=== PATIENT | male | born 1960 | race Hispanic/Latino ===

== ENCOUNTER 2021-01-02 12:30 | Inpatient (IN) | payer BC ==
--- OUTSIDE RECORDS SUMMARY | 2021-01-02 12:37 | XMS REPORT | Continuity of Care Document ---
:10/30/1959 Author Organization [facility] t Address [address] [place] [address] Dr. Bhagat [address] [place] [id number] Care Team Providers Name Role Phone TherapyAly Infusion Attending Clinician Unavailable Problems This patient has no known problems. Allergies, Adverse Reactions, Alerts This patient has no known allergies or adverse reactions. Medications This patient has no known medications. Procedures This patient has no known procedures. Encounters Start End Encounter Admission Attending Care Care Encounter Source Date/Time Date/Time Type Type Clinicians Facility Department ID 2021-01-01 2021-01-01 Nurse Therapy, [facility] [id number] 12:03:39 13:03:39 Visit Adc Aly Atkinson [id number] Infusion [place] [id number] Surgical [id number] [place] 053 Results This patient has no known results.
--- NOTE | 2021-01-02 14:41 | RAD REPORT ---
EXAM DESCRIPTION: RAD - Chest Single View - 01/02/2021 2:34 pm CLINICAL HISTORY: SOB COMPARISON: No comparisons FINDINGS: There are a few mild bilateral airspace opacities. The heart size is within normal limits. No acute osseous abnormality. No significant pleural effusions or pneumothorax. IMPRESSION: Mild bilateral airspace disease concerning for pneumonia.
[2021-01-02 14:49] LABS: Absolute Lymphocytes (CBC) 0.8 K/uL (0.7-4.9); Basophils % 0.3 % (0-1.3); Hematocrit 43.9 % (39.6-49.0); Lymphocytes % 21.9 % (15.3-44.8)
[2021-01-02] MEDS ORDERED: dexAMETHasone 10 MG/ML VIAL ONE (14:50)
[2021-01-02] MEDS ORDERED: LEVALBUTEROL 1.25 MG/3 ML NEB ONE (14:51)
[2021-01-02 14:53] LABS: Protime INR 1.08
[2021-01-02 15:10] LABS: ALT/SGPT 85 U/L (12-78); AST/SGOT 178 U/L (15-37); Albumin 3.4 g/dL (3.4-5.0); Alkaline Phosphatase 88 U/L (45-117); BUN Blood Urea Nitrogen 22 mg/dL (7-18); Bicarbonate 26 mmol/L (21-32); Bilirubin Direct 0.5 mg/dL (0-0.2); Bilirubin Total 0.9 mg/dL (0.2-1.0); Ferritin 831.6 ng/mL (26-388); Glucose Level 116 mg/dL (74-106); Lipase 2857 U/L (73-393); Potassium 4.4 mmol/L (3.5-5.1); Protein, Total 8.4 g/dL (6.4-8.2); Sodium Level 135 mmol/L (136-145); Troponin (Emerg Dept Use Only) < 0.02 ng/mL (0.0-0.045)
--- NOTE | 2021-01-02 17:13 | EDPHYS ---
Physician Documentation [facility] Name: Jose Juan Hall Age: 61 yrs Sex: Male : 10/30/1959 Arrival Date: 01/02/2021 Time: 13:10 Bed DIS12 Private MD: ED Physician Piyush Anderson HPI: 01/02 19:13 This 61 yrs old Male presents to ER via EMS with complaints of Shortness Of kdr Breath - COVID+. 19:13 The patient has shortness of breath at rest, with light activity. Onset: The kdr symptoms/episode began/occurred gradually, 2 day(s) ago. Duration: The symptoms are continuous, and are steadily getting worse. The patient's shortness of breath is aggravated by coughing, exertion, light activity. Associated signs and symptoms: Pertinent positives: non-productive cough, dizziness, nausea. Severity of symptoms: At their worst the symptoms were mild moderate just prior to arrival, in the emergency department the symptoms are unchanged. The patient has not experienced similar symptoms in the past. The patient has not recently seen a physician. EMS states that the patient is Covid positive. He was diagnosed 2 days ago. They noted on their arrival that his oxygen saturation was in the 80s on room air.. Historical: - Allergies: 15:01 tramadol; iw - Home Meds: 15:01 valsartan 90 mg oral once daily [Active]; gabapentin 300 mg oral cap 1 cap 3 times per iw day [Active]; - PMHx: 15:01 Hypertensive disorder; RA; iw - Immunization history:: Client reports having NOT received the Covid vaccine. ROS: 19:13 Constitutional: Negative for fever, chills, and weight loss, Eyes: Negative for injury, kdr pain, redness, and discharge, ENT: Negative for injury, pain, and discharge, Neck: Negative for injury, pain, and swelling, Cardiovascular: Negative for chest pain, palpitations, and edema, Abdomen/GI: Negative for abdominal pain, nausea, vomiting, diarrhea, and constipation, Back: Negative for injury and pain, : Negative for injury, bleeding, discharge, and swelling, MS/Extremity: Negative for injury and deformity, Skin: Negative for injury, rash, and discoloration, Neuro: Negative for headache, weakness, numbness, tingling, and seizure activity. Psych: Negative for depression, anxiety, suicide ideation, homicidal ideation, and hallucinations, Allergy/Immunology: Negative for hives, rash, and allergies, Endocrine: Negative for neck swelling, polydipsia, polyuria, polyphagia, and marked weight changes, Hematologic/Lymphatic: Negative for swollen nodes, abnormal bleeding, and unusual bruising. 19:13 Respiratory: Positive for cough, "sounds productive", dyspnea on exertion, shortness of breath, on exertion. Exam: 19:13 Constitutional: This is a well developed, well nourished patient who is awake, alert, kdr and in no acute distress. Head/Face: Normocephalic, atraumatic. Eyes: Pupils equal round and reactive to light, extra-ocular motions intact. Lids and lashes normal. Conjunctiva and sclera are non-icteric and not injected. Cornea within normal limits. Periorbital areas with no swelling, redness, or edema. Neck: Trachea midline, no thyromegaly or masses palpated, and no cervical lymphadenopathy. Supple, full range of motion without nuchal rigidity, or vertebral point tenderness. No Meningismus. Chest/axilla: Normal chest wall appearance and motion. Nontender with no deformity. No lesions are appreciated. Cardiovascular: Regular rate and rhythm with a normal S1 and S2. No gallops, murmurs, or rubs. Normal PMI, no JVD. No pulse deficits. Abdomen/GI: Soft, non-tender, with normal bowel sounds. No distension or tympany. No guarding or rebound. No evidence of tenderness throughout. Back: No spinal tenderness. No costovertebral tenderness. Full range of motion. Skin: Warm, dry with normal turgor. Normal color with no rashes, no lesions, and no evidence of cellulitis. MS/ Extremity: Pulses equal, no cyanosis. Neurovascular intact. Full, normal range of motion. Neuro: Awake and alert, GCS 15, oriented to person, place, time, and situation. Cranial nerves II-XII grossly intact. Motor strength 5/5 in all extremities. Sensory grossly intact. Cerebellar exam normal. Normal gait. Psych: Awake, alert, with orientation to person, place and time. Behavior, mood, and affect are within normal limits. 19:13 Cardiovascular: Rate: tachycardic, Rhythm: regular. 19:13 Respiratory: the patient does not display signs of respiratory distress, Respirations: normal, Breath sounds: rales, bronchial sounds, rhonchi, stridor, wheezing: that is mild. Vital Signs: 14:46 Weight 99.79 kg; ss 15:00 Pulse Ox 93% on 5 lpm NC; iw 15:46 BP 104 / 60; Pulse 107; Resp 25 S; Temp 97.4(TE); Pulse Ox 93% on 4 lpm NC; iw 15:49 Pulse Ox 87% on R/A; iw 17:51 BP 147 / 84; Pulse 96; Resp 28 S; Pulse Ox 85% 15 lpm ; iw MDM: 17:12 Patient medically screened. kdr 19:18 Data reviewed: vital signs, nurses notes, lab test result(s), EKG, radiologic studies. kdr Counseling: I had a detailed discussion with the patient and/or guardian regarding: the historical points, exam findings, and any diagnostic results supporting the discharge/admit diagnosis, lab results, radiology results, the need for further work-up and treatment in the hospital. 01/02 13:15 Order name: BMP; Complete Time: 15:23 kdr 01/02 13:15 Order name: Blood Culture Adult (2) kdr 01/02 13:15 Order name: C-Reactive Protein; Complete Time: 15:23 kdr 01/02 13:15 Order name: CBC with Diff kdr 01/02 13:15 Order name: D-Dimer; Complete Time: 15:23 kdr 01/02 13:15 Order name: Ferritin; Complete Time: 15:23 kdr 01/02 13:15 Order name: Flu kdr 01/02 13:15 Order name: LFT's; Complete Time: 15:23 kdr 01/02 13:15 Order name: Lactate; Complete Time: 15:23 kdr 01/02 13:15 Order name: Lipase; Complete Time: 15:23 kdr 01/02 13:15 Order name: PT-INR; Complete Time: 15:23 kdr 01/02 13:15 Order name: Procalcitonin; Complete Time: 17:07 kdr 01/02 13:15 Order name: Ptt, Activated; Complete Time: 15:23 kdr 01/02 13:15 Order name: Strep kdr 01/02 13:15 Order name: Troponin (emerg Dept Use Only); Complete Time: 15:23 kdr 01/02 13:15 Order name: Urine Microscopic Only kdr 01/02 13:15 Order name: CXR XRAY; Complete Time: 15:23 kdr 01/02 17:25 Order name: CBC Smear Scan EDMS 01/02 18:38 Order name: Lactate Sepsis 2 HR Follow-up EDMS 01/03 06:18 Order name: Comprehensive Metabolic Panel EDMS 01/03 06:18 Order name: Lipid Profile EDMS 01/03 06:18 Order name: C-Reactive Protein EDMS 01/03 06:18 Order name: Lipase EDMS 01/03 06:18 Order name: Ferritin EDMS 01/03 06:22 Order name: D-Dimer EDMS 01/03 06:28 Order name: CBC with Automated Diff EDMS 01/03 09:20 Order name: US EDMS 01/03 14:50 Order name: Manual Differential EDMS 01/02 13:15 Order name: EKG; Complete Time: 13:16 kdr 01/02 13:15 Order name: Cardiac monitoring; Complete Time: 15:41 kdr 01/02 13:15 Order name: Droplet/Contact Precautions; Complete Time: 15:41 kdr 01/02 13:15 Order name: EKG - Nurse/Tech; Complete Time: 15:41 kdr 01/02 13:15 Order name: IV Start; Complete Time: 15:41 kdr 01/02 13:15 Order name: Labs collected and sent; Complete Time: 15:41 kdr 01/02 13:15 Order name: O2 Per Protocol; Complete Time: 15:41 kdr 01/02 13:15 Order name: O2 Sat Monitoring; Complete Time: 15:41 kdr 01/02 14:15 Order name: Labs - recollect needed: recollect blue, green, and purple tubes; Complete eb Time: 14:59 01/02 18:51 Order name: NPO EDMS Administered Medications: 14:59 Drug: Decadron - Dexamethasone 10 mg Route: IVP; Site: right antecubital; iw 15:00 Drug: Xopenex (levalbuterol) (3) 1.25 mg Route: Inhalation; iw Disposition Summary: 01/02/21 17:12 Hospitalization Ordered Hospitalization Status: Inpatient Admission kdr Provider: Irwin Ashford Condition: Fair kdr Problem: new kdr Symptoms: have improved kdr Bed/Room Type: Standard kdr Location: Telemetry/MedSurg (Inpatient)(01/03/21 19:04) dw Room Assignment: 421(01/03/21 19:04) dw Diagnosis - Other viral pneumonia kdr - SARS-associated coronavirus as the cause of diseases classified elsewhere kdr - Respiratory failure, unspecified with hypoxia - Saturations were in the 80% range kdr on room air Forms: - Medication Reconciliation Form kdr - SBAR form kdr Signatures: Dispatcher [employer] EDMS Mariam Alejandro RN FRANK Sharonda Ye RN FRANK Piyush Anderson MD MD [facility] Yue Salvador RN RN Tresa Tena RN RN Lynette Layton Corrections: (The following items were deleted from the chart) 15:41 13:15 Moore ordered. kdr iw 18:16 13:15 Urine Dipstick-Ancillary ordered. kdr iw 20:51 17:12 [facility] 20:[facility]12 [facility] 01/03 19:04 01/02 20:51 [facility] ER HOLD [facility] 01/03 19:04 01/02 20:51 ERHOLD- [facility]
--- NOTE | 2021-01-02 17:13 | ER ---
Nurse's Notes [facility] Name: Jose Juan Hall Age: 61 yrs Sex: Male : 10/30/1959 Arrival Date: 01/02/2021 Time: 13:10 Bed DIS12 Private MD: Diagnosis: Other viral pneumonia;SARS-associated coronavirus as the cause of diseases classified elsewhere;Respiratory failure, unspecified with hypoxia-Saturations were in the 80% range on room air Presentation: 01/02 13:15 Chief complaint: EMS states: Patient is COVID positive. Diagnosed two days ago. Wants ss to be checked out. EMS reports pt was low 80's on RA. Coronavirus screen: Client reports previous positive COVID test result. Date of collection: January 02, 2021. 13:15 Method Of Arrival: EMS: [facility] ss 13:15 Acuity: HARRY 3 ss Triage Assessment: 13:17 General: Appears in no apparent distress. Behavior is calm, cooperative. Pain: Denies ss pain. Historical: - Allergies: 15:01 tramadol; iw - Home Meds: 15:01 valsartan 90 mg oral once daily [Active]; gabapentin 300 mg oral cap 1 cap 3 times per iw day [Active]; - PMHx: 15:01 Hypertensive disorder; RA; iw - Immunization history:: Client reports having NOT received the Covid vaccine. Screenin:58 Abuse screen: Denies threats or abuse. Denies injuries from another. Tuberculosis iw screening: No symptoms or risk factors identified. Assessment: 16:57 Reassessment: Patient appears in no apparent distress at this time. Patient and/or iw family updated on plan of care and expected duration. Pain level reassessed. 01/03 19:58 Reassessment: Report called to receiving nurse on fourth pt left via wheelchair with O2 zb pt tolerating well. Vital Signs: 01/02 14:46 Weight 99.79 kg; ss 15:00 Pulse Ox 93% on 5 lpm NC; iw 15:46 BP 104 / 60; Pulse 107; Resp 25 S; Temp 97.4(TE); Pulse Ox 93% on 4 lpm NC; iw 15:49 Pulse Ox 87% on R/A; iw 17:51 BP 147 / 84; Pulse 96; Resp 28 S; Pulse Ox 85% 15 lpm ; iw ED Course: 13:10 Patient arrived in ED. ss 13:13 Brandon Avalos NP is PHCP. pm1 13:13 Piyush Anderson MD is Attending Physician. pm1 13:17 Triage completed. ss 13:47 Inserted saline lock: 20 gauge in left antecubital area, using aseptic technique. Blood mt collected. 13:52 Yue Salvador, RN is Primary Nurse. iw 14:34 CXR XRAY In Process Unspecified. EDMS 17:09 Irwin Ashford MD is Hospitalizing Provider. kdr 01/03 19:27 Primary Nurse role handed off by Yue Salvador, RN mw2 Administered Medications: 01/02 14:59 Drug: Decadron - Dexamethasone 10 mg Route: IVP; Site: right antecubital; iw 15:00 Drug: Xopenex (levalbuterol) (3) 1.25 mg Route: Inhalation; iw Outcome: 17:12 Decision to Hospitalize by Provider. kdr 01/03 20:42 Patient left the ED. ea Signatures: Dispatcher [employer] EDMS Piyush Anderson MD MD [facility] Yue Salvador, FRANK MARIE Tresa Tena RN RN Brandon Avalos NP [employer]NA[employer] pm1 Anette Mckinnon mt, Elena RN FRANK Dian Neely mw2 Michelle Glavan RN RN zb Corrections: (The following items were deleted from the chart) 01/02 15:01 13:15 Chief complaint: EMS states: Patient is COVID positive. Diagnosised two days ago. iw Wants to be checked out. ss 18:15 15:46 BP 104 / 60; Pulse 107bpm; Resp 25bpm; Spontaneous; Pulse Ox 93% 4 lpm Nasal iw Cannula; iw
[2021-01-02 17:25] LABS: Blood Morphology Comment NOT SEEN (NOT SEEN); Platelet Estimate DECR; White Blood Cell Scan OK (OK)
[2021-01-02] MEDS ORDERED: ALBUTEROL 2.5 MG/3 ML NEB SOL NEB PRN (18:47)
[2021-01-02] MEDS ORDERED: MORPHINE 2 MG/ML SYR IV PRN (18:47)
[2021-01-02] MEDS ORDERED: ONDANSETRON 4 MG/2 ML VIAL IV PRN (18:47)
[2021-01-02] MEDS: NA CHLORIDE 0.9% 1,000 ML IV SCH (19:00)
[2021-01-02] MEDS: IPRATROPIUM BROM 0.5MG/2.5ML NEB SCH (19:55)
[2021-01-02] MEDS ORDERED: IPRATROPIUM BROM 0.5MG/2.5ML ONE ×2 (20:10→21:23)
[2021-01-02] MEDS ORDERED: METHYLPREDNISOLONE 125 MG INJ IV SCH (21:00)
[2021-01-02] MEDS ORDERED: APIXABAN 5 MG TABLET PO SCH (21:00)
[2021-01-02] MEDS ORDERED: METHYLPREDNISOLONE 40 MG INJ ONE (21:23)
[2021-01-02] MEDS ORDERED: APIXABAN 5 MG TABLET ONE (21:23)
[2021-01-02] MEDS ORDERED: ACETAMINOPHEN 500 MG TAB ONE (21:23)
[2021-01-02] MEDS ORDERED: NA CHLORIDE 0.9% 1,000 ML ONE (23:56)
[2021-01-03] MEDS: IPRATROPIUM BROM 0.5MG/2.5ML NEB SCH ×2 (02:24→08:40)
[2021-01-03] MEDS ORDERED: IPRATROPIUM BROM 0.5MG/2.5ML ONE ×2 (02:47→08:20)
[2021-01-03] MEDS: ACETAMINOPHEN 500 MG TAB PO PRN (05:15)
[2021-01-03] MEDS ORDERED: ACETAMINOPHEN 500 MG TAB ONE (05:28)
--- NOTE | 2021-01-03 05:54 | P.HP ---
Certification for Inpatient Patient admitted to: Inpatient With expected LOS: >2 Midnights Patient will require the following post-hospital care: None Practitioner: I am a practitioner with admitting privileges, knowledge of patient current condition, hospital course, and medical plan of care. Services: Services provided to patient in accordance with Admission requirements found in Title 42 Section 412.3 of the Code of Federal Regulations Patient History Date of Service: 01/02/21 Reason for admission: COVID-19 pneumonia History of Present Illness: Patient is a 61-year-old gentleman who came to the hospital with COVID-19 pneumonia. Patient was in respiratory distress. Patient was satting 70%. Patient was placed on 8 L oxygen and his saturations came up into the low 90s and high 80 percentile. Patient be admitted to the hospital for further evaluation. Patient was tested positive on Tuesday. Patient has history of rheumatoid arthritis. Patient is on immunosuppressants. Patient will be started on IV steroids. Will monitor patient's labs closely. Patient's lipase was also elevated. There is no known history of alcohol abuse. Repeat lipase level and abdominal ultrasound. If symptoms are not improving any starts having abdominal pain will do a dedicated CT scan. Patient be admitted to the hospital for further evaluation. Allergies tramadol Allergy (Verified 01/02/21 21:49) Anaphylaxis - Past Medical/Surgical History -: Rheumatoid arthritis -: Hypertension Past Surgical History: Patient denies surgical history - Family History Father Family History: Reviewed- Non-Contributory - Social History Smoking Status: Never smoker Alcohol use: No CD- Drugs: No Review of Systems 10-point ROS is otherwise unremarkable Physical Examination - Vital Signs Temperature: 99 F Blood Pressure: 140/70 Pulse: 99 Respirations: 24 Pulse Ox (%): 80 - Physical Exam General: Alert, In no apparent distress, Oriented x3 HEENT: Atraumatic, PERRLA, Mucous membr. moist/pink, EOMI, Sclerae nonicteric Neck: Supple, 2+ carotid pulse no bruit, No LAD, Without JVD or thyroid abnormality Respiratory: Diminished, Expiratory wheezes Cardiovascular: Regular rate/rhythm, Normal S1 S2 Gastrointestinal: Normal bowel sounds, Soft and benign, Non-distended, Tenderness Musculoskeletal: No clubbing, No swelling, No tenderness Integumentary: No rashes Neurological: Normal gait, Normal speech, Normal strength at 5/5 x4 extr, Normal tone, Sensation intact, Cranial nerves 3-12 intact, Normal affect Lymphatics: No axilla or inguinal lymphadenopathy - Studies Laboratory Data (last 24 hrs) 01/02/21 14:30: PT 12.4, INR 1.08, APTT 30.8 01/02/21 14:30: WBC 3.50 L, Hgb 14.3, Hct 43.9, Plt Count 146 L 01/02/21 14:30: Sodium 135 L, Potassium 4.4, BUN 22 H, Creatinine 1.19, Glucose 116 H, Total Bilirubin 0.9, AST 178 H, ALT 85 H, Alkaline Phosphatase 88, Lipase 2857 H Assessment & Plan - Problems (Diagnosis) (1) Pneumonia due to COVID-19 virus Current Visit: Yes Status: Acute (2) Hypoxemia Current Visit: Yes Status: Acute (3) Pancreatitis Current Visit: Yes Status: Acute (4) History of rheumatoid arthritis Current Visit: Yes Status: Acute - Plan 1. Continue with IV steroids 2. Monitor inflammatory markers 3. Repeat chest x-ray 4. O2 per protocol 5. Pulmonary consultation if symptoms worsen 6. Continue with albuterol inhaler therapy; also supportive care 7. Monitor LFTs and lipase along with abdominal ultrasound 8. GI and DVT prophylaxis Discharge Plan: Home Plan to discharge in: Greater than 2 days - Advance Directives Does patient have a Living Will: No Does patient have a Durable POA for Healthcare: No - Code Status/Comfort Care Code Status Assessed: Yes Code Status: Full Code Critical Care: No Time Spent Managing PTS Care (In Minutes): 35
[2021-01-03 06:04] LABS: Absolute Lymphocytes (CBC) 0.5 K/uL (0.7-4.9); Basophils % 0.2 % (0-1.3); Hematocrit 43.3 % (39.6-49.0); Lymphocytes % 31.2 % (15.3-44.8); MPV 7.9 fL (7.6-11.3); RBC Red Blood Cell Count 5.65 M/uL (4.33-5.43)
[2021-01-03 06:17] LABS: Albumin 3.2 g/dL (3.4-5.0); Bilirubin Total 0.8 mg/dL (0.2-1.0); Ferritin 815.2 ng/mL (26-388); Protein, Total 8.4 g/dL (6.4-8.2)
--- NOTE | 2021-01-03 06:19 | P.PN ---
Subjective Date of Service: 01/03/21 Chief Complaint: COVID-19 pneumonia Subjective: Improving (Less short of breath noted. Less nausea, vomiting and abdominal pain. Patient on 4 L per nasal cannula.) Physical Examination - Vital Signs Temperature: 99 F Blood Pressure: 140/70 Pulse: 99 Respirations: 24 Pulse Ox (%): 80 - Studies Laboratory Data (last 24 hrs) 01/02/21 14:30: PT 12.4, INR 1.08, APTT 30.8 01/02/21 14:30: WBC 3.50 L, Hgb 14.3, Hct 43.9, Plt Count 146 L 01/02/21 14:30: Sodium 135 L, Potassium 4.4, BUN 22 H, Creatinine 1.19, Glucose 116 H, Total Bilirubin 0.9, AST 178 H, ALT 85 H, Alkaline Phosphatase 88, Lipase 2857 H Assessment & Plan Discharge Plan: Home Plan to discharge in: 72 Hours Physician Review Additional Text: COVID: Positive, unvaccinated Initial chest x-ray: COMPARISON: No comparisons FINDINGS: There are a few mild bilateral airspace opacities. The heart size is within normal limits.No acute osseous abnormality. No significant pleural effusions or pneumothorax. IMPRESSION: Mild bilateral airspace disease concerning for pneumonia. Abdominal ultrasound: Pending Physical exam: General: Alert, In no apparent distress, Oriented x3 HEENT: Atraumatic, PERRLA, Mucous membr. moist/pink, EOMI, Sclerae nonicteric Neck: Supple, 2+ carotid pulse no bruit, No LAD, Without JVD or thyroid abnormality Respiratory: Letter air movement bilateral. Less oxygen use today. Currently on 4 L per nasal cannula. Cardiovascular: Regular rate/rhythm, Normal S1 S2 Gastrointestinal: Less pain to the epigastric region. Soft. Good bowel movements bilateral. Musculoskeletal: No clubbing, No swelling, No tenderness Integumentary: No rashes Neurological: Normal gait, Normal speech, Normal strength at 5/5 x4 extr, Normal tone, Sensation intact, Cranial nerves 3-12 intact, Normal affect Lymphatics: No axilla or inguinal lymphadenopathy Impression: Dyspnea secondary to bilateral Covid pneumonia with hypoxia Acute pancreatitis Elevated liver function suspect underlying fatty liver History of rheumatoid arthritis Plan: Dyspnea secondary to bilateral Covid pneumonia with hypoxia: His breathing has improved. Patient now down to 4 L per nasal cannula. Ferritin and CRP also improved. Liver function tests remain elevated but improved. Will adjust IV Solu-Medrol to 60 mg IV 3 times a day. Continue with vitamin supplementation. Will change DVT prophylaxis to Lovenox. Continue aspirin. Provide medication for cough. Continue to monitor CRP, ferritin and liver function tests. Pulmonology consulted. Await recommendations. Encourage incentive spirometer, proning, ambulation. Anticipate continued improvement over the next 72 hours. Acute pancreatitis: Lipase improved. Abdominal ultrasound pending. Will start clear liquid diet. Will advance diet slowly. Continue IV fluids for now. Hold fluids if taking good oral intake. Elevated liver function suspect underlying fatty liver: Will check abdominal ultrasound. Will monitor liver function test. History of rheumatoid arthritis: Continue with above plan of care. Obtain and verify home medication. CODE STATUS: Full code DVT prophylaxis: Lovenox Advance care [id number] minutes: Home at discharge Time Spent Managing Pts Care (In Minutes): 55
[2021-01-03] MEDS: NA CHLORIDE 0.9% 1,000 ML IV SCH ×2 (08:20→22:25)
[2021-01-03] MEDS ORDERED: METHYLPREDNISOLONE 125 MG INJ ONE ×3 (08:20→17:06)
[2021-01-03] MEDS ORDERED: APIXABAN 5 MG TABLET ONE (08:20)
[2021-01-03] MEDS ORDERED: NA CHLORIDE 0.9% 1,000 ML ONE (08:21)
[2021-01-03] MEDS: METHYLPREDNISOLONE 125 MG INJ IV SCH ×3 (09:00→21:00)
[2021-01-03] MEDS: ASPIRIN EC 81 MG TAB PO SCH (09:00)
[2021-01-03] MEDS: FAMOTIDINE 20 MG TAB PO SCH ×2 (09:00→22:24)
[2021-01-03] MEDS: VITAMIN D 1000 UNIT TAB PO SCH (09:00)
[2021-01-03] MEDS: THIAMINE HCL 100 MG TABLET PO SCH ×2 (09:00→22:24)
[2021-01-03] MEDS: ASCORBIC ACID 500 MG TABLET PO SCH ×3 (09:00→22:24)
--- NOTE | 2021-01-03 09:19 | RAD REPORT ---
EXAM DESCRIPTION: US - Abdomen Exam Complete - 01/03/2021 8:35 am CLINICAL HISTORY: Acute pancreatitis COMPARISON: No comparisons FINDINGS: Gallbladder size is normal. No gallstones, wall thickening or pericholecystic fluid. Commo n bile duct is normal with no common duct stone identified. Liver and spleen are normal size. Liver shows a coarsened, increased hepatic echogenicity is nonspeci fic but commonly seen with fatty infiltration. No capsule nodularity or focal lesion identifiable. Do ppler evaluation shows no portal vein abnormality. The pancreas is grossly normal but partially obscured by bowel. No peripancreatic mass or abnormal fl uid collection suspected. No hydronephrosis or suspicious mass in either kidney. Two echogenic foci in the upper pole right kid rico approximately 5 mm in size noted along with similar sized echogenic focus in the lower pole left kidney. These appear to be within the parenchyma of the kidney rather than a calyx. Long-term signifi cance is doubtful. These could be benign calcifications of the parenchyma. Angiomyolipomas are possib le. Aorta and IVC show no significant finding. No ascites or bulky lymphadenopathy. IMPRESSION: Fatty infiltration of a normal size liver. No focal liver lesions seen. No gallbladder a bnormality identified. Pancreas is grossly normal but partially obscured by bowel. Ongoing concerns for pancreatitis or need to delineate severity of pancreatitis could be addressed using CT imaging. No acute renal finding seen. Echogenic foci in each kidney within the parenchyma could be benign calc ifications or angiomyelolipomas. Long-term significance is doubtful. These could be further evaluated if CT imaging is performed for pancreatic assessment.
[2021-01-03] MEDS ORDERED: ASCORBIC ACID 500 MG TABLET ONE ×2 (12:29→17:06)
[2021-01-03] MEDS ORDERED: ASPIRIN 81 MG CHEWABLE TABLET ONE (12:29)
[2021-01-03] MEDS ORDERED: VITAMIN D 1000 UNIT TAB ONE (12:29)
[2021-01-03] MEDS ORDERED: THIAMINE HCL 100 MG TABLET ONE (12:29)
[2021-01-03] MEDS ORDERED: ZINC SULFATE 220 MG CAP ONE (12:29)
[2021-01-03] MEDS ORDERED: FAMOTIDINE 20 MG TAB ONE (12:30)
[2021-01-03 14:49] LABS: Platelet Estimate DECR
[2021-01-03 14:50] LABS: Blood Morphology Comment NOT SEEN (NOT SEEN)
[2021-01-03] MEDS: ENOXAPARIN 40 MG/0.4 ML SQ SCH (17:00)
[2021-01-03] MEDS: HYDROCODONE/APAP 7.5/325 MG TAB PO PRN (23:05)
--- NOTE | 2021-01-04 06:22 | P.PN ---
Subjective Date of Service: 01/04/21 Chief Complaint: COVID-19 pneumonia Subjective: Improving (Patient reports improvement. Less abdominal pain noted. Currently on 5 L per nasal cannula.) Physical Examination - Vital Signs Temperature: 97 F Blood Pressure: 135/70 Pulse: 80 Respirations: 18 Pulse Ox (%): 88 Assessment & Plan Discharge Plan: Home Plan to discharge in: 48 Hours Physician Review Additional Text: COVID: Positive, unvaccinated Initial chest x-ray: COMPARISON: No comparisons FINDINGS: There are a few mild bilateral airspace opacities. The heart size is within normal limits.No acute osseous abnormality. No significant pleural effusions or pneumothorax. IMPRESSION: Mild bilateral airspace disease concerning for pneumonia. Abdominal ultrasound: COMPARISON: No comparisons FINDINGS: Gallbladder size is normal. No gallstones, wall thickening or pericholecystic fluid. Common bile duct is normal with no common duct stone identified. Liver and spleen are normal size. Liver shows a coarsened, increased hepatic echogenicity is nonspecific but commonly seen with fatty infiltration. No capsule nodularity or focal lesion identifiable. Doppler evaluation shows no portal vein abnormality. The pancreas is grossly normal but partially obscured by bowel. No peripancreatic mass or abnormal fluid collection suspected. No hydronephrosis or suspicious mass in either kidney. Two echogenic foci in the upper pole right kidney approximately 5 mm in size noted along with similar sized echogenic focus in the lower pole left kidney. These appear to be within the parenchyma of the kidney rather than a calyx. Long-term significance is doubtful. These could be benign calcifications of the parenchyma. Angiomyolipomas are possible. Aorta and IVC show no significant finding. No ascites or bulky lymphadenopathy. IMPRESSION: Fatty infiltration of a normal size liver. No focal liver lesions seen. No gallbladder abnormality identified. Pancreas is grossly normal but partially obscured by bowel. Ongoing concerns for pancreatitis or need to delineate severity of pancreatitis could be addressed using CT imaging. No acute renal finding seen. Echogenic foci in each kidney within the parenchyma could be benign calcifications or angiomyelolipomas. Long-term significance is doubtful. These could be further evaluated if CT imaging is performed for pancreatic assessment. Physical exam: General: Alert, In no apparent distress, Oriented x3 HEENT: Atraumatic, PERRLA, Mucous membr. moist/pink, EOMI, Sclerae nonicteric Neck: Supple, 2+ carotid pulse no bruit, No LAD, Without JVD or thyroid abnormality Respiratory: Better air movement bilateral. Currently on 5 L per nasal cannula. Cardiovascular: Regular rate/rhythm, Normal S1 S2 Gastrointestinal: Less pain to the epigastric region. Soft. Good bowel movements bilateral. Musculoskeletal: No clubbing, No swelling, No tenderness Integumentary: No rashes Neurological: Normal gait, Normal speech, Normal strength at 5/5 x4 extr, Normal tone, Sensation intact, Cranial nerves 3-12 intact, Normal affect Lymphatics: No axilla or inguinal lymphadenopathy Impression: Dyspnea secondary to bilateral Covid pneumonia with hypoxia Acute pancreatitis Elevated liver function suspect underlying fatty liver History of rheumatoid arthritis Plan: Dyspnea secondary to bilateral Covid pneumonia with hypoxia: Overall patient improved. Currently on 5 L per nasal cannula. Continue with Solu-Medrol and vitamin supplementation. CRP and ferritin improved. Will advance diet to full liquid for his pancreatitis. Anticipate continued improvement. Patient on Lovenox for DVT prophylaxis. Continue to monitor CRP, ferritin and liver function tests. Pulmonology consulted. Await recommendations. Encourage incentive spirometer, proning, ambulation. Anticipate continued improvement over the next 48 hours. Acute pancreatitis: Lipase improved. Abdominal ultrasound pending. Will advance diet to full liquid. Consider changing diet to regular tomorrow. Elevated liver function suspect underlying fatty liver: Continue to monitor liver function test. History of rheumatoid arthritis: Continue with above plan of care. Obtain and v erify home medication. CODE STATUS: Full code DVT prophylaxis: Lovenox Advance care [id number] minutes: Home at discharge Time Spent Managing Pts Care (In Minutes): 55
[2021-01-04 07:23] LABS: Absolute Lymphocytes (CBC) 0.6 K/uL (0.7-4.9); Basophils % 0.1 % (0-1.3); Hematocrit 41.7 % (39.6-49.0); Lymphocytes % 9.5 % (15.3-44.8); MPV 7.5 fL (7.6-11.3); RBC Red Blood Cell Count 5.44 M/uL (4.33-5.43)
[2021-01-04] MEDS: METHYLPREDNISOLONE 125 MG INJ IV SCH ×3 (07:44→21:40)
[2021-01-04] MEDS: THIAMINE HCL 100 MG TABLET PO SCH ×2 (07:44→21:41)
[2021-01-04] MEDS: VITAMIN D 1000 UNIT TAB PO SCH (07:44)
[2021-01-04] MEDS: FAMOTIDINE 20 MG TAB PO SCH ×2 (07:44→21:41)
[2021-01-04] MEDS: ASCORBIC ACID 500 MG TABLET PO SCH ×3 (07:44→21:41)
[2021-01-04] MEDS: ASPIRIN EC 81 MG TAB PO SCH (07:44)
[2021-01-04 07:46] LABS: ALT/SGPT 62 U/L (12-78); AST/SGOT 93 U/L (15-37); Alkaline Phosphatase 77 U/L (45-117); BUN Blood Urea Nitrogen 18 mg/dL (7-18); Bicarbonate 27 mmol/L (21-32); Bilirubin Total 0.8 mg/dL (0.2-1.0); Ferritin 734.5 ng/mL (26-388); Glucose Level 130 mg/dL (74-106); Lipase 1575 U/L (73-393); Magnesium 2.2 mg/dL (1.8-2.4); Potassium 4.2 mmol/L (3.5-5.1); Protein, Total 7.5 g/dL (6.4-8.2); Sodium Level 141 mmol/L (136-145)
[2021-01-04] MEDS: HYDROCODONE/APAP 7.5/325 MG TAB PO PRN ×2 (07:47→16:03)
[2021-01-04] MEDS: NA CHLORIDE 0.9% 1,000 ML IV SCH (11:38)
--- NOTE | 2021-01-04 13:54 | P.CNS ---
Date of Consult: 01/04/21 Reason for Consult: COVID penumonia Chief Complaint: COVID-19 pneumonia History of Present Illness: Age 61 AW COVID penumonia/ severe COVID/ on NC/Stable Allergies tramadol Allergy (Verified 01/02/21 21:49) Anaphylaxis Home Medications: Ascorbic Acid [Vitamin C*] 1 tab PO DAILY 01/04/21 Celecoxib [Celebrex] 100 mg PO BID 01/04/21 Cholecalciferol (Vitamin D3) [Vitamin D3] 1,000 unit PO DAILY 01/04/21 Cyanocobalamin (Vitamin B-12) [Vitamin B12] 2,500 mcg PO DAILY 01/04/21 Folic Acid 1 mg PO DAILY 01/04/21 Gabapentin 300 mg PO TID 01/04/21 Hydrocodone Bit/Acetaminophen [Hydrocodon-Acetaminophn 10-325] 1 tab PO TID 01/04/21 Multivit-Min/FA/Lycopen/Lutein [Centravites 50 Plus Tablet] 1 tab PO DAILY 01/04/21 Secukinumab [Cosentyx Pen] 300 mg SQ SEECOM 01/04/21 Valsartan [Diovan] 160 mg PO DAILY 01/04/21 Zinc Sulfate [Zinc Sulfate*] 1 tab PO DAILY 01/04/21 - Past Medical/Surgical History -: Rheumatoid arthritis -: Hypertension - Family History Father Family History: Reviewed- Non-Contributory - Social History Alcohol use: No CD- Drugs: No Review of Systems General: Weakness Respiratory: Shortness of Breath Physical Examination Temp Pulse Resp BP Pulse Ox 98.8 F 86 23 H 140/80 85 L 01/04/21 08:00 01/04/21 08:00 01/04/21 08:47 01/04/21 08:00 01/04/21 08:47 General: Alert, Oriented x3, Cooperative - Problems (1) Pneumonia due to COVID-19 virus Current Visit: Yes Status: Acute Plan: Age 61 AW COVID pneumonia/Doing well/ Poss DC am/ Set up for homeO2/labs and XRY reviewed/ will not qulaify for Barctinib/poss DC home AM
[2021-01-04] MEDS: ENOXAPARIN 40 MG/0.4 ML SQ SCH (16:02)
[2021-01-04] MEDS: GABAPENTIN 300 MG CAP PO SCH (21:41)
[2021-01-05 05:49] LABS: Absolute Lymphocytes (CBC) 0.4 K/uL (0.7-4.9); Basophils % 0.1 % (0-1.3); Hematocrit 39.7 % (39.6-49.0); Lymphocytes % 9.8 % (15.3-44.8); MPV 7.7 fL (7.6-11.3)
[2021-01-05 06:04] LABS: ALT/SGPT 67 U/L (12-78); AST/SGOT 90 U/L (15-37); Albumin 2.6 g/dL (3.4-5.0); Alkaline Phosphatase 76 U/L (45-117); BUN Blood Urea Nitrogen 18 mg/dL (7-18); Bicarbonate 28 mmol/L (21-32); Bilirubin Total 0.7 mg/dL (0.2-1.0); Ferritin 581.7 ng/mL (26-388); Glucose Level 130 mg/dL (74-106); Lipase 1000 U/L (73-393); Magnesium 2.3 mg/dL (1.8-2.4); Potassium 4.3 mmol/L (3.5-5.1); Protein, Total 6.6 g/dL (6.4-8.2); Sodium Level 140 mmol/L (136-145)
--- NOTE | 2021-01-05 06:25 | P.PN ---
Subjective Date of Service: 01/05/21 Chief Complaint: COVID-19 pneumonia Subjective: Other (Patient tolerating full liquid diet. Less pain noted. Reports some shortness of breath today.) Physical Examination - Vital Signs Temperature: 98.5 F Blood Pressure: 100/65 Pulse: 72 Respirations: 16 Pulse Ox (%): 83 Assessment & Plan Discharge Plan: Home Plan to discharge in: 48 Hours Physician Review Additional Text: COVID: Positive, unvaccinated Initial chest x-ray: COMPARISON: No comparisons FINDINGS: There are a few mild bilateral airspace opacities. The heart size is within normal limits.No acute osseous abnormality. No significant pleural effusions or pneumothorax. IMPRESSION: Mild bilateral airspace disease concerning for pneumonia. Abdominal ultrasound: COMPARISON: No comparisons FINDINGS: Gallbladder size is normal. No gallstones, wall thickening or pericholecystic fluid. Common bile duct is normal with no common duct stone identified. Liver and spleen are normal size. Liver shows a coarsened, increased hepatic echogenicity is nonspecific but commonly seen with fatty infiltration. No capsule nodularity or focal lesion identifiable. Doppler evaluation shows no portal vein abnormality. The pancreas is grossly normal but partially obscured by bowel. No peripancreatic mass or abnormal fluid collection suspected. No hydronephrosis or suspicious mass in either kidney. Two echogenic foci in the upper pole right kidney approximately 5 mm in size noted along with similar sized echogenic focus in the lower pole left kidney. These appear to be within the parenchyma of the kidney rather than a calyx. Long-term significance is doubtful. These could be benign calcifications of the parenchyma. Angiomyolipomas are possible. Aorta and IVC show no significant finding. No ascites or bulky lymphadenopathy. IMPRESSION: Fatty infiltration of a normal size liver. No focal liver lesions seen. No gallbladder abnormality identified. Pancreas is grossly normal but partially obscured by bowel. Ongoing concerns for pancreatitis or need to delineate severity of pancreatitis could be addressed using CT imaging. No acute renal finding seen. Echogenic foci in each kidney within the parenchyma could be benign calcifications or angiomyelolipomas. Long-term significance is doubtful. These could be further evaluated if CT imaging is performed for pancreatic assessment. Physical exam: General: Alert, In no apparent distress, Oriented x3 HEENT: Mucous membranes moist Neck: Supple Respiratory: Clear. Currently on 6 L per nasal cannula Cardiovascular: Regular rate/rhythm, Normal S1 S2 Gastrointestinal: Continue to have less pain to the epigastric region. Good bowel movement Musculoskeletal: No clubbing, No swelling, No tenderness Integumentary: No rashes Neurological: Normal gait, Normal speech, Normal strength at 5/5 x4 extr, Normal tone, Sensation intact, Cranial nerves 3-12 intact, Normal affect Lymphatics: No axilla or inguinal lymphadenopathy Impression: Dyspnea secondary to bilateral Covid pneumonia with hypoxia Acute pancreatitis Elevated liver function with fatty liver History of rheumatoid arthritis Plan: Dyspnea secondary to bilateral Covid pneumonia with hypoxia: Clinically patient improved. Currently on 6 L per nasal cannula. Continue to wean off oxygen to maintain sats above 93%. Continue IV steroids and supplementation. CRP and ferritin improved. Lipase improved. Patient tolerating current full liquid diet. Will advance to GI soft diet. Patient on Lovenox for DVT prophylaxis. Continue to monitor CRP, ferritin, lipase and liver function tests. Encourage incentive spirometer, proning, ambulation. Anticipate continued improvement over the next 48 hours per. Acute pancreatitis: Lipase improved. Tolerating full liquid diet. Will increase diet to GI soft. Continue to monitor lab closely. Elevated liver function with fatty liver: Continue to monitor liver function test. History of rheumatoid arthritis: Continue home medications of gabapentin. Pain medication provided. CODE STATUS: Full code DVT prophylaxis: Lovenox Advance care [id number] minutes: Home at discharge Time Spent Managing Pts Care (In Minutes): 55
[2021-01-05] MEDS: METHYLPREDNISOLONE 125 MG INJ IV SCH ×3 (07:36→20:57)
[2021-01-05] MEDS: HOME MED 1 EA UNK (Cyanocobalamin (Vitamin B-12) [Vitamin B12] 2,500 MCG Tablet) PO SCH (07:37)
[2021-01-05] MEDS: FAMOTIDINE 20 MG TAB PO SCH ×2 (07:37→20:57)
[2021-01-05] MEDS: FOLIC ACID 1 MG TABLET PO SCH (07:37)
[2021-01-05] MEDS: GABAPENTIN 300 MG CAP PO SCH ×3 (07:37→20:57)
[2021-01-05] MEDS: ASCORBIC ACID 500 MG TABLET PO SCH ×3 (07:37→20:57)
[2021-01-05] MEDS: VITAMIN D 1000 UNIT TAB PO SCH (07:37)
[2021-01-05] MEDS: ASPIRIN EC 81 MG TAB PO SCH (07:37)
[2021-01-05] MEDS: THIAMINE HCL 100 MG TABLET PO SCH ×2 (07:38→20:57)
--- NOTE | 2021-01-05 14:39 | RAD REPORT ---
EXAM DESCRIPTION: RAD - Chest Single View - 01/05/2021 2:13 pm CLINICAL HISTORY: COVID-19 pneumonia COMPARISON: Portable January 02 TECHNIQUE: AP portable chest image was obtained 01/05/2021 2:13 pm . FINDINGS: Lung volumes are low. Interstitial and alveolar opacities are present. Findings consistent with the provided history of COVID-19 pneumonia. Lower lung volume and technical differences three-v iew differential in appearance. There is probably been a slight progression in the disease with the l ower lung volume exaggerating the differential. Heart and vasculature are normal. No measurable pleural effusion and no pneumothorax. No acute bony abnormality seen. No acute aortic findings suspected. IMPRESSION: Stable to slightly worsened COVID-19 pneumonia pattern since January 02.
[2021-01-05] MEDS: ENOXAPARIN 40 MG/0.4 ML SQ SCH (16:02)
[2021-01-06] MEDS: ACETAMINOPHEN 500 MG TAB PO PRN (05:07)
[2021-01-06 06:10] LABS: Absolute Lymphocytes (CBC) 0.3 K/uL (0.7-4.9); Basophils % 0.1 % (0-1.3); Hematocrit 40.7 % (39.6-49.0); MPV 7.9 fL (7.6-11.3); RBC Red Blood Cell Count 5.31 M/uL (4.33-5.43)
--- NOTE | 2021-01-06 06:12 | P.PN ---
Subjective Date of Service: 01/06/21 Chief Complaint: COVID-19 pneumonia Subjective: Other (Patient tolerating diet. Pain improved. Patient requiring 15 L) Physical Examination - Vital Signs Temperature: 98.2 F Blood Pressure: 150/80 Pulse: 47 Respirations: 20 Pulse Ox (%): 93 Assessment & Plan Discharge Plan: Home Plan to discharge in: 72 Hours Physician Review Additional Text: COVID: Positive, unvaccinated Initial chest x-ray: COMPARISON: No comparisons FINDINGS: There are a few mild bilateral airspace opacities. The heart size is within normal limits.No acute osseous abnormality. No significant pleural effusions or pneumothorax. IMPRESSION: Mild bilateral airspace disease concerning for pneumonia. Abdominal ultrasound: COMPARISON: No comparisons FINDINGS: Gallbladder size is normal. No gallstones, wall thickening or pericholecystic fluid. Common bile duct is normal with no common duct stone identified. Liver and spleen are normal size. Liver shows a coarsened, increased hepatic echogenicity is nonspecific but commonly seen with fatty infiltration. No capsule nodularity or focal lesion identifiable. Doppler evaluation shows no portal vein abnormality. The pancreas is grossly normal but partially obscured by bowel. No peripancreatic mass or abnormal fluid collection suspected. No hydronephrosis or suspicious mass in either kidney. Two echogenic foci in the upper pole right kidney approximately 5 mm in size noted along with similar sized echogenic focus in the lower pole left kidney. These appear to be within the parenchyma of the kidney rather than a calyx. Long-term significance is doubtful. These could be benign calcifications of the parenchyma. Angiomyolipomas are possible. Aorta and IVC show no significant finding. No ascites or bulky lymphadenopathy. IMPRESSION: Fatty infiltration of a normal size liver. No focal liver lesions seen. No gallbladder abnormality identified. Pancreas is grossly normal but partially obscured by bowel. Ongoing concerns for pancreatitis or need to delineate severity of pancreatitis could be addressed using CT imaging. No acute renal finding seen. Echogenic foci in each kidney within the parenchyma could be benign calcifications or angiomyelolipomas. Long-term significance is doubtful. These could be further evaluated if CT imaging is performed for pancreatic assessment. Follow up CXR 01/05/2021: COMPARISON: Portable January 02 TECHNIQUE: AP portable chest image was obtained 01/05/2021 2:13 pm . FINDINGS: Lung volumes are low. Interstitial and alveolar opacities are present. Findings consistent with the provided history of COVID-19 pneumonia. Lower lung volume and technical differences three-view differential in appearance. There is probably been a slight progression in the disease with the lower lung volume exaggerating the differential. Heart and vasculature are normal. No measurable pleural effusion and no pneumothorax. No acute bony abnormality seen. No acute aortic findings suspected. IMPRESSION: Stable to slightly worsened COVID-19 pneumonia pattern since January 02. Physical exam: General: Alert, In no apparent distress, Oriented x3 HEENT: Mucous membranes moist Neck: Supple Respiratory: Clear. Currently on 15 L per nasal cannula Cardiovascular: Regular rate/rhythm, Normal S1 S2 Gastrointestinal: Less pain to the epigastric region. No significant abdominal distention. Musculoskeletal: No clubbing, No swelling, No tenderness Integumentary: No rashes Neurological: Normal gait, Normal speech, Normal strength at 5/5 x4 extr, Normal tone, Sensation intact, Cranial nerves 3-12 intact, Normal affect Lymphatics: No axilla or inguinal lymphadenopathy Impression: Dyspnea secondary to bilateral Covid pneumonia with hypoxia Acute pancreatitis Elevated liver function with fatty liver History of rheumatoid arthritis Plan: Dyspnea secondary to bilateral Covid pneumonia with hypoxia: Patient reports improvement. Increase oxygen intake noted at 15 L per nasal cannula. Continue to wean off oxygen to maintain sats above 93%. CRP and ferritin improved. Will decrease IV steroids. Continue with vitamin supplementation patient tolerating diet. Lipase improved. Encourage ambulation. Will provide medication for constipation. Patient on Lovenox for DVT prophylaxis. Continue to monitor CRP, ferritin, lipase and liver function tests. Encourage incentive spirometer, proning, ambulation. Anticipate continued improvement over the next 48 hours. Acute pancreatitis: Lipase improved. Tolerating GI soft. Continue to monitor lab closely. Elevated liver function with fatty liver: Continue to monitor liver function test. History of rheumatoid arthritis: Continue home medications of gabapentin. Pain medication provided. CODE STATUS: Full code DVT prophylaxis: Lovenox Advance care [id number] minutes: Home at discharge Time Spent Managing Pts Care (In Minutes): 55
[2021-01-06 06:32] LABS: Albumin 2.7 g/dL (3.4-5.0); Bilirubin Total 0.9 mg/dL (0.2-1.0); C-Reactive Protein 8.97 mg/L (<3.00); Ferritin 564.5 ng/mL (26-388); Magnesium 2.3 mg/dL (1.8-2.4); Potassium 4.4 mmol/L (3.5-5.1); Protein, Total 6.9 g/dL (6.4-8.2)
[2021-01-06] MEDS: HOME MED 1 EA UNK (Cyanocobalamin (Vitamin B-12) [Vitamin B12] 2,500 MCG Tablet) PO SCH (09:00)
[2021-01-06] MEDS: FOLIC ACID 1 MG TABLET PO SCH (09:37)
[2021-01-06] MEDS: GABAPENTIN 300 MG CAP PO SCH ×3 (09:37→21:16)
[2021-01-06] MEDS: FAMOTIDINE 20 MG TAB PO SCH ×2 (09:37→21:16)
[2021-01-06] MEDS: THIAMINE HCL 100 MG TABLET PO SCH ×2 (09:38→21:16)
[2021-01-06] MEDS: ASCORBIC ACID 500 MG TABLET PO SCH ×3 (09:38→21:16)
[2021-01-06] MEDS: METHYLPREDNISOLONE 125 MG INJ IV SCH (09:38)
[2021-01-06] MEDS: VITAMIN D 1000 UNIT TAB PO SCH (09:39)
[2021-01-06] MEDS: ASPIRIN EC 81 MG TAB PO SCH (09:46)
[2021-01-06] MEDS: METHYLPREDNISOLONE 40 MG INJ IV SCH ×3 (13:36→21:16)
[2021-01-06] MEDS ORDERED: LACTULOSE 20 GM/30 ML UCUP PO PRN (13:43)
[2021-01-06] MEDS: ENOXAPARIN 40 MG/0.4 ML SQ SCH (17:58)
[2021-01-07 06:05] LABS: Absolute Lymphocytes (CBC) 0.5 K/uL (0.7-4.9); Basophils % 0.1 % (0-1.3); Hematocrit 42.7 % (39.6-49.0); Lymphocytes % 11.4 % (15.3-44.8); MPV 7.6 fL (7.6-11.3); RBC Red Blood Cell Count 5.63 M/uL (4.33-5.43)
--- NOTE | 2021-01-07 06:18 | P.PN ---
Subjective Date of Service: 01/07/21 Chief Complaint: COVID-19 pneumonia Subjective: Improving Physical Examination - Vital Signs Temperature: 97.9 F Blood Pressure: 146/75 Pulse: 68 Respirations: 16 Pulse Ox (%): 90 Assessment & Plan Discharge Plan: Home Plan to discharge in: 72 Hours Physician Review Additional Text: COVID: Positive, unvaccinated Initial chest x-ray: COMPARISON: No comparisons FINDINGS: There are a few mild bilateral airspace opacities. The heart size is within normal limits.No acute osseous abnormality. No significant pleural effusions or pneumothorax. IMPRESSION: Mild bilateral airspace disease concerning for pneumonia. Abdominal ultrasound: COMPARISON: No comparisons FINDINGS: Gallbladder size is normal. No gallstones, wall thickening or pericholecystic fluid. Common bile duct is normal with no common duct stone identified. Liver and spleen are normal size. Liver shows a coarsened, increased hepatic echogenicity is nonspecific but commonly seen with fatty infiltration. No capsule nodularity or focal lesion identifiable. Doppler evaluation shows no portal vein abnormality. The pancreas is grossly normal but partially obscured by bowel. No peripancreatic mass or abnormal fluid collection suspected. No hydronephrosis or suspicious mass in either kidney. Two echogenic foci in the upper pole right kidney approximately 5 mm in size noted along with similar sized echogenic focus in the lower pole left kidney. These appear to be within the parenchyma of the kidney rather than a calyx. Long-term significance is doub tful. These could be benign calcifications of the parenchyma. Angiomyolipomas are possible. Aorta and IVC show no significant finding. No ascites or bulky lymphadenopathy. IMPRESSION: Fatty infiltration of a normal size liver. No focal liver lesions seen. No gallbladder abnormality identified. Pancreas is grossly normal but partially obscured by bowel. Ongoing concerns for pancreatitis or need to delineate severity of pancreatitis could be addressed using CT imaging. No acute renal finding seen. Echogenic foci in each kidney within the parenchyma could be benign calcifications or angiomyelolipomas. Long-term significance is doubtful. These could be further evaluated if CT imaging is performed for pancreatic assessment. Follow up CXR 01/05/2021: COMPARISON: Portable January 02 TECHNIQUE: AP portable chest image was obtained 01/05/2021 2:13 pm . FINDINGS: Lung volumes are low. Interstitial and alveolar opacities are present. Findings consistent with the provided history of COVID-19 pneumonia. Lower lung volume and technical differences three-view differential in appearance. There is probably been a slight progression in the disease with the lower lung volume exaggerating the differential. Heart and vasculature are normal. No measurable pleural effusion and no pneumothorax. No acute bony abnormality seen. No acute aortic findings suspected. IMPRESSION: Stable to slightly worsened COVID-19 pneumonia pattern since January 02. Physical exam: General: Alert, In no apparent distress, Oriented x3 HEENT: Mucous membranes moist Neck: Supple Respiratory: Clear. Currently on 15 L per nasal cannula Cardiovascular: Regular rate/rhythm, Normal S1 S2 Gastrointestinal: Less pain to the epigastric region. No significant abdominal distention. Musculoskeletal: No clubbing, No swelling, No tenderness Integumentary: No rashes Neurological: Normal gait, Normal speech, Normal strength at 5/5 x4 extr, Normal tone, Sensation intact, Cranial nerves 3-12 intact, Normal affect Lymphatics: No axilla or inguinal lymphadenopathy Impression: Dyspnea secondary to bilateral Covid pneumonia with hypoxia Acute pancreatitis Elevated liver function with fatty liver History of rheumatoid arthritis Plan: Dyspnea secondary to bilateral Covid pneumonia with hypoxia: Patient reports improvement. Stable on 15 L per nasal cannula. Continue to wean off oxygen to maintain sats above 93%. CRP and ferritin improved. Will decrease IV steroids. Continue with vitamin supplementation patient tolerating diet. Lipase improved. Encourage ambulation. Will provide medication for constipation. Patient on Lovenox for DVT prophylaxis. Continue to monitor CRP, ferritin, lipase and liver function tests. Encourage incentive spirometer, proning, ambulation. Will order PT to ambulate. Anticipate continued improvement over the next 48 hours. Acute pancreatitis: Lipase improved. Tolerating GI soft. Continue to monitor lab closely. Elevated liver function with fatty liver: Continue to monitor liver function test. History of rheumatoid arthritis: Continue home medications of gabapentin. Pain medication provided. CODE STATUS: Full code DVT prophylaxis: Lovenox Advance care [id number] minutes: Home at discharge Time Spent Managing Pts Care (In Minutes): 55
[2021-01-07 06:28] LABS: ALT/SGPT 148 U/L (12-78); AST/SGOT 116 U/L (15-37); Albumin 2.8 g/dL (3.4-5.0); Alkaline Phosphatase 83 U/L (45-117); BUN Blood Urea Nitrogen 19 mg/dL (7-18); Bicarbonate 26 mmol/L (21-32); Bilirubin Total 1.1 mg/dL (0.2-1.0); Ferritin 690.2 ng/mL (26-388); Glucose Level 131 mg/dL (74-106); Lipase 787 U/L (73-393); Magnesium 2.4 mg/dL (1.8-2.4); Protein, Total 7.1 g/dL (6.4-8.2); Sodium Level 141 mmol/L (136-145)
[2021-01-07] MEDS: GABAPENTIN 300 MG CAP PO SCH ×3 (09:00→21:36)
[2021-01-07] MEDS: ASCORBIC ACID 500 MG TABLET PO SCH ×3 (09:00→21:36)
[2021-01-07] MEDS: FOLIC ACID 1 MG TABLET PO SCH (09:00)
[2021-01-07] MEDS: THIAMINE HCL 100 MG TABLET PO SCH ×2 (09:00→21:36)
[2021-01-07] MEDS: METHYLPREDNISOLONE 40 MG INJ IV SCH ×3 (09:00→21:36)
[2021-01-07] MEDS: HOME MED 1 EA UNK (Cyanocobalamin (Vitamin B-12) [Vitamin B12] 2,500 MCG Tablet) PO SCH (09:00)
[2021-01-07] MEDS: ASPIRIN EC 81 MG TAB PO SCH (09:00)
[2021-01-07] MEDS: VITAMIN D 1000 UNIT TAB PO SCH (09:00)
[2021-01-07] MEDS: FAMOTIDINE 20 MG TAB PO SCH ×2 (09:00→21:36)
[2021-01-07] MEDS: ENOXAPARIN 40 MG/0.4 ML SQ SCH (16:57)
[2021-01-07] MEDS ORDERED: SOD CHLORIDE 0.65% NASAL SPRAY NAS SCH (21:00)
[2021-01-07] MEDS: FLUTICASONE 50MCG NASAL SPRAY NAS SCH (21:35)
[2021-01-08 06:17] LABS: Absolute Lymphocytes (CBC) 0.2 K/uL (0.7-4.9); Basophils % 0.2 % (0-1.3); Lymphocytes % 7.5 % (15.3-44.8); MPV 7.5 fL (7.6-11.3); RBC Red Blood Cell Count 5.54 M/uL (4.33-5.43)
--- NOTE | 2021-01-08 06:18 | P.PN ---
Subjective Date of Service: 01/08/21 Chief Complaint: COVID-19 pneumonia Subjective: Improving Physical Examination - Vital Signs Temperature: 97.7 F Blood Pressure: 144/63 Pulse: 64 Respirations: 22 Pulse Ox (%): 93 - Studies Microbiology Data (last 24 hrs): 01/02/21 13:50 Blood - Blood Aerobic Blood Culture - Final No growth in 5 days. 01/02/21 13:50 Blood - Blood Anaerobic Blood Culture - Final No growth in 5 days. 01/02/21 13:39 Blood - Blood Aerobic Blood Culture - Final No growth in 5 days. 01/02/21 13:39 Blood - Blood Anaerobic Blood Culture - Final No growth in 5 days. Assessment & Plan Discharge Plan: Home Plan to discharge in: Greater than 2 days Physician Review Additional Text: COVID: Positive, unvaccinated Initial chest x-ray: COMPARISON: No comparisons FINDINGS: There are a few mild bilateral airspace opacities. The heart size is within normal limits.No acute osseous abnormality. No significant pleural effusions or pneumothorax. IMPRESSION: Mild bilateral airspace disease concerning for pneumonia. Abdominal ultrasound: COMPARISON: No comparisons FINDINGS: Gallbladder size is normal. No gallstones, wall thickening or pericholecystic fluid. Common bile duct is normal with no common duct stone identified. Liver and spleen are normal size. Liver shows a coarsened, increased hepatic echogenicity is nonspecific but commonly seen with fatty infiltration. No capsule nodularity or focal lesion identifiable. Doppler evaluation shows no portal vein abnormality. The pancreas is grossly normal but partially obscured by bowel. No peripancreatic mass or abnormal fluid collection suspected. No hydronephrosis or suspicious mass in either kidney. Two echogenic foci in the upper pole right kidney approximately 5 mm in size noted along with similar sized echogenic focus in the lower pole left kidney. These appear to be within the parenchyma of the kidney rather than a calyx. Long-term significance is doubtful. These could be benign calcifications of the parenchyma. Angiomyolipomas are possible. Aorta and IVC show no significant finding. No ascites or bulky lymphadenopathy. IMPRESSION: Fatty infiltration of a normal size liver. No focal liver lesions seen. No gallbladder abnormality identified. Pancreas is grossly normal but partially obscured by bowel. Ongoing concerns for pancreatitis or need to delineate severity of pancreatitis could be addressed using CT imaging. No acute renal finding seen. Echogenic foci in each kidney within the parenchyma could be benign calcifications or angiomyelolipomas. Long-term significance is doubtful. These could be further evaluated if CT imaging is performed for pancreatic assessment. Follow up CXR 01/05/2021: COMPARISON: Portable January 02 TECHNIQUE: AP portable chest image was obtained 01/05/2021 2:13 pm . FINDINGS: Lung volumes are low. Interstitial and alveolar opacities are present. Findings consistent with the provided history of COVID-19 pneumonia. Lower lung volume and technical differences three-view differential in appearance. There is probably been a slight progression in the disease with the lower lung volume exaggerating the differential. Heart and vasculature are normal. No measurable pleural effusion and no pneumothorax. No acute bony abnormality seen. No acute aortic findings suspected. IMPRESSION: Stable to slightly worsened COVID-19 pneumonia pattern since January 02. Physical exam: General: Alert, In no apparent distress, Oriented x3 HEENT: Mucous membranes moist Neck: Supple Respiratory: Clear. Down to 10 L per nasal cannula Cardiovascular: Regular rate/rhythm, Normal S1 S2 Gastrointestinal: Less pain to the epigastric region. No significant abdominal distention. Musculoskeletal: No clubbing, No swelling, No tenderness Integumentary: No rashes Neurological: Normal gait, Normal speech, Normal strength at 5/5 x4 extr, Normal tone, Sensation intact, Cranial nerves 3-12 intact, Normal affect Lymphatics: No axilla or inguinal lymphadenopathy Impression: Dyspnea secondary to bilateral Covid pneumonia with hypoxia Acute pancreatitis Elevated liver function with fatty liver History of rheumatoid arthritis Plan: Dyspnea secondary to bilateral Covid pneumonia with hypoxia: Patient reports improvement. Down to 10 L per nasal cannula. Continue to wean off oxygen to maintain sats above 93%. CRP and ferritin improved. Continue IV steroids. Continue with vitamin supplementation patient tolerating diet. Lipase improved. Encourage ambulation. Will provide medication for constipation. Pulmonology added Diflucan. Patient on Lovenox for DVT prophylaxis. Continue to monitor CRP, ferritin, lipase and liver function tests. Encourage incentive spirometer, proning, ambulation. Will order PT to ambulate. Anticipate continued improvement over the next 48 hours. Acute pancreatitis: Lipase improved. Tolerating GI soft. Continue to monitor lab closely. Elevated liver function with fatty liver: Continue to monitor liver function test. History of rheumatoid arthritis: Continue home medications of gabapentin. Pain medication provided. CODE STATUS: Full code DVT prophylaxis: Lovenox Advance care [email or web address] minutes: Home at discharge Time Spent Managing Pts Care (In Minutes): 55
--- NOTE | 2021-01-08 07:24 | RAD REPORT ---
EXAM DESCRIPTION: Nan Single View01/08/2021 7:09 am CLINICAL HISTORY: Shortness breath COMPARISON: January 05 2021 FINDINGS: No significant change diffuse bilateral opacities. Heart is normal size IMPRESSION: No significant change the bilateral pulmonary opacities probably pneumonia
[2021-01-08 07:36] LABS: ALT/SGPT 155 U/L (12-78); AST/SGOT 86 U/L (15-37); Albumin 2.7 g/dL (3.4-5.0); Alkaline Phosphatase 81 U/L (45-117); BUN Blood Urea Nitrogen 22 mg/dL (7-18); Bicarbonate 27 mmol/L (21-32); Bilirubin Total 1.1 mg/dL (0.2-1.0); C-Reactive Protein 6.63 mg/L (<3.00); Ferritin 610.6 ng/mL (26-388); Glucose Level 123 mg/dL (74-106); Lipase 902 U/L (73-393); Magnesium 2.3 mg/dL (1.8-2.4); Potassium 4.4 mmol/L (3.5-5.1); Protein, Total 6.9 g/dL (6.4-8.2); Sodium Level 140 mmol/L (136-145)
[2021-01-08] MEDS: ASCORBIC ACID 500 MG TABLET PO SCH ×3 (08:39→20:29)
[2021-01-08] MEDS: FOLIC ACID 1 MG TABLET PO SCH (08:39)
[2021-01-08] MEDS: VITAMIN D 1000 UNIT TAB PO SCH (08:39)
[2021-01-08] MEDS: FAMOTIDINE 20 MG TAB PO SCH ×2 (08:39→20:29)
[2021-01-08] MEDS: ASPIRIN EC 81 MG TAB PO SCH (08:39)
[2021-01-08] MEDS: METHYLPREDNISOLONE 40 MG INJ IV SCH ×3 (08:40→20:30)
[2021-01-08] MEDS: THIAMINE HCL 100 MG TABLET PO SCH ×2 (08:40→20:30)
[2021-01-08] MEDS: GABAPENTIN 300 MG CAP PO SCH ×3 (08:40→20:29)
[2021-01-08] MEDS: FLUTICASONE 50MCG NASAL SPRAY NAS SCH ×2 (08:40→20:50)
[2021-01-08] MEDS: HOME MED 1 EA UNK (Cyanocobalamin (Vitamin B-12) [Vitamin B12] 2,500 MCG Tablet) PO SCH (08:41)
--- NOTE | 2021-01-08 14:34 | P.PN ---
Subjective Date of Service: 01/08/21 Chief Complaint: COVID-19 pneumonia Subjective: Improving (Doign better) Review of Systems Respiratory: Shortness of Breath Physical Examination - Vital Signs Temperature: 99.1 F Blood Pressure: 138/77 Pulse: 84 Respirations: 26 Pulse Ox (%): 88 - Physical Exam General: Alert, In no apparent distress, Oriented x3, Cooperative - Studies Microbiology Data (last 24 hrs): 01/02/21 13:50 Blood - Blood Aerobic Blood Culture - Final No growth in 5 days. 01/02/21 13:50 Blood - Blood Anaerobic Blood Culture - Final No growth in 5 days. 01/02/21 13:39 Blood - Blood Aerobic Blood Culture - Final No growth in 5 days. 01/02/21 13:39 Blood - Blood Anaerobic Blood Culture - Final No growth in 5 days. Assessment & Plan - Problems (Diagnosis) (1) Pneumonia due to COVID-19 virus Current Visit: Yes Status: Acute Plan: Improving O2 requirements decling/ Add Po Diflucan/ labs reviewed
[2021-01-08] MEDS: FLUCONAZOLE 100 MG TAB PO SCH (16:00)
[2021-01-08] MEDS: ENOXAPARIN 40 MG/0.4 ML SQ SCH (16:00)
[2021-01-08] MEDS: HYDROCODONE/APAP 7.5/325 MG TAB PO PRN (16:19)
[2021-01-09 05:40] LABS: Absolute Lymphocytes (CBC) 0.3 K/uL (0.7-4.9); Basophils % 0.5 % (0-1.3); Hematocrit 41.6 % (39.6-49.0); Lymphocytes % 7.4 % (15.3-44.8); MPV 7.6 fL (7.6-11.3); RBC Red Blood Cell Count 5.44 M/uL (4.33-5.43)
[2021-01-09 06:04] LABS: ALT/SGPT 138 U/L (12-78); AST/SGOT 54 U/L (15-37); Albumin 2.8 g/dL (3.4-5.0); Alkaline Phosphatase 82 U/L (45-117); BUN Blood Urea Nitrogen 20 mg/dL (7-18); Bicarbonate 25 mmol/L (21-32); C-Reactive Protein 7.74 mg/L (<3.00); Glucose Level 136 mg/dL (74-106); Lipase 734 U/L (73-393); Potassium 4.3 mmol/L (3.5-5.1); Protein, Total 7.1 g/dL (6.4-8.2); Sodium Level 138 mmol/L (136-145)
--- NOTE | 2021-01-09 06:25 | P.PN ---
Subjective Date of Service: 01/09/21 Chief Complaint: COVID-19 pneumonia Subjective: Improving (Currently on 10 L per nasal cannula) Physical Examination - Vital Signs Temperature: 97.7 F Blood Pressure: 154/89 Pulse: 68 Respirations: 20 Pulse Ox (%): 86 Assessment & Plan Discharge Plan: Home Plan to discharge in: Greater than 2 days Physician Review Additional Text: COVID: Positive, unvaccinated Initial chest x-ray: COMPARISON: No comparisons FINDINGS: There are a few mild bilateral airspace opacities. The heart size is within normal limits.No acute osseous abnormality. No significant pleural effusions or pneumothorax. IMPRESSION: Mild bilateral airspace disease concerning for pneumonia. Abdominal ultrasound: COMPARISON: No comparisons FINDINGS: Gallbladder size is normal. No gallstones, wall thickening or pericholecystic fluid. Common bile duct is normal with no common duct stone identified. Liver and spleen are normal size. Liver shows a coarsened, increased hepatic echogenicity is nonspecific but commonly seen with fatty infiltration. No capsule nodularity or focal lesion identifiable. Doppler evaluation shows no portal vein abnormality. The pancreas is grossly normal but partially obscured by bowel. No peripancreatic mass or abnormal fluid collection suspected. No hydronephrosis or suspicious mass in either kidney. Two echogenic foci in the upper pole right kidney approximately 5 mm in size noted along with similar sized echogenic focus in the lower pole left kidney. These appear to be within the parenchyma of the kidney rather than a calyx. Long-term significance is doubtful. These could be benign calcifications of the parenchyma. Angiomyolipomas are possible. Aorta and IVC show no significant finding. No ascites or bulky lymphadenopathy. IMPRESSION: Fatty infiltration of a normal size liver. No focal liver lesions seen. No gallbladder abnormality identified. Pancreas is grossly normal but partially obscured by bowel. Ongoing concerns for pancreatitis or need to delineate severity of pancreatitis could be addressed using CT imaging. No acute renal finding seen. Echogenic foci in each kidney within the parenchyma could be benign calcifications or angiomyelolipomas. Long-term significance is doubtful. These could be further evaluated if CT imaging is performed for pancreatic assessment. Follow up CXR 01/08/2021: COMPARISON: January 05 2021 FINDINGS: No significant change diffuse bilateral opacities. Heart is normal size IMPRESSION: No significant change the bilateral pulmonary opacities probably pneumonia Physical exam: General: Alert, In no apparent distress, Oriented x3 HEENT: Mucous membranes moist Neck: Supple Respiratory: Clear. Down to 10 L per nasal cannula Cardiovascular: Regular rate/rhythm, Normal S1 S2 Gastrointestinal: Less pain to the epigastric region. No significant abdominal distention. Musculoskeletal: No clubbing, No swelling, No tenderness Integumentary: No rashes Neurological: Normal gait, Normal speech, Normal strength at 5/5 x4 extr, Normal tone, Sensation intact, Cranial nerves 3-12 intact, Normal affect Lymphatics: No axilla or inguinal lymphadenopathy Impression: Dyspnea secondary to bilateral Covid pneumonia with hypoxia Acute pancreatitis Elevated liver function with fatty liver History of rheumatoid arthritis Plan: Dyspnea secondary to bilateral Covid pneumonia with hypoxia: Patient continues to improve. Stable on 10 L per nasal cannula. Continue to wean off oxygen to maintain sats above 93%. CRP and ferritin improved. Continue IV steroids. Continue with vitamin supplementation patient tolerating diet. Lipase improved. Encourage ambulation. Will provide medication for constipation. Pulmonology added Diflucan. Patient on Lovenox for DVT prophylaxis. Continue to monitor CRP, ferritin, lipase and liver function tests. Encourage incentive spirometer, proning, ambulation. Continue with physical therapy. Anticipate continued improvement. I will turn the service over to the hospitalist team tomorrow. I will go plan of care with him. Acute pancreatitis: Lipase improved. Tolerating GI soft. Continue to monitor lab closely. Elevated liver function with fatty liver: Continue to monitor liver function test. History of rheumatoid arthritis: Continue home medications of gabapentin. Pain medication provided. CODE STATUS: Full code DVT prophylaxis: Lovenox Advance care [id number] minutes: Home at discharge Time Spent Managing Pts Care (In Minutes): 55
[2021-01-09] MEDS: HOME MED 1 EA UNK (Cyanocobalamin (Vitamin B-12) [Vitamin B12] 2,500 MCG Tablet) PO SCH (07:36)
[2021-01-09] MEDS: FOLIC ACID 1 MG TABLET PO SCH (07:37)
[2021-01-09] MEDS: GABAPENTIN 300 MG CAP PO SCH ×3 (07:37→20:07)
[2021-01-09] MEDS: VITAMIN D 1000 UNIT TAB PO SCH (07:37)
[2021-01-09] MEDS: FAMOTIDINE 20 MG TAB PO SCH ×2 (07:37→20:07)
[2021-01-09] MEDS: FLUCONAZOLE 100 MG TAB PO SCH (07:37)
[2021-01-09] MEDS: ASPIRIN EC 81 MG TAB PO SCH (07:37)
[2021-01-09] MEDS: ASCORBIC ACID 500 MG TABLET PO SCH ×3 (07:38→20:07)
[2021-01-09] MEDS: METHYLPREDNISOLONE 40 MG INJ IV SCH ×3 (07:38→20:07)
[2021-01-09] MEDS: THIAMINE HCL 100 MG TABLET PO SCH ×2 (07:38→20:07)
[2021-01-09] MEDS: FLUTICASONE 50MCG NASAL SPRAY NAS SCH ×2 (07:38→20:07)
[2021-01-09] MEDS: HYDROCODONE/APAP 7.5/325 MG TAB PO PRN ×2 (07:44→20:12)
[2021-01-09] MEDS: ENOXAPARIN 40 MG/0.4 ML SQ SCH (16:21)
[2021-01-09 20:39] VITALS: BMI 27.5
[2021-01-10 05:56] LABS: Absolute Lymphocytes (CBC) 0.2 K/uL (0.7-4.9); Basophils % 0.5 % (0-1.3); Hematocrit 39.7 % (39.6-49.0); Lymphocytes % 6.1 % (15.3-44.8); MPV 7.6 fL (7.6-11.3); RBC Red Blood Cell Count 5.25 M/uL (4.33-5.43)
[2021-01-10] MEDS: FAMOTIDINE 20 MG TAB PO SCH ×2 (07:56→19:58)
[2021-01-10] MEDS: THIAMINE HCL 100 MG TABLET PO SCH ×2 (07:56→19:58)
[2021-01-10] MEDS: HYDROCODONE/APAP 7.5/325 MG TAB PO PRN ×2 (07:56→19:57)
[2021-01-10] MEDS: METHYLPREDNISOLONE 40 MG INJ IV SCH ×3 (07:56→19:58)
[2021-01-10] MEDS: FLUCONAZOLE 100 MG TAB PO SCH (07:56)
[2021-01-10] MEDS: GABAPENTIN 300 MG CAP PO SCH ×3 (07:57→19:58)
[2021-01-10] MEDS: VITAMIN D 1000 UNIT TAB PO SCH (07:57)
[2021-01-10] MEDS: ASPIRIN EC 81 MG TAB PO SCH (07:57)
[2021-01-10] MEDS: FOLIC ACID 1 MG TABLET PO SCH (07:57)
[2021-01-10] MEDS: ASCORBIC ACID 500 MG TABLET PO SCH ×3 (07:57→19:58)
[2021-01-10] MEDS: FLUTICASONE 50MCG NASAL SPRAY NAS SCH ×2 (09:00→21:00)
[2021-01-10] MEDS: HOME MED 1 EA UNK (Cyanocobalamin (Vitamin B-12) [Vitamin B12] 2,500 MCG Tablet) PO SCH (09:00)
[2021-01-10 09:07] LABS: ALT/SGPT 122 U/L (12-78); AST/SGOT 46 U/L (15-37); Albumin 2.7 g/dL (3.4-5.0); Alkaline Phosphatase 77 U/L (45-117); BUN Blood Urea Nitrogen 17 mg/dL (7-18); Bicarbonate 25 mmol/L (21-32); Bilirubin Total 1.1 mg/dL (0.2-1.0); C-Reactive Protein 4.21 mg/L (<3.00); Ferritin 376.8 ng/mL (26-388); Glucose Level 139 mg/dL (74-106); Lipase 590 U/L (73-393); Magnesium 2.1 mg/dL (1.8-2.4); Potassium 4.3 mmol/L (3.5-5.1); Protein, Total 6.8 g/dL (6.4-8.2); Sodium Level 137 mmol/L (136-145)
[2021-01-10 12:07] LABS: White Blood Cell Scan OK (OK)
[2021-01-10 12:08] LABS: Blood Morphology Comment NOT SEEN (NOT SEEN); Platelet Estimate ADEQ
[2021-01-10] MEDS: ENOXAPARIN 40 MG/0.4 ML SQ SCH (16:32)
[2021-01-11] MEDS: HYDROCODONE/APAP 7.5/325 MG TAB PO PRN ×2 (07:39→16:55)
[2021-01-11] MEDS: ASPIRIN EC 81 MG TAB PO SCH (07:39)
[2021-01-11] MEDS: GABAPENTIN 300 MG CAP PO SCH ×3 (07:40→20:44)
[2021-01-11] MEDS: ASCORBIC ACID 500 MG TABLET PO SCH ×3 (07:40→20:44)
[2021-01-11] MEDS: FOLIC ACID 1 MG TABLET PO SCH (07:40)
[2021-01-11] MEDS: FAMOTIDINE 20 MG TAB PO SCH ×2 (07:40→20:44)
[2021-01-11] MEDS: HOME MED 1 EA UNK (Cyanocobalamin (Vitamin B-12) [Vitamin B12] 2,500 MCG Tablet) PO SCH (07:40)
[2021-01-11] MEDS: FLUCONAZOLE 100 MG TAB PO SCH (07:40)
[2021-01-11] MEDS: VITAMIN D 1000 UNIT TAB PO SCH (07:40)
[2021-01-11] MEDS: THIAMINE HCL 100 MG TABLET PO SCH ×2 (07:40→20:44)
[2021-01-11] MEDS: FLUTICASONE 50MCG NASAL SPRAY NAS SCH ×2 (07:41→21:57)
[2021-01-11] MEDS: METHYLPREDNISOLONE 40 MG INJ IV SCH ×3 (07:42→20:44)
[2021-01-11] MEDS: ENOXAPARIN 40 MG/0.4 ML SQ SCH (16:55)
[2021-01-11 23:32] VITALS: O2SAT 90
--- NOTE | 2021-01-12 07:38 | P.PN ---
Subjective Date of Service: 01/10/21 Patient is feeling much better. Patient clinical symptoms are continuing to improve. Patient is only on 4-5 L of oxygen. Patient is clinically improving. Anticipate discharge over the next 48-72 hr Review of Systems 10-point ROS is otherwise unremarkable Physical Examination - Vital Signs Temperature: 97.9 F Blood Pressure: 134/65 Pulse: 69 Respirations: 18 Pulse Ox (%): 90 - Physical Exam General: Alert, In no apparent distress, Oriented x3 Respiratory: Diminished, Other (But clear bilaterally) Cardiovascular: Regular rate/rhythm, Normal S1 S2, No murmurs Gastrointestinal: Normal bowel sounds, Soft and benign, Non-distended, No tenderness Musculoskeletal: No clubbing, No swelling, No tenderness Neurological: Sensation intact, Cranial nerves 3-12 intact Lymphatics: No axilla or inguinal lymphadenopathy - Studies Medications List Reviewed: Yes Assessment & Plan - Problems (Diagnosis) (1) Pneumonia due to COVID-19 virus Current Visit: Yes Status: Acute (2) Hypoxemia Current Visit: Yes Status: Acute (3) Pancreatitis Current Visit: Yes Status: Acute (4) History of rheumatoid arthritis Current Visit: Yes Status: Acute - Plan Continue with plan of care as mentioned below: 1. Continue with IV steroids 2. Monitor inflammatory markers 3. Repeat chest x-ray 4. O2 per protocol 5. Pulmonary consultation if symptoms worsen 6. Continue with albuterol inhaler therapy; also supportive care 7. Monitor LFTs and lipase along with abdominal ultrasound 8. GI and DVT prophylaxis Discharge Plan: Home Plan to discharge in: Greater than 2 days - Advance Directives Does patient have a Living Will: No Does patient have a Durable POA for Healthcare: No - Code Status/Comfort Care Code Status: Full Code Critical Care: No Time Spent Managing PTS Care (In Minutes): 48
[2021-01-12] MEDS: HOME MED 1 EA UNK (Cyanocobalamin (Vitamin B-12) [Vitamin B12] 2,500 MCG Tablet) PO SCH (07:39)
[2021-01-12] MEDS: ASCORBIC ACID 500 MG TABLET PO SCH ×2 (07:41→13:08)
[2021-01-12] MEDS: FAMOTIDINE 20 MG TAB PO SCH (07:41)
[2021-01-12] MEDS: ASPIRIN EC 81 MG TAB PO SCH (07:41)
[2021-01-12] MEDS: VITAMIN D 1000 UNIT TAB PO SCH (07:41)
[2021-01-12] MEDS: THIAMINE HCL 100 MG TABLET PO SCH (07:41)
[2021-01-12] MEDS: METHYLPREDNISOLONE 40 MG INJ IV SCH ×2 (07:42→13:08)
[2021-01-12] MEDS: FLUCONAZOLE 100 MG TAB PO SCH (07:42)
[2021-01-12] MEDS: HYDROCODONE/APAP 7.5/325 MG TAB PO PRN (07:42)
[2021-01-12] MEDS: FOLIC ACID 1 MG TABLET PO SCH (07:42)
[2021-01-12] MEDS: GABAPENTIN 300 MG CAP PO SCH ×2 (07:42→13:08)
[2021-01-12] MEDS: FLUTICASONE 50MCG NASAL SPRAY NAS SCH (07:43)
--- NOTE | 2021-01-12 08:05 | P.PN ---
Date of Service: 01/11/21 Subjective Patient continues to do well. Will arrange for home oxygen and anticipate discharge over the next 24-48 hr. Review of Systems 10-point ROS is otherwise unremarkable Physical Examination - Vital Signs Reviewed - Physical Exam General: Alert, In no apparent distress, Oriented x3 Respiratory: Diminished, Other (But clear bilaterally) Cardiovascular: Regular rate/rhythm, Normal S1 S2, No murmurs Gastrointestinal: Normal bowel sounds, Soft and benign, Non-distended, No tenderness Musculoskeletal: No clubbing, No swelling, No tenderness Neurological: Sensation intact, Cranial nerves 3-12 intact Lymphatics: No axilla or inguinal lymphadenopathy Assessment & Plan - Problems (Diagnosis) (1) Pneumonia due to COVID-19 virus Current Visit: Yes Status: Acute (2) Hypoxemia Current Visit: Yes Status: Acute (3) Pancreatitis Current Visit: Yes Status: Acute (4) History of rheumatoid arthritis Current Visit: Yes Status: Acute - Plan Continue with plan of care as mentioned below: 1. Continue with IV steroids 2. Monitor inflammatory markers 3. Repeat chest x-ray 4. O2 per protocol 5. Pulmonary consultation if symptoms worsen 6. Continue with albuterol inhaler therapy; also supportive care 7. Monitor LFTs and lipase along with abdominal ultrasound; lipase is normalizing and abdominal ultrasound was negative. 8. GI and DVT prophylaxis
--- NOTE | 2021-01-12 08:51 | P.PN ---
Date of Service: 01/12/21 Subjective Review of Systems 10-point ROS is otherwise unremarkable Physical Examination - Vital Signs Reviewed - Physical Exam General: Alert, In no apparent distress, Oriented x3 Respiratory: Diminished, Other (But clear bilaterally) Cardiovascular: Regular rate/rhythm, Normal S1 S2, No murmurs Gastrointestinal: Normal bowel sounds, Soft and benign, Non-distended, No tenderness Musculoskeletal: No clubbing, No swelling, No tenderness Assessment & Plan - Problems (Diagnosis) (1) Pneumonia due to COVID-19 virus Current Visit: Yes Status: Acute (2) Hypoxemia Current Visit: Yes Status: Acute (3) Pancreatitis Current Visit: Yes Status: Acute (4) History of rheumatoid arthritis Current Visit: Yes Status: Acute - Plan Continue with plan of care as mentioned below: 1. Continue with IV steroids 2. Monitor inflammatory markers 3. Repeat chest x-ray 4. O2 per protocol 5. Pulmonary consultation if symptoms worsen 6. Continue with albuterol inhaler therapy; also supportive care 7. Tolerating diet and abdominal symptoms are resolved 8. GI and DVT prophylaxis
[2021-01-12 11:38] LABS: Absolute Lymphocytes (CBC) 0.2 K/uL (0.7-4.9); Hematocrit 44.7 % (39.6-49.0); Lymphocytes % 2.3 % (15.3-44.8); MPV 7.7 fL (7.6-11.3)
[2021-01-12 11:40] LABS: ALT/SGPT 146 U/L (12-78); AST/SGOT 55 U/L (15-37); Albumin 2.9 g/dL (3.4-5.0); Alkaline Phosphatase 91 U/L (45-117); BUN Blood Urea Nitrogen 19 mg/dL (7-18); Bicarbonate 28 mmol/L (21-32); Bilirubin Total 1.1 mg/dL (0.2-1.0); Ferritin 340.9 ng/mL (26-388); Glucose Level 230 mg/dL (74-106); Lipase 540 U/L (73-393); Potassium 4.5 mmol/L (3.5-5.1); Protein, Total 7.4 g/dL (6.4-8.2); Sodium Level 137 mmol/L (136-145)
[2021-01-12 11:44] LABS: C-Reactive Protein < 2.90 mg/L (<3.00)
[2021-01-12] MEDS: ENOXAPARIN 40 MG/0.4 ML SQ SCH (15:41)
[2021-01-12 16:52] VITALS: BP 165/81; TEMP 98.8
--- NOTE | 2021-01-19 02:41 | P.DS ---
Discharge Date: 01/12/21 Disposition: ROUTINE DISCHARGE Discharge Condition: GOOD Reason for Admission: COVID-19 pneumonia - Problems (1) Pneumonia due to COVID-19 virus Status: Acute (2) Hypoxemia Status: Acute (3) Pancreatitis Status: Acute (4) History of rheumatoid arthritis Status: Acute Brief History of Present Illness: Patient is a 61-year-old gentleman who came to the hospital with COVID-19 pneumonia. Patient was in respiratory distress. Patient was satting 70%. Patient was placed on 8 L oxygen and his saturations came up into the low 90s and high 80 percentile. Patient be admitted to the hospital for further evaluation. Patient was tested positive on Tuesday. Patient has history of rheumatoid arthritis. Patient is on immunosuppressants. Patient will be started on IV steroids. Will monitor patient's labs closely. Patient's lipase was also elevated. There is no known history of alcohol abuse. Repeat lipase level and abdominal ultrasound. If symptoms are not improving any starts having abdominal pain will do a dedicated CT scan. Patient be admitted to the hospital for further evaluation. Hospital Course: Patient was doing well and he participated with physical therapy. Patient walked into the hallway. He is clinically doing well and at this time will discharge with home oxygen. Patient continue tapering dose of steroids along with pain medication and inhaler therapy. Continue with cough medication as n eeded. Vital Signs/Physical Exam: Temp Pulse Resp BP Pulse Ox 98.8 F 88 24 H 165/81 H 89 L 01/12/21 16:00 01/12/21 16:00 01/12/21 16:00 01/12/21 16:00 01/12/21 16:00 General: Alert, In no apparent distress, Oriented x3 Laboratory Data at Discharge: WBC 9.80 K/uL (4.3-10.9) D 01/12/21 11:03 Hgb 14.6 g/dL (13.6-17.9) 01/12/21 11:03 Hct 44.7 % (39.6-49.0) 01/12/21 11:03 Plt Count 564 K/uL (152-406) H D 01/12/21 11:03 PT 12.4 SECONDS (9.5-12.5) 01/02/21 14:30 INR 1.08 01/02/21 14:30 APTT 30.8 SECONDS (24.3-36.9) 01/02/21 14:30 Sodium 137 mmol/L (136-145) 01/12/21 11:03 Potassium 4.5 mmol/L (3.5-5.1) 01/12/21 11:03 BUN 19 mg/dL (7-18) H 01/12/21 11:03 Creatinine 0.90 mg/dL (0.55-1.3) 01/12/21 11:03 Glucose 230 mg/dL (74-106) H 01/12/21 11:03 Magnesium 2.1 mg/dL (1.8-2.4) 01/10/21 05:12 Total Bilirubin 1.1 mg/dL (0.2-1.0) H 01/12/21 11:03 AST 55 U/L (15-37) H 01/12/21 11:03 ALT 146 U/L (12-78) H 01/12/21 11:03 Alkaline Phosphatase 91 U/L (45-117) 01/12/21 11:03 Triglycerides 174 mg/dL (<150) H 01/03/21 04:56 Cholesterol 120 mg/dL (<200) 01/03/21 04:56 HDL Cholesterol 24 mg/dL (40-60) L 01/03/21 04:56 Cholesterol/HDL Ratio 5.00 01/03/21 04:56 Lipase 540 U/L (73-393) H 01/12/21 11:03 Home Medications: Ascorbic Acid [Vitamin C*] 1 tab PO DAILY 01/04/21 Celecoxib [Celebrex*] 100 mg PO BID 01/04/21 Cholecalciferol (Vitamin D3) [Vitamin D3] 1,000 unit PO DAILY 01/04/21 Cyanocobalamin (Vitamin B-12) [Vitamin B12] 2,500 mcg PO DAILY 01/04/21 Folic Acid 1 mg PO DAILY 01/04/21 Gabapentin 300 mg PO TID 01/04/21 Hydrocodone Bit/Acetaminophen [Hydrocodon-Acetaminophn 10-325] 1 tab PO TID 01/04/21 Multivit-Min/FA/Lycopen/Lutein [Centravites 50 Plus Tablet] 1 tab PO DAILY 01/04/21 Secukinumab [Cosentyx Pen] 300 mg SQ SEECOM 01/04/21 Valsartan [Diovan*] 160 mg PO DAILY 01/04/21 Zinc Sulfate [Zinc Sulfate*] 1 tab PO DAILY 01/04/21 Albuterol Inhaler [Ventolin Inhaler*] 2 puff IH Q6H PRN #1 hfa.aer.ad 01/12/21 Benzonatate [Tessalon Perle] 200 mg PO TID PRN #30 cap 01/12/21 Budesonide/Formoterol Fumarate [Symbicort 160-4.5 Mcg Inhaler] 2 puff IH BID #1 hfa.aer.ad 01/12/21 predniSONE [Prednisone*] 20 mg PO BID #26 tab 01/12/21 New Medications: predniSONE [Prednisone*] 20 mg PO BID #26 tab Budesonide/Formoterol Fumarate [Symbicort 160-4.5 Mcg Inhaler] 2 puff IH BID #1 hfa.aer.ad Benzonatate [Tessalon Perle] 200 mg PO TID PRN #30 cap PRN Reason: Cough Albuterol Inhaler [Ventolin Inhaler*] 2 puff IH Q6H PRN #1 hfa.aer.ad PRN Reason: Shortness Of Breath Physician Discharge Instructions: OK TO DC IV AND DC HOME FOLLOW-UP WITH PRIMARY CARE PROVIDER IN 1-2 WEEKS Return to the emergency room if symptoms worsen CALL or TEXT DR. NOVAK AT [phone] IF ANY QUESTIONS REGARDING HOSPITAL STAY. PLEASE CALL THE FLOOR AT [phone] IF ANY MEDICATION OR NURSING QUESTIONS. Diet: AHA Activity: Fall precautions Followup: Ehsan Galvan MD [ACTIVE - CAN ADMIT] - 1 Week (Call for appointment.) BHAVESH OSPINA [Primary Care Provider] - 1 Week (call for appointment.) Time spent managing pt's care (in minutes): 35
== END 2021-01-12 17:50 | disposition home or self-care (01) | DRG 177 ==
LOC: ER 12:30 → ERHOLD 18:48 → EDBD 18:48 → 4TH 01-03 21:54
PROVIDERS: ADMIT Hospitalist; ATTEND Hospitalist
DX: U07.1 COVID-19 (principal); J12.82 Pneumonia due to coronavirus disease 2019; J96.01 Acute respiratory failure with hypoxia; K85.90 Acute pancreatitis without necrosis or infection, unspecified; M06.9 Rheumatoid arthritis, unspecified; R79.89 Other specified abnormal findings of blood chemistry; K76.0 Fatty (change of) liver, not elsewhere classified; I10 Essential (primary) hypertension
CPT/HCPCS: 36415; 71045; 76700; 80048; 80053; 80061; 80076; 82728; 82947; 83605; 83690; 83735; 84145; 84484; 85025; 85379; 85610; 85730; 86140; 87040; 93005; 94010; 94640; 94760; 96374; 97110; 97161; 99284; J1100; J1650; J2920; J2930; J7030

== ENCOUNTER 2021-01-18 13:08 | Inpatient (IN) | payer BC ==
--- OUTSIDE RECORDS SUMMARY | 2021-01-18 13:10 | XMS REPORT | Continuity of Care Document ---
:1960 Author Organization [facility] t Address [address] [place] [address] Dr. Bhagat [address] [place] [id number] Care Team Providers Name Role Phone TherapyAly [...] Facility Department ID 2021-01-01 2021-01-01 Nurse Therapy, [facility] [id number] 12:03:39 13:03:39 Visit Adc Aly Atkinson [id number] Infusion [place] [id number] Surgical [phone] [place] 053 Results This patient has no known results.
[2021-01-18 13:58] LABS: Absolute Lymphocytes (CBC) 0.3 K/uL (0.7-4.9); Basophils % 0.3 % (0-1.3); Hematocrit 47.4 % (39.6-49.0); Lymphocytes % 1.6 % (15.3-44.8); RBC Red Blood Cell Count 6.12 M/uL (4.33-5.43)
[2021-01-18 13:59] LABS: Protime INR 1.37
[2021-01-18 14:13] LABS: ALT/SGPT 67 U/L (12-78); AST/SGOT 73 U/L (15-37); Albumin 2.6 g/dL (3.4-5.0); Alkaline Phosphatase 167 U/L (45-117); BUN Blood Urea Nitrogen 15 mg/dL (7-18); Bicarbonate 23 mmol/L (21-32); Bilirubin Total 1.8 mg/dL (0.2-1.0); Ferritin 377.1 ng/mL (26-388); Glucose Level 141 mg/dL (74-106); Lipase 75 U/L (73-393); Potassium 4.3 mmol/L (3.5-5.1); Sodium Level 138 mmol/L (136-145); Troponin (Emerg Dept Use Only) < 0.02 ng/mL (0.0-0.045)
--- NOTE | 2021-01-18 15:17 | ER ---
Nurse's Notes [facility] Name: Jose Juan Hall Age: 60 yrs Sex: Male : 1960 Arrival Date: 01/18/2021 Time: 13:09 Bed 17 Private MD: Diagnosis: Hypoxemia;Severe sepsis without septic shock;Other specified viral diseases-covid - 19 Presentation: 01/18 13:23 Chief complaint: EMS states: pt was recently admitted and discharged on 01/12. per EMS tr6 pt began feeling bad again on 01/16. Today pt reported that his O2 pulse Ox at home read 35%. EMS reports that initially pt was 45% on RA, given albuterol, solumedrol 125 en route. 15L on NR sat 90%. pt looks visibly uncomfortable and labored breathing. Coronavirus screen: At this time, unable to obtain information related to travel outside the [place] Client reports previous positive COVID test result. Ebola Screen: No symptoms or risks identified at this time. Initial Sepsis Screen: Does the patient meet any 2 criteria? RR > 20 per min. HR > 90 bpm. Yes Does the patient have a suspected source of infection? Yes: Other: +covid. Risk Assessment: Do you want to hurt yourself or someone else? Patient reports no desire to harm self or others. Onset of symptoms is unknown. 13:23 Method Of Arrival: EMS: [facility] tr6 13:23 Acuity: HARRY 2 tr6 Historical: - Allergies: 13:27 tramadol; tr6 - Home Meds: 13:27 gabapentin 300 mg Oral cap 1 cap 3 times per day [Active]; valsartan 90 mg Oral once tr6 daily [Active]; - PMHx: 13:27 Hypertensive disorder; RA; tr6 13:28 covid; tr6 - Immunization history:: Client reports having NOT received the Covid vaccine. - Social history:: Smoking status: unknown. - Family history:: not pertinent. Screenin:28 Abuse screen: Denies threats or abuse. Denies injuries from another. Nutritional tr6 screening: No deficits noted. Tuberculosis screening: No symptoms or risk factors identified. Fall Risk None identified. Assessment: 13:53 Pain: Denies pain. Cardiovascular: Rhythm is sinus tachycardia. Respiratory: Airway is tr6 patent Respiratory effort is labored, Breath sounds are diminished. 18:58 Reassessment: see triage assessment. tr6 Vital Signs: 13:23 BP 102 / 65; Pulse 115; Resp 26; Temp 97.6(A); Pulse Ox 88% on 15% Non-rebreather mask; tr6 18:58 Pulse 93; Resp 28; Pulse Ox 90% on 15% Non-rebreather mask; tr6 ED Course: 13:09 Patient arrived in ED. ds1 13:18 Irwin Escalona MD is Attending Physician. ma2 13:23 Carla Nicolas, FRANK is Primary Nurse. tr6 13:27 Triage completed. tr6 13:28 Awaiting lab results. tr6 13:28 Patient has correct armband on for positive identification. Fall risk band placed. tr6 Placed in gown. Bed in low position. Call light in reach. Side rails up X 1. engine monitor on. Pulse ox on. NIBP on. Door closed. Noise minimized. Visitors limited. Lights dimmed. Moved to private room. Warm blanket given. 13:28 No provider procedures requiring assistance completed. Maintain EMS IV. Dressing tr6 intact. Good blood return noted. Site clean \T\ dry. Oxygen administration via nasal cannula \T\ 6L/min Oxygen administration via non-rebreather mask \T\ 15L/min Response to oxygen therapy: symptoms improved. 13:30 Initial lab(s) drawn, by me, by ED staff, sent to lab. First set of blood cultures mb4 drawn by me. 13:30 Inserted saline lock: 20 gauge in right antecubital area, using aseptic technique. vg1 13:43 Head of bed elevated. patient positioned left lateral recumbent. mb4 14:47 EKG done, by ED staff, reviewed by Irwin Escalona MD. dh3 15:13 CXR XRAY In Process Unspecified. EDMS 15:16 Caleb Burks MD is Hospitalizing Provider. ma2 21:06 Blood Culture Sent. bs2 21:07 BMP Sent. bs2 21:07 Blood Culture Adult (2) Sent. bs2 21:07 C-Reactive Protein Sent. bs2 Administered Medications: 14:27 Drug: SOLU-Medrol (methylPrednisoLONE) 125 mg Route: IVP; Site: left forearm; tr6 14:59 Follow up: Response: No adverse reaction tr6 14:27 Drug: Lovenox (enoxaparin) 80 mg Route: Sub-Q; Site: abdomen; tr6 14:59 Follow up: Response: No adverse reaction tr6 14:27 Drug: AZITHromycin 500 mg Route: IVPB; Infused Over: 1 hrs; Site: left forearm; tr6 17:14 Follow up: Response: No adverse reaction; IV Status: Completed infusion; IV Intake: tr6 250ml 14:27 Drug: NS 0.9% 500 ml Route: IV; Rate: 75 ml/hr; Site: left forearm; tr6 17:14 Follow up: Response: No adverse reaction; IV Intake: 500ml tr6 17:15 Follow up: IV Status: Completed infusion tr6 19:43 Drug: morphine 4 mg Route: IVP; Site: left antecubital; bs2 20:47 Follow up: Response: No adverse reaction bs2 Intake: 17:14 IV: 500ml; Total: 500ml. tr6 17:14 IV: 250ml; Total: 750ml. tr6 Outcome: 15:17 Decision to Hospitalize by Provider. ma2 01/20 00:32 Patient left the ED. em Signatures: Dispatcher [employer] Isauro Argueta RN Alicia Berrios ds1 Louann Loo 3 Irwin Escalona MD MD ma2 Tessy Hankins mb4 Rosalind Borges RN RN vg1 Carla Nicolas RN RN tr6 Andra Blancas RN RN bs2
--- NOTE | 2021-01-18 15:17 | EDPHYS ---
Physician Documentation [facility] Name: Jose Juan Hall Age: 60 yrs Sex: Male : 1960 Arrival Date: 01/18/2021 Time: 13:09 Bed 17 Private MD: ED Physician Irwin Escalona HPI: 01/18 15:11 This 60 yrs old Male presents to ER via EMS with complaints of Breathing ma2 Difficulty. 15:11 The patient has shortness of breath at rest. Onset: The symptoms/episode began/occurred ma2 gradually, 2 day(s) ago. Associated signs and symptoms: Pertinent positives: productive cough, Pertinent negatives: fever, loss of consciousness, nausea. Severity of symptoms: At their worst the symptoms were severe in the emergency department the symptoms are unchanged. The patient has experienced similar episodes in the past. has covid + discharged 2 days ago from the hospital, on O2 4L NC, here with spo2 of 92 on 100 O2 via non rebreather . Historical: - Allergies: 13:27 tramadol; tr6 - Home Meds: 13:27 gabapentin 300 mg Oral cap 1 cap 3 times per day [Active]; valsartan 90 mg Oral once tr6 daily [Active]; - PMHx: 13:27 Hypertensive disorder; RA; tr6 13:28 covid; tr6 - Immunization history:: Client reports having NOT received the Covid vaccine. - Social history:: Smoking status: unknown. - Family history:: not pertinent. ROS: 15:11 Constitutional: Negative for fever, chills, and weight loss. ma2 15:11 All other systems are negative. Exam: 15:11 Constitutional: This is a well developed, well nourished patient who is awake, alert, ma2 and in no acute distress. Head/Face: Normocephalic, atraumatic. Eyes: Pupils equal round and reactive to light, extra-ocular motions intact. Lids and lashes normal. Conjunctiva and sclera are non-icteric and not injected. Cornea within normal limits. Periorbital areas with no swelling, redness, or edema. ENT: Nares patent. No nasal discharge, no septal abnormalities noted. Tympanic membranes are normal and external auditory canals are clear. Oropharynx with no redness, swelling, or masses, exudates, or evidence of obstruction, uvula midline. Mucous membranes moist. Neck: Trachea midline, no thyromegaly or masses palpated, and no cervical lymphadenopathy. Supple, full range of motion without nuchal rigidity, or vertebral point tenderness. No Meningismus. Chest/axilla: Normal chest wall appearance and motion. Nontender with no deformity. No lesions are appreciated. Cardiovascular: Regular rate and rhythm with a normal S1 and S2. No gallops, murmurs, or rubs. Normal PMI, no JVD. No pulse deficits. 15:11 Respiratory: moderate respiratory distress is noted, Respirations: labored breathing, Breath sounds: bronchial sounds, that are moderate, are heard diffusely, rhonchi, that are moderate, are heard diffusely, Respiratory rate: 40 15:11 MS/ Extremity: Pulses equal, no cyanosis. Neurovascular intact. Full, normal range ma2 of motion. Neuro: Awake and alert, GCS 15, oriented to person, place, time, and situation. Cranial nerves II-XII grossly intact. Motor strength 5/5 in all extremities. Sensory grossly intact. Cerebellar exam normal. Normal gait. Vital Signs: 13:23 BP 102 / 65; Pulse 115; Resp 26; Temp 97.6(A); Pulse Ox 88% on 15% Non-rebreather mask; tr6 18:58 Pulse 93; Resp 28; Pulse Ox 90% on 15% Non-rebreather mask; tr6 MDM: 13:18 Patient medically screened. ma2 15:11 Differential diagnosis: Anemia Anxiety Reaction Bronchitis pneumonia, pulmonary edema, ma2 reactive airway disease. Data reviewed: vital signs, nurses notes. Counseling: I had a detailed discussion with the patient and/or guardian regarding: the historical points, exam findings, and any diagnostic results supporting the discharge/admit diagnosis, the presence of at least one elevated blood pressure reading (>120/80) during this emergency department visit, the need for outpatient follow up. Response to treatment: the patient's symptoms have markedly improved after treatment. 01/18 13:25 Order name: BMP wa2 01/18 13:25 Order name: Blood Culture Adult (2) wa2 01/18 13:25 Order name: C-Reactive Protein wa2 01/18 13:25 Order name: CBC with Diff wa2 01/18 13:25 Order name: Ferritin; Complete Time: 14:21 [facility] 01/18 13:25 Order name: LFT's; Complete Time: 14:21 [facility] 01/18 13:25 Order name: Lactate; Complete Time: 14:21 [facility] 01/18 13:25 Order name: Lipase; Complete Time: 14:21 [facility] 01/18 13:25 Order name: PT-INR [facility] 01/18 13:25 Order name: Procalcitonin [facility] 01/18 13:25 Order name: Ptt, Activated [facility] 01/18 13:25 Order name: Troponin (emerg Dept Use Only); Complete Time: 14:21 [facility] 01/18 13:25 Order name: Urine Microscopic Only [facility] 01/18 13:26 Order name: Basic Metabolic Panel; Complete Time: 14:21 [facility] 01/18 13:25 Order name: CXR XRAY [facility] 01/18 13:26 Order name: Blood Culture [facility] 01/18 13:26 Order name: C-Reactive Protein; Complete Time: 14:21 [facility] 01/18 15:38 Order name: CBC Smear Scan [facility] 01/18 17:25 Order name: Lactate Sepsis 2 HR Follow-up [facility] 01/18 21:17 Order name: Urine Dipstick-Ancillary [facility] 01/19 03:51 Order name: Comprehensive Metabolic Panel [facility] 01/19 03:51 Order name: C-Reactive Protein [facility] 01/19 03:51 Order name: Ferritin [facility] 01/19 07:42 Order name: D-Dimer [facility] 01/19 12:46 Order name: CBC with Automated Diff [facility] 01/19 21:04 Order name: Glucose, Ancillary Testing [facility] 01/18 13:25 Order name: EKG; Complete Time: 13:27 [facility] 01/18 13:25 Order name: Cardiac monitoring; Complete Time: 13:52 [facility] 01/18 13:25 Order name: Droplet/Contact Precautions; Complete Time: 13:52 [facility] 01/18 13:25 Order name: EKG - Nurse/Tech; Complete Time: 14:48 [facility] 01/18 13:25 Order name: IV Start; Complete Time: 13:52 [facility] 01/18 13:25 Order name: Labs collected and sent; Complete Time: 13:52 [facility] 01/18 13:25 Order name: O2 Per Protocol; Complete Time: 13:52 [facility] 01/18 13:25 Order name: O2 Sat Monitoring; Complete Time: 13:52 wa2 01/18 20:45 Order name: CONS Physician Consult; Complete Time: 20:47 EDMS Administered Medications: 14:27 Drug: SOLU-Medrol (methylPrednisoLONE) 125 mg Route: IVP; Site: left forearm; tr6 14:59 Follow up: Response: No adverse reaction tr6 14:27 Drug: Lovenox (enoxaparin) 80 mg Route: Sub-Q; Site: abdomen; tr6 14:59 Follow up: Response: No adverse reaction tr6 14:27 Drug: AZITHromycin 500 mg Route: IVPB; Infused Over: 1 hrs; Site: left forearm; tr6 17:14 Follow up: Response: No adverse reaction; IV Status: Completed infusion; IV Intake: tr6 250ml 14:27 Drug: NS 0.9% 500 ml Route: IV; Rate: 75 ml/hr; Site: left forearm; tr6 17:14 Follow up: Response: No adverse reaction; IV Intake: 500ml tr6 17:15 Follow up: IV Status: Completed infusion tr6 19:43 Drug: morphine 4 mg Route: IVP; Site: left antecubital; bs2 20:47 Follow up: Response: No adverse reaction bs2 Disposition: 15:15 Critical Care:. ma2 Disposition Summary: 01/18/21 15:17 Hospitalization Ordered Hospitalization Status: Inpatient Admission ma2 Provider: Caleb Burks Condition: Stable ma2 Problem: new ma2 Symptoms: are unchanged ma2 Bed/Room Type: Standard [facility] Location: Telemetry/MedSurg (Inpatient)(01/19/21 20:57) Room Assignment: [facility](01/19/21 20:57) Diagnosis - Hypoxemia ma2 - Severe sepsis without septic shock ma2 - Other specified viral diseases - covid - 19 ma2 Forms: - Medication Reconciliation Form ma2 - SBAR form ma2 Critical care time excluding procedures: 15:15 Critical care time: Bedside Care: 20 minutes, Consultation: 10 minutes, Family ma2 Intervention: 5 minutes. Total time: 35 minutes Signatures: Dispatcher [employer] EDMS Mariam Alejandro RN RN Irwin Escalona MD MD wa2 Carla Nicolas RN RN tr6 Andra Blancas RN RN bs2 Corrections: (The following items were deleted from the chart) 20:25 15:17 Telemetry/MedSurg (Inpatient) ma2 mw 20:25 15:17 ma2 mw 21:07 13:27 BiPap ([employer] Only)+[email or web address] ordered. EDMS EDMS 01/19 20:57 01/18 20:25 [facility] ER HOLD mw mw 01/19 20:57 01/18 20:25 ERHOLD- mw mw
--- NOTE | 2021-01-18 15:24 | RAD REPORT ---
EXAM DESCRIPTION: Nan Single View01/18/2021 3:13 pm CLINICAL HISTORY: Congestion COMPARISON: January 08, 2001 FINDINGS: Marked bilateral pulmonary opacities. . The heart is normal size IMPRESSION: Marked bilateral pulmonary opacities have worsened since the prior exam probably pneumon ia
[2021-01-18 15:38] LABS: Blood Morphology Comment NOT SEEN (NOT SEEN); Platelet Estimate ADEQ; White Blood Cell Scan OK (OK)
[2021-01-18] MEDS ORDERED: MORPHINE 4 MG/ML SYR ONE (19:53)
[2021-01-18] MEDS ORDERED: ALBUTEROL 2.5 MG/3 ML NEB SOL NEB PRN (20:42)
[2021-01-18] MEDS ORDERED: ONDANSETRON 4 MG/2 ML VIAL IV PRN (20:42)
[2021-01-18] MEDS ORDERED: IPRATROPIUM BROM 0.5MG/2.5ML NEB PRN (20:42)
[2021-01-18] MEDS ORDERED: METHYLPREDNISOLONE 40 MG INJ IV SCH (21:00)
[2021-01-18 21:18] LABS: Urine Blood Negative (Negative); Urine Glucose Negative (Negative); Urine Protein 2+ (Negative); Urine Specific Gravity >=1.030 (1.005-1.030)
[2021-01-18 21:48] LABS: Urine Bacteria <20 /HPF (NONE SEEN); Urine Mucus HEAVY /HPF (NONE SEEN); Urine RBC NONE SEEN /HPF (NONE SEEN)
--- NOTE | 2021-01-18 22:19 | P.HP ---
Certification for Inpatient Patient admitted to: Inpatient With expected LOS: >2 Midnights Patient will require the following post-hospital care: None Practitioner: I am a practitioner with admitting privileges, knowledge of patient current condition, hospital course, and medical plan of care. Services: Services provided to patient in accordance with Admission requirements found in Title 42 Section 412.3 of the Code of Federal Regulations Patient History Date of Service: 01/18/21 Reason for admission: COVID-19 pneumonia History of Present Illness: Patient is a 60-year-old gentleman who came to the hospital with worsening shortness of breath. Patient has worsening hypoxemia at home. Patient was satting 50%. Patient son called EMS and they came out and decided to bring patient into the emergency room for further evaluation. In the emergency room patient was placed on a non-rebreather and his sats were in the low 90s. Patient be admitted to the hospital for further evaluation. Patient's inflammatory markers are elevated. CRP is significantly elevated. Will go ahead and give additional IV steroids to try to get him to feeling better. Allergies tramadol Allergy (Verified 01/02/21 21:49) Anaphylaxis Home Medications: Ascorbic Acid [Vitamin C*] 1 tab PO DAILY 01/04/21 Celecoxib [Celebrex*] 100 mg PO BID 01/04/21 Cholecalciferol (Vitamin D3) [Vitamin D3] 1,000 unit PO DAILY 01/04/21 Cyanocobalamin (Vitamin B-12) [Vitamin B12] 2,500 mcg PO DAILY 01/04/21 Folic Acid 1 mg PO DAILY 01/04/21 Gabapentin 300 mg PO TID 01/04/21 Hydrocodone Bit/Acetaminophen [Hydrocodon-Acetaminophn 10-325] 1 tab PO TID 01/04/21 Multivit-Min/FA/Lycopen/Lutein [Centravites 50 Plus Tablet] 1 tab PO DAILY 01/04/21 Secukinumab [Cosentyx Pen] 300 mg SQ SEECOM 01/04/21 Valsartan [Diovan*] 160 mg PO DAILY 01/04/21 Zinc Sulfate [Zinc Sulfate*] 1 tab PO DAILY 01/04/21 Albuterol Inhaler [Ventolin Inhaler*] 2 puff IH Q6H PRN #1 hfa.aer.ad 01/12/21 Benzonatate [Tessalon Perle] 200 mg PO TID PRN #30 cap 01/12/21 Budesonide/Formoterol Fumarate [Symbicort 160-4.5 Mcg Inhaler] 2 puff IH BID #1 hfa.aer.ad 01/12/21 predniSONE [Prednisone*] 20 mg PO BID #26 tab 01/12/21 - Past Medical/Surgical History -: Rheumatoid arthritis -: Hypertension Past Surgical History: Patient denies surgical history - Family History Father Family History: Reviewed- Non-Contributory - Social History Smoking Status: Never smoker Alcohol use: No CD- Drugs: No Review of Systems 10-point ROS is otherwise unremarkable Physical Examination - Vital Signs Temperature: 99 F Blood Pressure: 140/70 Pulse: 100 Respirations: 26 Pulse Ox (%): 89 - Physical Exam General: Alert, In no apparent distress, Oriented x3 HEENT: Atraumatic, PERRLA, Mucous membr. moist/pink, EOMI, Sclerae nonicteric Neck: Supple, 2+ carotid pulse no bruit, No LAD, Without JVD or thyroid abnormality Respiratory: Diminished, Expiratory wheezes Cardiovascular: Regular rate/rhythm, Normal S1 S2 Gastrointestinal: Normal bowel sounds, Soft and benign, Non-distended, No tenderness Musculoskeletal: No tenderness Integumentary: No rashes Neurological: Normal gait, Normal speech, Normal strength at 5/5 x4 extr, Normal tone, Sensation intact, Cranial nerves 3-12 intact, Normal affect Lymphatics: No axilla or inguinal lymphadenopathy - Studies Laboratory Data (last 24 hrs) 01/18/21 13:30: PT 15.8 H, INR 1.37, APTT 23.3 L 01/18/21 13:30: WBC 17.60 H D, Hgb 15.2, Hct 47.4, Plt Count 283 D 01/18/21 13:30: Sodium 138, Potassium 4.3, BUN 15, Creatinine 1.00, Glucose 141 H, Total Bilirubin 1.8 H, AST 73 H, ALT 67, Alkaline Phosphatase 167 H, Lipase 75 Assessment & Plan - Problems (Diagnosis) (1) Pneumonia due to COVID-19 virus Current Visit: No Status: Acute (2) History of rheumatoid arthritis Current Visit: No Status: Acute (3) Hypoxemia Current Visit: No Status: Acute - Plan 1. Continue with IV steroids 2. Monitor inflammatory markers 3. Repeat chest x-ray 4. O2 per protocol 5. Pulmonary consultation 6. Continue with albuterol inhaler therapy; also supportive care 7. Monitor LFTs 8. GI and DVT prophylaxis Discharge Plan: Home Plan to discharge in: Greater than 2 days - Advance Directives Does patient have a Living Will: No Does patient have a Durable POA for Healthcare: No - Code Status/Comfort Care Code Status Assessed: Yes Code Status: Full Code Critical Care: No Time Spent Managing PTS Care (In Minutes): 45
[2021-01-19] MEDS ORDERED: METHYLPREDNISOLONE 40 MG INJ IV SCH (01:00)
[2021-01-19] MEDS: APIXABAN 5 MG TABLET PO SCH ×3 (01:16→21:00)
[2021-01-19] MEDS ORDERED: APIXABAN 5 MG TABLET ONE ×3 (01:32→21:26)
[2021-01-19] MEDS ORDERED: METHYLPREDNISOLONE 125 MG INJ ONE ×2 (01:32→21:26)
[2021-01-19] MEDS: METHYLPREDNISOLONE 125 MG INJ IV SCH ×4 (02:00→20:00)
[2021-01-19 03:50] LABS: ALT/SGPT 54 U/L (12-78); AST/SGOT 54 U/L (15-37); Albumin 2.3 g/dL (3.4-5.0); Alkaline Phosphatase 161 U/L (45-117); BUN Blood Urea Nitrogen 16 mg/dL (7-18); Bicarbonate 25 mmol/L (21-32); Bilirubin Total 1.3 mg/dL (0.2-1.0); Ferritin 311.7 ng/mL (26-388); Glucose Level 146 mg/dL (74-106); Potassium 4.5 mmol/L (3.5-5.1); Sodium Level 139 mmol/L (136-145)
[2021-01-19] MEDS: BENZONATATE 100 MG CAP PO PRN (06:08)
[2021-01-19] MEDS: MORPHINE 2 MG/ML SYR IV PRN ×2 (06:08→14:12)
[2021-01-19] MEDS ORDERED: BENZONATATE 100 MG CAP PO ONE (06:25)
[2021-01-19] MEDS ORDERED: MORPHINE 2 MG/ML SYR ONE ×2 (06:26→14:25)
[2021-01-19] MEDS: HYDROCODONE/APAP 10/325 TAB PO SCH ×3 (09:00→21:00)
[2021-01-19] MEDS: ASCORBIC ACID 500 MG TABLET PO SCH (09:00)
[2021-01-19] MEDS: GABAPENTIN 300 MG CAP PO SCH ×3 (09:00→21:00)
[2021-01-19] MEDS ORDERED: ASCORBIC ACID 500 MG TABLET ONE (10:32)
[2021-01-19] MEDS ORDERED: GABAPENTIN 300 MG CAP ONE ×3 (10:33→21:26)
[2021-01-19] MEDS ORDERED: HYDROCODONE/APAP 10/325 TAB ONE ×3 (10:33→23:04)
[2021-01-19] MEDS ORDERED: METHYLPREDNISOLONE 40 MG INJ ONE ×2 (10:34→14:26)
--- NOTE | 2021-01-19 10:42 | P.PN ---
Subjective Date of Service: 01/19/21 Primary Care Provider: unknown Chief Complaint: COVID-19 pneumonia Subjective: Other (Patient stable. Currently on nonrebreather at 100% with 15 L.) Physical Examination - Vital Signs Temperature: 99 F Blood Pressure: 140/70 Pulse: 100 Respirations: 38 Pulse Ox (%): 80 - Physical Exam General: Alert, In no apparent distress, Oriented x3, Cooperative HEENT: Atraumatic Neck: Supple Respiratory: Other (Decreased at the bases. Currently on nonrebreather at 15 L) Cardiovascular: Normal pulses, Regular rate/rhythm Gastrointestinal: Normal bowel sounds Musculoskeletal: No erythema, No tenderness, No warmth Integumentary: No tenderness/swelling Neurological: Normal speech, Normal strength at 5/5 x4 extr, Normal tone - Studies Laboratory Data (last 24 hrs) 01/18/21 13:30: PT 15.8 H, INR 1.37, APTT 23.3 L 01/18/21 13:30: WBC 17.60 H D, Hgb 15.2, Hct 47.4, Plt Count 283 D 01/18/21 13:30: Sodium 138, Potassium 4.3, BUN 15, Creatinine 1.00, Glucose 141 H, Total Bilirubin 1.8 H, AST 73 H, ALT 67, Alkaline Phosphatase 167 H, Lipase 75 Medications List Reviewed: Yes Assessment & Plan Discharge Plan: Home Plan to discharge in: Greater than 2 days Physician Review Additional Text: COVID: Positive Chest x-ray: COMPARISON: January 08, 2001 FINDINGS: Marked bilateral pulmonary opacities. . The heart is normal size IMPRESSION: Marked bilateral pulmonary opacities have worsened since the prior exam probably pneumonia Impression: Dyspnea secondary to acute respiratory failure with hypoxia related to bilateral Covid pneumonia Hypertension Rheumatoid arthritis Leukocytosis Plan: Dyspnea secondary to acute respiratory failure with hypoxia related to bilateral Covid pneumonia: CRP shows slight improvement. Pulmonology consulted for further recommendation. Await recommendations. Continue IV steroids and vitamin supplementation. Continue to monitor ferritin/CRP daily. Recheck chest x-ray tomorrow. Patient on DVT prophylaxisEliquis. Home medications restarted. Encourage proning, incentive spirometer use. Respiratory to continue to wean off oxygen. Currently on nonrebreather at 15 L. Will continue to monitor the patient closely. Hypertension: Restart valsartan. Rheumatoid arthritis: Continue with Celebrex, gabapentin. Leukocytosis: Likely from steroids. We will monitor this closely. Will discuss with pulmonology. DVT prophylaxis: Eliquis CODE STATUS: This was readdressed with the patient. Patient wishes to be DO NOT INTUBATE. Advanced care [id number] minutes: Patient wishes to go home at discharge Time Spent Managing Pts Care (In Minutes): 55
[2021-01-19] MEDS ORDERED: FENTANYL CITR 100 MCG/2 ML IV ONE (11:50)
[2021-01-19 12:29] LABS: Absolute Lymphocytes (CBC) 0.3 K/uL (0.7-4.9); Basophils % 0.7 % (0-1.3); Hematocrit 43.1 % (39.6-49.0); Lymphocytes % 1.9 % (15.3-44.8); MPV 7.5 fL (7.6-11.3); RBC Red Blood Cell Count 5.65 M/uL (4.33-5.43)
[2021-01-19] MEDS: ACETAMINOPHEN 500 MG TAB PO PRN (14:13)
[2021-01-19] MEDS ORDERED: ACETAMINOPHEN 500 MG TAB ONE (14:25)
[2021-01-19] MEDS ORDERED: ONDANSETRON 4 MG/2 ML VIAL ONE (14:26)
[2021-01-19] MEDS: CELECOXIB 100 MG CAPSULE PO SCH (21:00)
[2021-01-19] MEDS ORDERED: CELECOXIB 100 MG CAPSULE ONE (22:18)
[2021-01-20] MEDS ORDERED: FENTANYL CITR 100 MCG/2 ML ONE (00:24)
[2021-01-20] MEDS: METHYLPREDNISOLONE 125 MG INJ IV SCH ×4 (01:06→21:39)
[2021-01-20 05:36] LABS: Absolute Lymphocytes (CBC) 0.4 K/uL (0.7-4.9); Basophils % 0.1 % (0-1.3); Hematocrit 43.1 % (39.6-49.0); Lymphocytes % 2.5 % (15.3-44.8); MPV 7.6 fL (7.6-11.3); RBC Red Blood Cell Count 5.61 M/uL (4.33-5.43)
[2021-01-20 05:49] LABS: ALT/SGPT 43 U/L (12-78); AST/SGOT 31 U/L (15-37); Albumin 2.3 g/dL (3.4-5.0); Alkaline Phosphatase 167 U/L (45-117); BUN Blood Urea Nitrogen 19 mg/dL (7-18); Bicarbonate 28 mmol/L (21-32); Ferritin 291.8 ng/mL (26-388); Glucose Level 137 mg/dL (74-106); Magnesium 2.1 mg/dL (1.8-2.4); Potassium 4.7 mmol/L (3.5-5.1); Protein, Total 7.2 g/dL (6.4-8.2); Sodium Level 139 mmol/L (136-145)
--- NOTE | 2021-01-20 06:43 | P.PN ---
Subjective Date of Service: 01/20/21 Primary Care Provider: unknown Chief Complaint: COVID-19 pneumonia Subjective: Improving (Currently on 15 L) Physical Examination - Vital Signs Temperature: 97.8 F Blood Pressure: 126/74 Pulse: 96 Respirations: 22 Pulse Ox (%): 85 - Studies Medications List Reviewed: Yes Assessment & Plan Discharge Plan: Home Plan to discharge in: Greater than 2 days Physician Review Additional Text: COVID: Positive Chest x-ray: COMPARISON: January 08, 2001 FINDINGS: Marked bilateral pulmonary opacities. . The heart is normal size IMPRESSION: Marked bilateral pulmonary opacities have worsened since the prior exam probably pneumonia Follow-up chest x-ray 01/20/2021: COMPARISON: January 18, 2021 FINDINGS: Mild worsening in extensive bilateral pulmonary opacities. Heart is normal size IMPRESSION: Mild worsening in extensive bilateral pulmonary opacities likely pneumonia Physical Exam: GENERAL: The patient is a well-developed, well-nourished, in no apparent distress. Alert and oriented x3. VITAL SIGNS: Reviewed HEENT: Neck supple LUNGS: Better air movement. Currently on 15 L HEART: Regular rate and rhythm, no appreciable gallops, rubs, murmurs or extra heart sounds ABDOMEN: Soft, nontender, and nondistended. Positive bowel sounds. No hepatosplenomegaly was noted. EXTREMITIES: Without any cyanosis, clubbing, rash, lesions or peripheral edema. NEUROLOGIC: The patient is oriented to person, place and time. Strength and sensation are grossly intact. Face is symmetric. SKIN: Normal color, turgor and temperature. No ulcerations or rashes noted. Impression: Dyspnea secondary to acute respiratory failure with hypoxia related to bilateral Covid pneumonia Hypertension Rheumatoid arthritis Leukocytosis Plan: Dyspnea secondary to acute respiratory failure with hypoxia related to bilateral Covid pneumonia: Patient continues to improve slowly. Down to 15 L. Continue to wean off to maintain sats above 93%. Continue IV steroids and vitamin supplementation. Patient on Eliquis for DVT prophylaxis. Encourage proning, incentive spirometer. Continue to wean off oxygen. Continue with pulmonology recommendations. We will continue to monitor the patient closely. Hypertension: Continue valsartan. Rheumatoid arthritis: Continue with Celebrex, gabapentin. Leukocytosis: Likely from steroids. Will monitor closely. Will discuss with pulmonology. DVT prophylaxis: Eliquis CODE STATUS: This was readdressed with the patient. Patient wishes to be DO NOT INTUBATE. Advanced care [id number] minutes: Patient wishes to go home at discharge Time Spent Managing Pts Care (In Minutes): 55
--- NOTE | 2021-01-20 07:32 | RAD REPORT ---
EXAM DESCRIPTION: Nan Single View01/20/2021 7:10 am CLINICAL HISTORY: Shortness breath COMPARISON: January 18, 2021 FINDINGS: Mild worsening in extensive bilateral pulmonary opacities. Heart is normal size IMPRESSION: Mild worsening in extensive bilateral pulmonary opacities likely pneumonia
[2021-01-20] MEDS: CELECOXIB 100 MG CAPSULE PO SCH ×2 (09:00→21:00)
[2021-01-20] MEDS: MULTIVIT W/ MINERAL TAB PO SCH (09:01)
[2021-01-20] MEDS: GABAPENTIN 300 MG CAP PO SCH ×3 (09:02→21:39)
[2021-01-20] MEDS: VALSARTAN 160 MG TAB PO SCH (09:02)
[2021-01-20] MEDS: THIAMINE HCL 100 MG TABLET PO SCH (09:02)
[2021-01-20] MEDS: ZINC SULFATE 220 MG CAP PO SCH (09:02)
[2021-01-20] MEDS: HYDROCODONE/APAP 10/325 TAB PO SCH ×3 (09:02→21:37)
[2021-01-20] MEDS: VITAMIN D 1000 UNIT TAB PO SCH (09:02)
[2021-01-20] MEDS: ASCORBIC ACID 500 MG TABLET PO SCH (09:04)
[2021-01-20] MEDS: APIXABAN 5 MG TABLET PO SCH ×2 (14:13→21:38)
[2021-01-20] MEDS ORDERED: METHYLPREDNISOLONE 125 MG INJ IV SCH (17:00)
[2021-01-20] MEDS: FAMOTIDINE 20 MG/2 ML VIAL IV SCH (21:37)
[2021-01-21] MEDS ORDERED: NA CHLORIDE 0.9% 500 ML IV ONE (04:48)
[2021-01-21 05:08] LABS: Absolute Lymphocytes (CBC) 0.1 K/uL (0.7-4.9); Basophils % 0.2 % (0-1.3); Hematocrit 40.1 % (39.6-49.0); Lymphocytes % 1.1 % (15.3-44.8); MPV 7.5 fL (7.6-11.3); RBC Red Blood Cell Count 5.16 M/uL (4.33-5.43)
[2021-01-21 05:48] LABS: Blood Morphology Comment NOT SEEN (NOT SEEN); Platelet Estimate ADEQ
[2021-01-21] MEDS: METHYLPREDNISOLONE 125 MG INJ IV SCH ×3 (05:56→21:02)
[2021-01-21 06:30] LABS: Albumin 2.2 g/dL (3.4-5.0); Bilirubin Total 0.8 mg/dL (0.2-1.0); Magnesium 2.3 mg/dL (1.8-2.4); Potassium 4.3 mmol/L (3.5-5.1); Protein, Total 6.8 g/dL (6.4-8.2)
--- NOTE | 2021-01-21 06:30 | P.PN ---
Subjective Date of Service: 01/21/21 Primary Care Provider: unknown Chief Complaint: COVID-19 pneumonia Subjective: Other (Currently on HF 100) Physical Examination - Vital Signs Temperature: 97.3 F Blood Pressure: 103/63 Pulse: 103 Respirations: 20 Pulse Ox (%): 92 - Studies Medications List Reviewed: Yes Assessment & Plan Discharge Plan: Home Plan to discharge in: Greater than 2 days Physician Review Additional Text: COVID: Positive Chest x-ray: COMPARISON: January 08, 2001 FINDINGS: Marked bilateral pulmonary opacities. . The heart is normal size IMPRESSION: Marked bilateral pulmonary opacities have worsened since the prior exam probably pneumonia Follow-up chest x-ray 01/20/2021: COMPARISON: January 18, 2021 FINDINGS: Mild worsening in extensive bilateral pulmonary opacities. Heart is normal size IMPRESSION: Mild worsening in extensive bilateral pulmonary opacities likely pneumonia Physical Exam: GENERAL: The patient is a well-developed, well-nourished, in no apparent distress. Alert and oriented x3. VITAL SIGNS: Reviewed HEENT: Neck supple LUNGS: HF 100% HEART: Regular rate and rhythm, no appreciable gallops, rubs, murmurs or extra heart sounds ABDOMEN: Soft, nontender, and nondistended. Positive bowel sounds. No hepatosplenomegaly was noted. EXTREMITIES: Without any cyanosis, clubbing, rash, lesions or peripheral edema. NEUROLOGIC: The patient is oriented to person, place and time. Strength and sensation are grossly intact. Face is symmetric. SKIN: Normal color, turgor and temperature. No ulcerations or rashes noted. Impression: Dyspnea secondary to acute respiratory failure with hypoxia related to bilateral Covid pneumonia Hypertension Rheumatoid arthritis Leukocytosis Plan: Dyspnea secondary to acute respiratory failure with hypoxia related to bilateral Covid pneumonia: Patient had difficulty last night. Increase oxygen intake required. Currently on 100% high flow. Moore catheter placed due to activity causing some hypoxia. Continue to wean off to maintain sats above 93%. Continue IV steroids and vitamin supplementation. Patient on Eliquis for DVT prophylaxis. Encourage proning, incentive spirometer. Continue to wean off oxygen. Continue with pulmonology recommendations. We will continue to monitor the patient closely. Hypertension: Continue valsartan. Rheumatoid arthritis: Continue with Celebrex, gabapentin. Leukocytosis: Likely from steroids. Will monitor closely. Will discuss with pulmonology. DVT prophylaxis: Eliquis CODE STATUS: This was readdressed with the patient. Patient wishes to be DO NOT INTUBATE. Advanced care minutes: Patient wishes to go home at discharge Time Spent Managing Pts Care (In Minutes): 55
[2021-01-21 06:47] LABS: Ferritin 296.8 ng/mL (26-388)
[2021-01-21] MEDS: CELECOXIB 100 MG CAPSULE PO SCH ×2 (09:00→21:04)
[2021-01-21] MEDS: VALSARTAN 160 MG TAB PO SCH (09:00)
[2021-01-21] MEDS: VITAMIN D 1000 UNIT TAB PO SCH (09:53)
[2021-01-21] MEDS: FAMOTIDINE 20 MG/2 ML VIAL IV SCH (09:53)
[2021-01-21] MEDS: HYDROCODONE/APAP 10/325 TAB PO SCH ×3 (09:53→21:02)
[2021-01-21] MEDS: THIAMINE HCL 100 MG TABLET PO SCH (09:53)
[2021-01-21] MEDS: APIXABAN 5 MG TABLET PO SCH ×2 (09:54→21:02)
[2021-01-21] MEDS: ASCORBIC ACID 500 MG TABLET PO SCH (09:54)
[2021-01-21] MEDS: ZINC SULFATE 220 MG CAP PO SCH (09:54)
[2021-01-21] MEDS: MULTIVIT W/ MINERAL TAB PO SCH (09:54)
[2021-01-21] MEDS: GABAPENTIN 300 MG CAP PO SCH ×3 (09:54→21:03)
[2021-01-21] MEDS: BENZONATATE 100 MG CAP PO PRN (21:03)
[2021-01-22 04:04] LABS: Absolute Lymphocytes (CBC) 0.4 K/uL (0.7-4.9); Basophils % 0.3 % (0-1.3); Hematocrit 41.4 % (39.6-49.0); Lymphocytes % 5.3 % (15.3-44.8); MPV 8.1 fL (7.6-11.3); RBC Red Blood Cell Count 5.41 M/uL (4.33-5.43)
[2021-01-22 04:30] LABS: ALT/SGPT 48 U/L (12-78); AST/SGOT 40 U/L (15-37); Albumin 2.2 g/dL (3.4-5.0); Alkaline Phosphatase 130 U/L (45-117); BUN Blood Urea Nitrogen 34 mg/dL (7-18); Bicarbonate 30 mmol/L (21-32); Bilirubin Total 0.9 mg/dL (0.2-1.0); Ferritin 284.3 ng/mL (26-388); Glucose Level 155 mg/dL (74-106); Magnesium 2.2 mg/dL (1.8-2.4); Potassium 4.9 mmol/L (3.5-5.1); Protein, Total 6.6 g/dL (6.4-8.2); Sodium Level 140 mmol/L (136-145)
[2021-01-22] MEDS: METHYLPREDNISOLONE 125 MG INJ IV SCH ×3 (06:00→21:01)
--- NOTE | 2021-01-22 06:04 | P.PN ---
Subjective Date of Service: 01/22/21 Primary Care Provider: unknown Chief Complaint: COVID-19 pneumonia Subjective: Other (Patient apparently took off his oxygen overnight. This was reinitiated. Patient on high flow at 100%.) Physical Examination - Vital Signs Temperature: 97.7 F Blood Pressure: 125/85 Pulse: 86 Respirations: 26 Pulse Ox (%): 90 - Studies Medications List Reviewed: Yes Assessment & Plan Discharge Plan: Home Plan to discharge in: Greater than 2 days Physician Review Additional Text: COVID: Positive Chest x-ray: COMPARISON: January 08, 2001 FINDINGS: Marked bilateral pulmonary opacities. . The heart is normal size IMPRESSION: Marked bilateral pulmonary opacities have worsened since the prior exam probably pneumonia Follow-up chest x-ray 01/20/2021: COMPARISON: January 18, 2021 FINDINGS: Mild worsening in extensive bilateral pulmonary opacities. Heart is normal size IMPRESSION: Mild worsening in extensive bilateral pulmonary opacities likely pneumonia Physical Exam: GENERAL: The patient is a well-developed, well-nourished, in no apparent distress. Alert and oriented x3. VITAL SIGNS: Reviewed HEENT: Neck supple LUNGS: HF 100% HEART: Regular rate and rhythm, no appreciable gallops, rubs, murmurs or extra heart sounds ABDOMEN: Soft, nontender, and nondistended. Positive bowel sounds. No hepatosplenomegaly was noted. EXTREMITIES: Without any cyanosis, clubbing, rash, lesions or peripheral edema. NEUROLOGIC: The patient is oriented to person, place and time. Strength and sensation are grossly intact. Face is symmetric. SKIN: Normal color, turgor and temperature. No ulcerations or rashes noted. Impression: Dyspnea secondary to acute respiratory failure with hypoxia related to bilateral Covid pneumonia Hypertension Rheumatoid arthritis Leukocytosis Thrombocytopenia Plan: Dyspnea secondary to acute respiratory failure with hypoxia related to bilateral Covid pneumonia: We will transfer patient to ICU for closer monitoring as the patient has been taken off his oxygen. Currently stable on high flow at 100%. Continue IV steroids and supplementation. Pulmonology will start baricitinib. Advanced directives readdressed with the patient. Patient wants to be full code. CRP and ferritin improved. We will monitor this closely. Patient with thrombocytopenia. Hold Eliquis if platelet count less than 100. Discontinue Celebrex. Patient on Eliquis for DVT prophylaxis. Encourage proning, incentive spirometer. Continue to wean off oxygen. Continue with pulmonology recommendations. We will continue to monitor the patient closely. Hypertension: Continue valsartan. Rheumatoid arthritis: Continue gabapentin. Celebrex discontinued due to thrombocytopenia. Leukocytosis: Likely from steroids. Will monitor closely. Will discuss with pulmonology. Thrombocytopenia: Celebrex discontinued. Hold Eliquis if platelet count less than 100. Continue to monitor closely. DVT prophylaxis: Eliquis CODE STATUS: This was readdressed with the patient. Patient wishes to be full code at this time. Patient was previously DO NOT INTUBATE. Advanced care [id number] minutes: Patient wishes to go home at discharge Time Spent Managing Pts Care (In Minutes): 55
--- NOTE | 2021-01-22 08:26 | P.CNS ---
Date of Consult: 01/22/21 Primary Care Provider: unknown Chief Complaint: COVID-19 pneumonia History of Present Illness: Patient is 60-year-old patient is 60 years of age he was recently discharged came back again with respiratory failure he is remains very hypoxic and agitated Allergies tramadol Allergy (Verified 01/02/21 21:49) Anaphylaxis Home Medications: Ascorbic Acid [Vitamin C*] 1 tab PO DAILY 01/04/21 Celecoxib [Celebrex*] 100 mg PO BID 01/04/21 Cholecalciferol (Vitamin D3) [Vitamin D3] 1,000 unit PO DAILY 01/04/21 Cyanocobalamin (Vitamin B-12) [Vitamin B12] 2,500 mcg PO DAILY 01/04/21 Folic Acid 1 mg PO DAILY 01/04/21 Gabapentin 300 mg PO TID 01/04/21 Hydrocodone Bit/Acetaminophen [Hydrocodon-Acetaminophn 10-325] 1 tab PO TID 01/04/21 Multivit-Min/FA/Lycopen/Lutein [Centravites 50 Plus Tablet] 1 tab PO DAILY 01/04/21 Secukinumab [Cosentyx Pen] 300 mg SQ SEECOM 01/04/21 Valsartan [Diovan*] 160 mg PO DAILY 01/04/21 Zinc Sulfate [Zinc Sulfate*] 1 tab PO DAILY 01/04/21 Albuterol Inhaler [Ventolin Inhaler*] 2 puff IH Q6H PRN #1 hfa.aer.ad 01/12/21 Benzonatate [Tessalon Perle] 200 mg PO TID PRN #30 cap 01/12/21 Budesonide/Formoterol Fumarate [Symbicort 160-4.5 Mcg Inhaler] 2 puff IH BID #1 hfa.aer.ad 01/12/21 predniSONE [Prednisone*] 20 mg PO BID #26 tab 01/12/21 - Past Medical/Surgical History -: Rheumatoid arthritis -: Hypertension - Family History Father Family History: Reviewed- Non-Contributory - Social History Smoking Status: Unknown if ever smoked Alcohol use: No CD- Drugs: No Review of Systems Respiratory: Shortness of Breath Physical Examination Temp Pulse Resp BP Pulse Ox 97.7 F 86 26 H 125/85 90 L 01/22/21 06:04 01/22/21 06:04 01/22/21 06:04 01/22/21 06:04 01/22/21 06:04 General: Moderate distress, Delirious - Problems (1) Pancreatitis Current Visit: No Status: Acute Plan: Age 60 admitted with respiratory failure from coronavirus/diffuse bilateral pneumonia diffuse bilateral pneumonia/I have added Barcitinib I have added Barcitinib continue with steroids/recommend transfer to the ICU recommend transfer to ICU for close monitoring
[2021-01-22] MEDS: VALSARTAN 160 MG TAB PO SCH (08:51)
[2021-01-22] MEDS: MULTIVIT W/ MINERAL TAB PO SCH (08:51)
[2021-01-22] MEDS: ZINC SULFATE 220 MG CAP PO SCH (08:51)
[2021-01-22] MEDS: GABAPENTIN 300 MG CAP PO SCH ×3 (08:52→21:00)
[2021-01-22] MEDS: FAMOTIDINE 20 MG/2 ML VIAL IV SCH (08:52)
[2021-01-22] MEDS: THIAMINE HCL 100 MG TABLET PO SCH (08:53)
[2021-01-22] MEDS: HYDROCODONE/APAP 10/325 TAB PO SCH ×3 (08:53→21:00)
[2021-01-22] MEDS: VITAMIN D 1000 UNIT TAB PO SCH (08:54)
[2021-01-22] MEDS: APIXABAN 5 MG TABLET PO SCH ×2 (08:54→21:00)
[2021-01-22] MEDS: ASCORBIC ACID 500 MG TABLET PO SCH (08:54)
[2021-01-22] MEDS: BARICITINIB 2 MG TABLET PO SCH (10:20)
[2021-01-22] MEDS: BENZONATATE 100 MG CAP PO PRN (12:37)
[2021-01-22] MEDS: FENOFIBRATE 160 MG TAB PO SCH (17:03)
[2021-01-22] MEDS: FAMOTIDINE 20 MG TAB PO SCH (21:01)
--- NOTE | 2021-01-23 05:57 | P.PN ---
Subjective Date of Service: 01/23/21 Primary Care Provider: unknown Chief Complaint: COVID-19 pneumonia Subjective: Other (Stable on HF) Physical Examination - Vital Signs Temperature: 98.2 F Blood Pressure: 125/66 Pulse: 60 Respirations: 14 Pulse Ox (%): 100 - Studies Medications List Reviewed: Yes Assessment & Plan Discharge Plan: Home Plan to discharge in: Greater than 2 days Physician Review Additional Text: COVID: Positive Chest x-ray: COMPARISON: January 08, 2001 FINDINGS: Marked bilateral pulmonary opacities. . The heart is normal size IMPRESSION: Marked bilateral pulmonary opacities have worsened since the prior exam probably pneumonia Follow-up chest x-ray 01/23/2021: COMPARISON: Chest Single View dated 01/20/2021; Chest Single View dated 01/18/2021; Chest Single View dated 01/08/2021; Chest Single View dated 01/05/2021 FINDINGS: Portable technique limits examination quality. Since 01/20/2021, there has been mild improvement in bilateral pulmonary opacities seen. The heart is upper limit of normal in size. No displaced fractures. IMPRESSION: Mild improvement in lung aeration since comparative study. Physical Exam: GENERAL: The patient is a well-developed, well-nourished, in no apparent distress. Alert and oriented x3. VITAL SIGNS: Reviewed HEENT: Neck supple LUNGS: HF 100% HEART: Regular rate and rhythm, no appreciable gallops, rubs, murmurs or extra heart sounds ABDOMEN: Soft, nontender, and nondistended. Positive bowel sounds. No hepatosplenomegaly was noted. EXTREMITIES: Without any cyanosis, clubbing, rash, lesions or peripheral edema. NEUROLOGIC: The patient is oriented to person, place and time. Strength and sensation are grossly intact. Face is symmetric. SKIN: Normal color, turgor and temperature. No ulcerations or rashes noted. Impression: Dyspnea secondary to acute respiratory failure with hypoxia related to bilateral Covid pneumonia with transient Covid encephalopathy Hypertension Rheumatoid arthritis Leukocytosis Thrombocytopenia Plan: Dyspnea secondary to acute respiratory failure with hypoxia related to bilateral Covid pneumonia with transient Covid encephalopathy: Patient currently in ICU. Overall stable. Currently on high flow at 9%. Patient alert, cooperative. Patient possible with underlying Covid encephalopathy at times. This is transient. Will monitor closely. No need for CT scan. Case discussed with p ulmonology. Continue IV steroids and supplementation. Continue baricitinib. Monitor liver function test. Patient with thrombocytopenia. Hold Eliquis if platelet count less than 100. Celebrex has been discontinued. Patient on Eliquis for DVT prophylaxis. May need to consider changing to Lovenox. Encourage proning, incentive spirometer. Continue to wean off oxygen. Continue with pulmonology recommendations. We will continue to monitor the patient closely. Hypertension: Continue valsartan. Rheumatoid arthritis: Continue gabapentin. Celebrex discontinued due to thrombocytopenia. Leukocytosis: Likely from steroids. Will monitor closely. Will discuss with pulmonology. Thrombocytopenia: Celebrex discontinued. Hold Eliquis if platelet count less than 100. Continue to monitor closely. Continue monitor the patient closely. DVT prophylaxis: Eliquis CODE STATUS: This was readdressed with the patient. Patient wishes to be full code at this time. Patient was previously DO NOT INTUBATE. Advanced care [id number] minutes: Patient wishes to go home at discharge Time Spent Managing Pts Care (In Minutes): 55
[2021-01-23] MEDS: METHYLPREDNISOLONE 125 MG INJ IV SCH ×3 (06:00→21:17)
[2021-01-23 07:20] LABS: Absolute Lymphocytes (CBC) 0.2 K/uL (0.7-4.9); Basophils % 0.3 % (0-1.3); Hematocrit 41.4 % (39.6-49.0); Lymphocytes % 3.3 % (15.3-44.8); MPV 8.2 fL (7.6-11.3); RBC Red Blood Cell Count 5.41 M/uL (4.33-5.43)
[2021-01-23 08:03] LABS: ALT/SGPT 56 U/L (12-78); AST/SGOT 40 U/L (15-37); Albumin 2.3 g/dL (3.4-5.0); Alkaline Phosphatase 118 U/L (45-117); BUN Blood Urea Nitrogen 27 mg/dL (7-18); Bicarbonate 30 mmol/L (21-32); Bilirubin Total 1.2 mg/dL (0.2-1.0); Ferritin 323.8 ng/mL (26-388); Glucose Level 143 mg/dL (74-106); Potassium 4.7 mmol/L (3.5-5.1); Protein, Total 6.6 g/dL (6.4-8.2); Sodium Level 141 mmol/L (136-145)
--- NOTE | 2021-01-23 08:52 | RAD REPORT ---
EXAM DESCRIPTION: RAD - Chest Single View - 01/23/2021 5:46 am CLINICAL HISTORY: Follow-up Covid Chest pain. COMPARISON: Chest Single View dated 01/20/2021; Chest Single View dated 01/18/2021; Chest Single View dated 01/08/2021; Chest Single View dated 01/05/2021 FINDINGS: Portable technique limits examination quality. Since 01/20/2021, there has been mild improvement in bilateral pulmonary opacities seen. The heart is upper limit of normal in size. No displaced fractures. IMPRESSION: Mild improvement in lung aeration since comparative study.
[2021-01-23] MEDS: MULTIVIT W/ MINERAL TAB PO SCH (09:00)
[2021-01-23] MEDS: VITAMIN D 1000 UNIT TAB PO SCH (10:37)
[2021-01-23] MEDS: BARICITINIB 2 MG TABLET PO SCH (10:37)
[2021-01-23] MEDS: GABAPENTIN 300 MG CAP PO SCH ×3 (10:37→20:18)
[2021-01-23] MEDS: BENZONATATE 100 MG CAP PO PRN (10:37)
[2021-01-23] MEDS: THIAMINE HCL 100 MG TABLET PO SCH (10:37)
[2021-01-23] MEDS: ASCORBIC ACID 500 MG TABLET PO SCH (10:37)
[2021-01-23] MEDS: HYDROCODONE/APAP 10/325 TAB PO SCH ×3 (10:38→20:18)
[2021-01-23] MEDS: APIXABAN 5 MG TABLET PO SCH ×2 (10:38→20:19)
[2021-01-23] MEDS: VALSARTAN 160 MG TAB PO SCH (10:38)
[2021-01-23] MEDS: FAMOTIDINE 20 MG TAB PO SCH ×2 (10:39→20:18)
[2021-01-23] MEDS: ZINC SULFATE 220 MG CAP PO SCH (10:39)
--- NOTE | 2021-01-23 11:30 | P.PN ---
Subjective Date of Service: 01/23/21 Primary Care Provider: unknown Chief Complaint: Respiratory failure Patient was transferred from the floor he develops episodes of severe agitation where he pulls off his nasal cannula in his facemask and has significant desaturation able to eat and drink Review of Systems Respiratory: Shortness of Breath Physical Examination - Vital Signs Temperature: 97.8 F Blood Pressure: 146/96 Pulse: 89 Respirations: 21 Pulse Ox (%): 96 - Physical Exam General: Alert, Cooperative, Delirious - Studies Medications List Reviewed: Yes Assessment & Plan - Problems (Diagnosis) (1) Pneumonia due to COVID-19 virus Current Visit: No Status: Acute Plan: Respiratory failure still requiring high concentrations of oxygen labs reviewed on max treatment chest x-ray shows severe bilateral pneumonia on 100% FiO2
[2021-01-23 16:12] LABS: Protime INR 1.82
[2021-01-23] MEDS: FENOFIBRATE 160 MG TAB PO SCH (17:34)
[2021-01-24] MEDS: MELATONIN 5 MG TABLET PO PRN ×2 (00:43→21:54)
[2021-01-24 05:54] LABS: Absolute Lymphocytes (CBC) 0.2 K/uL (0.7-4.9); Hematocrit 38.8 % (39.6-49.0); Lymphocytes % 5.3 % (15.3-44.8); MPV 8.6 fL (7.6-11.3); RBC Red Blood Cell Count 5.05 M/uL (4.33-5.43)
--- NOTE | 2021-01-24 06:00 | P.PN ---
Subjective Date of Service: 01/24/21 Primary Care Provider: unknown Chief Complaint: COVID-19 pneumonia Subjective: Other (Overall stable. Currently on high flow at 100%) Physical Examination - Vital Signs Temperature: 97.4 F Blood Pressure: 95/55 Pulse: 64 Respirations: 14 Pulse Ox (%): 100 - Studies Microbiology Data (last 24 hrs): 01/18/21 13:40 Blood - Blood Aerobic Blood Culture - Final No growth in 5 days. 01/18/21 13:40 Blood - Blood Anaerobic Blood Culture - Final No growth in 5 days. 01/18/21 13:30 Blood - Blood Aerobic Blood Culture - Final No growth in 5 days. 01/18/21 13:30 Blood - Blood Anaerobic Blood Culture - Final No growth in 5 days. Medications List Reviewed: Yes Assessment & Plan Discharge Plan: Home Plan to discharge in: Greater than 2 days Physician Review Additional Text: COVID: Positive Chest x-ray: COMPARISON: January 08, 2001 FINDINGS: Marked bilateral pulmonary opacities. . The heart is normal size IMPRESSION: Marked bilateral pulmonary opacities have worsened since the prior exam probably pneumonia Follow-up chest x-ray 01/23/2021: COMPARISON: Chest Single View dated 01/20/2021; Chest Single View dated 01/18/2021; Chest Single View dated 01/08/2021; Chest Single View dated 01/05/2021 FINDINGS: Portable technique limits examination quality. Since 01/20/2021, there has been mild improvement in bilateral pulmonary opacities seen. The heart is upper limit of normal in size. No displaced fractures. IMPRESSION: Mild improvement in lung aeration since comparative study. Physical Exam: GENERAL: The patient is a well-developed, well-nourished, in no apparent distress. Alert and oriented x3. VITAL SIGNS: Reviewed HEENT: Neck supple LUNGS: HF 100% HEART: Regular rate and rhythm, no appreciable gallops, rubs, murmurs or extra heart sounds ABDOMEN: Soft, nontender, and nondistended. Positive bowel sounds. No hepatosplenomegaly was noted. EXTREMITIES: Without any cyanosis, clubbing, rash, lesions or peripheral edema. NEUROLOGIC: The patient is oriented to person, place and time. Strength and sensation are grossly intact. Face is symmetric. SKIN: Normal color, turgor and temperature. No ulcerations or rashes noted. Impression: Dyspnea secondary to acute respiratory failure with hypoxia related to bilateral Covid pneumonia with transient Covid encephalopathy Hypertension Rheumatoid arthritis Leukocytosis Thrombocytopenia Plan: Dyspnea secondary to acute respiratory failure with hypoxia related to bilateral Covid pneumonia with transient Covid encephalopathy: Overall stable. No significant change. Currently on high flow at 100%. Patient more alert. Less confusion today. Continue IV steroids and supplementation. Continue baricitinib. Monitor liver function test. Patient with thrombocytopenia. Hold Eliquis if platelet count less than 100. Celebrex has been discontinued. Patient on Eliquis for DVT prophylaxis, hold if platelet less than 100.. May need to consider changing to Lovenox. Encourage proning, incentive spirometer. Continue to wean off oxygen. Continue with pulmonology recommendations. We will continue to monitor the patient closely. Hypertension: Continue valsartan. Rheumatoid arthritis: Continue gabapentin. Celebrex discontinued due to thrombocytopenia. Leukocytosis: Likely from steroids. Will monitor closely. Will discuss with pulmonology. Thrombocytopenia: Celebrex discontinued. Hold Eliquis if platelet count less than 100. Continue to monitor closely. Continue monitor the patient closely. DVT prophylaxis: Eliquis CODE STATUS: This was readdressed with the patient. Patient wishes to be full code at this time. Patient was previously DO NOT INTUBATE. Advanced care [id number] minutes: Patient wishes to go home at discharge Time Spent Managing Pts Care (In Minutes): 55
[2021-01-24] MEDS: METHYLPREDNISOLONE 125 MG INJ IV SCH ×3 (06:12→21:23)
[2021-01-24 06:26] LABS: ALT/SGPT 71 U/L (12-78); AST/SGOT 42 U/L (15-37); Albumin 2.2 g/dL (3.4-5.0); Alkaline Phosphatase 118 U/L (45-117); BUN Blood Urea Nitrogen 25 mg/dL (7-18); Bicarbonate 31 mmol/L (21-32); Ferritin 316.7 ng/mL (26-388); Glucose Level 151 mg/dL (74-106); Magnesium 1.8 mg/dL (1.8-2.4); Potassium 4.7 mmol/L (3.5-5.1); Protein, Total 6.3 g/dL (6.4-8.2); Sodium Level 139 mmol/L (136-145)
--- NOTE | 2021-01-24 07:47 | RAD REPORT ---
EXAM DESCRIPTION: Nan Single View01/24/2021 7:11 am CLINICAL HISTORY: Shortness of breath COMPARISON: January 23 FINDINGS: No significant change in diffuse bilateral pulmonary opacities. Heart is mildly enlarged IMPRESSION: No significant change bilateral pneumonia
[2021-01-24] MEDS: BARICITINIB 2 MG TABLET PO SCH (09:50)
[2021-01-24] MEDS: VITAMIN D 1000 UNIT TAB PO SCH (09:50)
[2021-01-24] MEDS: THIAMINE HCL 100 MG TABLET PO SCH (09:51)
[2021-01-24] MEDS: HYDROCODONE/APAP 10/325 TAB PO SCH ×3 (09:51→21:22)
[2021-01-24] MEDS: ASCORBIC ACID 500 MG TABLET PO SCH (09:52)
[2021-01-24] MEDS: FAMOTIDINE 20 MG TAB PO SCH ×2 (09:52→21:23)
[2021-01-24] MEDS: ZINC SULFATE 220 MG CAP PO SCH (09:52)
[2021-01-24] MEDS: VALSARTAN 160 MG TAB PO SCH (09:53)
[2021-01-24] MEDS: GABAPENTIN 300 MG CAP PO SCH ×3 (09:53→21:23)
[2021-01-24] MEDS: APIXABAN 5 MG TABLET PO SCH ×2 (09:53→21:00)
[2021-01-24] MEDS: MULTIVIT W/ MINERAL TAB PO SCH (10:26)
[2021-01-24 10:29] LABS: Anisocytosis 1+; Blood Morphology Comment NOTED (NOT SEEN); Platelet Estimate DECR; Platelets, Giant FEW PRESENT; White Blood Cell Scan OK (OK)
[2021-01-24] MEDS ORDERED: PROMETHAZINE-DM 5 ML OSYR PO PRN (12:03)
--- NOTE | 2021-01-24 12:08 | P.PN ---
Subjective Date of Service: 01/24/21 Primary Care Provider: unknown Chief Complaint: COVID-19 pneumonia Respiratory failure patient is looking better he is able to communicate complaining of severe coughing spells still on high concentrations of oxygen Review of Systems General: Weakness Respiratory: Shortness of Breath Physical Examination - Vital Signs Temperature: 97.7 F Blood Pressure: 137/76 Pulse: 103 Respirations: 23 Pulse Ox (%): 88 - Physical Exam General: Alert, Oriented x3, Cooperative, Mild distress - Studies Microbiology Data (last 24 hrs): 01/18/21 13:40 Blood - Blood Aerobic Blood Culture - Final No growth in 5 days. 01/18/21 13:40 Blood - Blood Anaerobic Blood Culture - Final No growth in 5 days. 01/18/21 13:30 Blood - Blood Aerobic Blood Culture - Final No growth in 5 days. 01/18/21 13:30 Blood - Blood Anaerobic Blood Culture - Final No growth in 5 days. Medications List Reviewed: Yes Assessment & Plan - Problems (Diagnosis) (1) Pneumonia due to COVID-19 virus Current Visit: No Status: Acute Plan: Respiratory failure respiratory failure secondary to Covid pneumonia chest x-ray no significant change complains of severe coughing spells are better promethazine with codeine patient is on patient is on maximal therapy trial of 1 dose trial of 1 dose of Lasix
[2021-01-24] MEDS: FUROSEMIDE 20 MG/ 2ML VIAL IV SCH (13:27)
[2021-01-24] MEDS: FENOFIBRATE 160 MG TAB PO SCH (17:05)
--- NOTE | 2021-01-25 05:54 | P.PN ---
Subjective Date of Service: 01/25/21 Primary Care Provider: unknown Chief Complaint: COVID-19 pneumonia Subjective: Other (Overall stable. Currently on 100% high flow) Physical Examination - Vital Signs Temperature: 98.4 F Blood Pressure: 116/60 Pulse: 74 Respirations: 18 Pulse Ox (%): 96 - Studies Medications List Reviewed: Yes Assessment & Plan Discharge Plan: Home Plan to discharge in: Greater than 2 days Physician Review Additional Text: COVID: Positive Chest x-ray: COMPARISON: January 08, 2001 FINDINGS: Marked bilateral pulmonary opacities. . The heart is normal size IMPRESSION: Marked bilateral pulmonary opacities have worsened since the prior exam probably pneumonia Follow-up chest x-ray 01/23/2021: COMPARISON: Chest Single View dated 01/20/2021; Chest Single View dated 01/18/2021; Chest Single View dated 01/08/2021; Chest Single View dated 01/05/2021 FINDINGS: Portable technique limits examination quality. Since 01/20/2021, there has been mild improvement in bilateral pulmonary opacities seen. The heart is upper limit of normal in size. No displaced fractures. IMPRESSION: Mild improvement in lung aeration since comparative study. Physical Exam: GENERAL: The patient is a well-developed, well-nourished, in no apparent distress. Alert and oriented x3. VITAL SIGNS: Reviewed HEENT: Neck supple LUNGS: HF 100% HEART: Regular rate and rhythm, no appreciable gallops, rubs, murmurs or extra heart sounds ABDOMEN: Soft, nontender, and nondistended. Positive bowel sounds. No hepatosplenomegaly was noted. EXTREMITIES: Without any cyanosis, clubbing, rash, lesions or peripheral edema. NEUROLOGIC: The patient is oriented to person, place and time. Strength and sensation are grossly intact. Face is symmetric. SKIN: Normal color, turgor and temperature. No ulcerations or rashes noted. Impression: Dyspnea secondary to acute respiratory failure with hypoxia related to bilateral Covid pneumonia with transient Covid encephalopathy Hypertension Rheumatoid arthritis Leukocytosis Thrombocytopenia Plan: Dyspnea secondary to acute respiratory failure with hypoxia related to bilateral Covid pneumonia with transient Covid encephalopathy: Patient remained stable. No significant change since yesterday. Currently on high flow at 100%. Patient appears depressed. His yesterday with Covid. Continue IV steroids and supplementation. Continue baricitinib. Monitor liver function test. Patient with thrombocytopenia but this is improved. Hold Eliquis if platelet count less than 100. Celebrex has been discontinued. Patient on Eliquis for DVT prophylaxis, hold if platelet less than 100.. May need to consider changing to Lovenox. Encourage proning, incentive spirometer. Continue to wean off oxygen. Continue with pulmonology recommendations. We will continue to monitor the patient closely. I will turn the service over to the Hospitalist tomorrow. I will go over the plan of care with him. Hypertension: Continue valsartan. Rheumatoid arthritis: Continue gabapentin. Celebrex discontinued due to thrombocytopenia. Leukocytosis: Likely from steroids. Will monitor closely. Will discuss with pulmonology. Thrombocytopenia: Celebrex discontinued. Hold Eliquis if platelet count less than 100. Continue to monitor closely. Continue monitor the patient closely. DVT prophylaxis: Eliquis CODE STATUS: This was readdressed with the patient. Patient wishes to be full code at this time. Patient was previously DO NOT INTUBATE. Advanced care [id number] minutes: Patient wishes to go home at discharge Time Spent Managing Pts Care (In Minutes): 55
[2021-01-25] MEDS: METHYLPREDNISOLONE 125 MG INJ IV SCH ×3 (06:04→21:30)
[2021-01-25 06:27] LABS: Absolute Lymphocytes (CBC) 0.4 K/uL (0.7-4.9); Basophils % 0.1 % (0-1.3); Hematocrit 39.5 % (39.6-49.0); Lymphocytes % 6.1 % (15.3-44.8); MPV 8.6 fL (7.6-11.3); RBC Red Blood Cell Count 5.21 M/uL (4.33-5.43)
[2021-01-25 06:34] LABS: ALT/SGPT 90 U/L (12-78); AST/SGOT 50 U/L (15-37); Albumin 2.2 g/dL (3.4-5.0); Alkaline Phosphatase 114 U/L (45-117); BUN Blood Urea Nitrogen 24 mg/dL (7-18); Bicarbonate 33 mmol/L (21-32); Bilirubin Total 1.2 mg/dL (0.2-1.0); Ferritin 342.1 ng/mL (26-388); Glucose Level 120 mg/dL (74-106); Magnesium 1.7 mg/dL (1.8-2.4); Potassium 4.3 mmol/L (3.5-5.1); Protein, Total 6.3 g/dL (6.4-8.2); Sodium Level 138 mmol/L (136-145)
--- NOTE | 2021-01-25 07:27 | RAD REPORT ---
EXAM DESCRIPTION: RAD - Chest Single View - 01/25/2021 6:40 am CLINICAL HISTORY: Follow up COVID COMPARISON: Chest Single View dated 01/24/2021; Chest Single View dated 01/23/2021; Chest Single View da p[place] 01/20/2021; Chest Single View dated 01/18/2021 FINDINGS: Lines: None. Lungs: Widespread bilateral airspace disease without significant interval change. Pleural: No significant pleural effusions or pneumothorax. Cardiac: Cardiomegaly. Bones: No acute fractures. Other: IMPRESSION: Similar widespread bilateral airspace disease concerning for multifocal pneumonia.
[2021-01-25] MEDS: MULTIVIT W/ MINERAL TAB PO SCH (10:24)
[2021-01-25] MEDS: GABAPENTIN 300 MG CAP PO SCH ×3 (10:24→20:30)
[2021-01-25] MEDS: VITAMIN D 1000 UNIT TAB PO SCH (10:24)
[2021-01-25] MEDS: BARICITINIB 2 MG TABLET PO SCH (10:24)
[2021-01-25] MEDS: APIXABAN 5 MG TABLET PO SCH ×2 (10:25→20:31)
[2021-01-25] MEDS: ASCORBIC ACID 500 MG TABLET PO SCH (10:25)
[2021-01-25] MEDS: HYDROCODONE/APAP 10/325 TAB PO SCH ×3 (10:25→20:30)
[2021-01-25] MEDS: THIAMINE HCL 100 MG TABLET PO SCH (10:25)
[2021-01-25] MEDS: FAMOTIDINE 20 MG TAB PO SCH ×2 (10:25→20:30)
[2021-01-25] MEDS: ZINC SULFATE 220 MG CAP PO SCH (10:25)
[2021-01-25] MEDS: VALSARTAN 160 MG TAB PO SCH (10:26)
[2021-01-25] MEDS: FUROSEMIDE 20 MG/ 2ML VIAL IV SCH (10:29)
[2021-01-25] MEDS: FENOFIBRATE 160 MG TAB PO SCH (16:16)
--- NOTE | 2021-01-25 19:08 | P.PN ---
Subjective Date of Service: 01/25/21 Primary Care Provider: unknown Chief Complaint: COVID-19 pneumonia Resp failure on high conc of Fio2 Review of Systems General: Weakness Respiratory: Shortness of Breath Physical Examination - Vital Signs Temperature: 98.3 F Blood Pressure: 100/56 Pulse: 91 Respirations: 20 Pulse Ox (%): 91 - Physical Exam General: Alert, Oriented x3, Cooperative - Studies Medications List Reviewed: Yes Assessment & Plan - Problems (Diagnosis) (1) Pneumonia due to COVID-19 virus Current Visit: No Status: Acute Plan: Resp failure/ NC on max therapy
[2021-01-25] MEDS: MELATONIN 5 MG TABLET PO PRN (20:30)
[2021-01-26 05:03] LABS: Absolute Lymphocytes (CBC) 0.2 K/uL (0.7-4.9); Basophils % 0.2 % (0-1.3); Hematocrit 39.4 % (39.6-49.0); Lymphocytes % 3.2 % (15.3-44.8); MPV 8.3 fL (7.6-11.3); RBC Red Blood Cell Count 5.14 M/uL (4.33-5.43)
[2021-01-26 05:47] LABS: ALT/SGPT 130 U/L (12-78); AST/SGOT 68 U/L (15-37); Albumin 2.3 g/dL (3.4-5.0); Alkaline Phosphatase 127 U/L (45-117); BUN Blood Urea Nitrogen 25 mg/dL (7-18); Bicarbonate 33 mmol/L (21-32); Glucose Level 198 mg/dL (74-106); Magnesium 1.8 mg/dL (1.8-2.4); Potassium 4.2 mmol/L (3.5-5.1); Protein, Total 6.3 g/dL (6.4-8.2); Sodium Level 138 mmol/L (136-145)
[2021-01-26] MEDS: METHYLPREDNISOLONE 125 MG INJ IV SCH (06:00)
--- NOTE | 2021-01-26 08:57 | RAD REPORT ---
EXAM DESCRIPTION: Nan Single View01/26/2021 6:34 am CLINICAL HISTORY: Shortness breath COMPARISON: January 25 FINDINGS: No significant change in bilateral pulmonary opacities. The heart is normal size IMPRESSION: No significant change in the bilateral pneumonia
[2021-01-26] MEDS: VALSARTAN 160 MG TAB PO SCH (09:08)
[2021-01-26] MEDS: APIXABAN 5 MG TABLET PO SCH ×2 (09:09→20:08)
[2021-01-26] MEDS: HYDROCODONE/APAP 10/325 TAB PO SCH ×3 (09:09→20:08)
[2021-01-26] MEDS: BARICITINIB 2 MG TABLET PO SCH (09:09)
[2021-01-26] MEDS: VITAMIN D 1000 UNIT TAB PO SCH (09:09)
[2021-01-26] MEDS: MULTIVIT W/ MINERAL TAB PO SCH (09:09)
[2021-01-26] MEDS: ZINC SULFATE 220 MG CAP PO SCH (09:10)
[2021-01-26] MEDS: ASCORBIC ACID 500 MG TABLET PO SCH (09:10)
[2021-01-26] MEDS: FUROSEMIDE 20 MG/ 2ML VIAL IV SCH (09:11)
[2021-01-26] MEDS: THIAMINE HCL 100 MG TABLET PO SCH (09:11)
[2021-01-26] MEDS: GABAPENTIN 300 MG CAP PO SCH ×3 (09:11→20:08)
[2021-01-26] MEDS: FAMOTIDINE 20 MG TAB PO SCH ×2 (09:11→20:09)
--- NOTE | 2021-01-26 11:01 | P.PN ---
Subjective Date of Service: 01/26/21 Primary Care Provider: unknown Chief Complaint: COVID-19 pneumonia Patient is feeling well although is on high concentrations of oxygen very jovial Review of Systems General: Weakness Respiratory: Shortness of Breath Physical Examination - Vital Signs Temperature: 97.9 F Blood Pressure: 103/53 Pulse: 99 Respirations: 16 Pulse Ox (%): 100 - Physical Exam General: Alert, Oriented x3, Cooperative - Studies Medications List Reviewed: Yes Assessment & Plan - Problems (Diagnosis) (1) Pneumonia due to COVID-19 virus Current Visit: No Status: Acute Plan: Respiratory failure still on quite a lot of oxygen. White count mildly elevated his got a slight microcytic anemia kidney function is normal no change in bilateral pneumonia on the x-ray on max therapy reduce Solu-Medrol to 40 mg IV every 8
[2021-01-26] MEDS: METHYLPREDNISOLONE 40 MG INJ IV SCH ×2 (12:25→20:08)
[2021-01-26] MEDS: FENOFIBRATE 160 MG TAB PO SCH (16:59)
[2021-01-26] MEDS ORDERED: NA CHLORIDE 0.9% 500 ML IV ONE (23:30)
[2021-01-26] MEDS ORDERED: NA CHLORIDE 0.9% 500 ML ONE (23:56)
[2021-01-27] MEDS: METHYLPREDNISOLONE 40 MG INJ IV SCH ×3 (04:18→20:01)
[2021-01-27 07:33] LABS: Hematocrit 39.4 % (39.6-49.0); MPV 8.5 fL (7.6-11.3); RBC Red Blood Cell Count 5.07 M/uL (4.33-5.43)
[2021-01-27 07:58] LABS: BUN Blood Urea Nitrogen 25 mg/dL (7-18); Bicarbonate 37 mmol/L (21-32); Glucose Level 133 mg/dL (74-106); Potassium 4.3 mmol/L (3.5-5.1); Sodium Level 140 mmol/L (136-145)
--- NOTE | 2021-01-27 09:09 | P.PN ---
Subjective Date of Service: 01/26/21 Patient's chart was reviewed. Patient is well known to me from prior admissions for similar issues. Patient is been doing poorly. His recently. Patient has been on AIRVO for a few days now. Will need to start weaning this down. Review of Systems 10-point ROS is otherwise unremarkable Physical Examination - Vital Signs Temperature: 97.9 F Blood Pressure: 110/59 Pulse: 63 Respirations: 11 Pulse Ox (%): 100 - Physical Exam General: Alert, In no apparent distress, Oriented x3 Respiratory: Diminished Cardiovascular: Regular rate/rhythm, Normal S1 S2, No murmurs Gastrointestinal: Normal bowel sounds, Soft and benign, Non-distended, No tenderness Musculoskeletal: No clubbing, No swelling, No tenderness Neurological: Sensation intact, Cranial nerves 3-12 intact - Studies Medications List Reviewed: Yes Assessment & Plan - Problems (Diagnosis) (1) Pneumonia due to COVID-19 virus Current Visit: No Status: Acute (2) History of rheumatoid arthritis Current Visit: No Status: Acute (3) Hypoxemia Current Visit: No Status: Acute - Plan 1. Continue with IV steroids 2. Monitor inflammatory markers 3. Repeat chest x-ray 4. O2 per protocol 5. Pulmonary consultation obtained 6. Continue with neb treatments 7. Monitor LFTs 8. GI and DVT prophylaxis Discharge Plan: Home Plan to discharge in: Greater than 2 days - Advance Directives Does patient have a Living Will: No Does patient have a Durable POA for Healthcare: No - Code Status/Comfort Care Code Status: Full Code Critical Care: Yes Time Spent Managing PTS Care (In Minutes): 45
--- NOTE | 2021-01-27 09:10 | P.PN ---
Date of Service: 01/27/21 Subjective Patient remains very tachypneic and depressed. Continue on oxygen support. Continuing ICU. Patient having a hard time dealing with his 's passing Review of Systems 10-point ROS is otherwise unremarkable Physical Examination - Vital Signs Reviewed - Physical Exam General: Alert, In no apparent distress, Oriented x3 Respiratory: Diminished Cardiovascular: Regular rate/rhythm, Normal S1 S2, No murmurs Gastrointestinal: Normal bowel sounds, Soft and benign, Non-distended, No tenderness Musculoskeletal: No clubbing, No swelling, No tenderness Neurological: No focal deficits Assessment & Plan - Problems (Diagnosis) (1) Pneumonia due to COVID-19 virus Current Visit: No Status: Acute (2) History of rheumatoid arthritis Current Visit: No Status: Acute (3) Hypoxemia Current Visit: No Status: Acute - Plan Continue with plan of care as mentioned below: 1. Continue with IV steroids 2. Continue monitoring labs 3. Repeat chest x-ray 4. O2 per protocol 5. Pulmonary consultation obtained 6. Continue with neb treatments 7. GI and DVT prophylaxis
[2021-01-27] MEDS: ASCORBIC ACID 500 MG TABLET PO SCH (09:51)
[2021-01-27] MEDS: MULTIVIT W/ MINERAL TAB PO SCH (09:51)
[2021-01-27] MEDS: VITAMIN D 1000 UNIT TAB PO SCH (09:51)
[2021-01-27] MEDS: GABAPENTIN 300 MG CAP PO SCH ×3 (09:51→20:01)
[2021-01-27] MEDS: HYDROCODONE/APAP 10/325 TAB PO SCH ×3 (09:52→20:02)
[2021-01-27] MEDS: FUROSEMIDE 20 MG/ 2ML VIAL IV SCH (09:52)
[2021-01-27] MEDS: VALSARTAN 160 MG TAB PO SCH (09:52)
[2021-01-27] MEDS: APIXABAN 5 MG TABLET PO SCH ×2 (09:53→20:02)
[2021-01-27] MEDS: FAMOTIDINE 20 MG TAB PO SCH ×2 (09:53→20:02)
[2021-01-27] MEDS: ZINC SULFATE 220 MG CAP PO SCH (09:53)
[2021-01-27] MEDS: THIAMINE HCL 100 MG TABLET PO SCH (09:53)
[2021-01-27] MEDS: BARICITINIB 2 MG TABLET PO SCH (09:53)
--- NOTE | 2021-01-27 12:04 | P.PN ---
Subjective Date of Service: 01/27/21 Primary Care Provider: unknown Chief Complaint: COVID-19 pneumonia Respiratory failure respiratory failure no change requiring high concentrations of oxygen still very alert Review of Systems Unremarkable Physical Examination - Vital Signs Temperature: 97.9 F Blood Pressure: 109/53 Pulse: 104 Respirations: 22 Pulse Ox (%): 88 - Physical Exam General: Alert, Oriented x3, Cooperative - Studies Medications List Reviewed: Yes Assessment & Plan - Problems (Diagnosis) (1) Pneumonia due to COVID-19 virus Current Visit: No Status: Acute Plan: Respiratory failure respiratory failure no change still requiring high concentrations of oxygen labs reviewed labs reviewed white count is normal on maximal therapy on maximal therapy
[2021-01-27] MEDS: FENOFIBRATE 160 MG TAB PO SCH (16:53)
[2021-01-27] MEDS: MELATONIN 5 MG TABLET PO PRN (20:06)
[2021-01-28 04:46] LABS: Hematocrit 38.9 % (39.6-49.0); MPV 8.4 fL (7.6-11.3); RBC Red Blood Cell Count 5.08 M/uL (4.33-5.43)
[2021-01-28 05:05] LABS: BUN Blood Urea Nitrogen 26 mg/dL (7-18); Bicarbonate 37 mmol/L (21-32); Glucose Level 162 mg/dL (74-106); Potassium 4.3 mmol/L (3.5-5.1); Sodium Level 140 mmol/L (136-145)
[2021-01-28] MEDS: ZINC SULFATE 220 MG CAP PO SCH (09:06)
[2021-01-28] MEDS: HYDROCODONE/APAP 10/325 TAB PO SCH ×3 (09:06→20:05)
[2021-01-28] MEDS: FUROSEMIDE 20 MG/ 2ML VIAL IV SCH (09:06)
[2021-01-28] MEDS: THIAMINE HCL 100 MG TABLET PO SCH (09:07)
[2021-01-28] MEDS: MULTIVIT W/ MINERAL TAB PO SCH (09:07)
[2021-01-28] MEDS: FAMOTIDINE 20 MG TAB PO SCH ×2 (09:07→20:05)
[2021-01-28] MEDS: VALSARTAN 160 MG TAB PO SCH (09:07)
[2021-01-28] MEDS: APIXABAN 5 MG TABLET PO SCH ×2 (09:07→20:08)
[2021-01-28] MEDS: VITAMIN D 1000 UNIT TAB PO SCH (09:07)
[2021-01-28] MEDS: ASCORBIC ACID 500 MG TABLET PO SCH (09:07)
[2021-01-28] MEDS: BARICITINIB 2 MG TABLET PO SCH (09:08)
[2021-01-28] MEDS: METHYLPREDNISOLONE 40 MG INJ IV SCH ×2 (09:08→20:04)
[2021-01-28] MEDS: GABAPENTIN 300 MG CAP PO SCH ×3 (09:10→20:08)
--- NOTE | 2021-01-28 11:40 | P.PN ---
Subjective Date of Service: 01/28/21 Primary Care Provider: unknown Chief Complaint: COVID-19 pneumonia O2 requirement decreasing/ No new complaints Review of Systems Respiratory: Shortness of Breath Physical Examination - Vital Signs Temperature: 97.1 F Blood Pressure: 112/61 Pulse: 83 Respirations: 15 Pulse Ox (%): 100 - Physical Exam General: Alert, Oriented x3, Cooperative, Moderate distress - Studies Medications List Reviewed: Yes Assessment & Plan - Problems (Diagnosis) (1) Pneumonia due to COVID-19 virus Current Visit: No Status: Acute Plan: Improving cont to titrate Fio2 down.labs rev/ on max Tx/add diflucan to dec risk of fungal infection
[2021-01-28] MEDS: FLUCONAZOLE 100 MG TAB PO SCH (11:49)
[2021-01-28] MEDS: FENOFIBRATE 160 MG TAB PO SCH (17:19)
[2021-01-28] MEDS: MELATONIN 5 MG TABLET PO PRN (20:04)
[2021-01-29 05:08] LABS: Absolute Lymphocytes (CBC) 0.4 K/uL (0.7-4.9); Basophils % 0.2 % (0-1.3); Hematocrit 39.2 % (39.6-49.0); Lymphocytes % 2.9 % (15.3-44.8); MPV 8.4 fL (7.6-11.3); RBC Red Blood Cell Count 5.08 M/uL (4.33-5.43)
[2021-01-29 05:27] LABS: ALT/SGPT 108 U/L (12-78); AST/SGOT 41 U/L (15-37); Albumin 2.6 g/dL (3.4-5.0); Alkaline Phosphatase 121 U/L (45-117); BUN Blood Urea Nitrogen 28 mg/dL (7-18); Bicarbonate 37 mmol/L (21-32); Bilirubin Total 0.8 mg/dL (0.2-1.0); C-Reactive Protein 5.22 mg/L (<3.00); Ferritin 353.3 ng/mL (26-388); Glucose Level 160 mg/dL (74-106); Potassium 4.3 mmol/L (3.5-5.1); Protein, Total 6.4 g/dL (6.4-8.2); Sodium Level 139 mmol/L (136-145)
[2021-01-29 08:51] LABS: Blood Morphology Comment NOT SEEN (NOT SEEN); Platelet Estimate ADEQ
--- NOTE | 2021-01-29 08:59 | RAD REPORT ---
EXAM DESCRIPTION: RAD - Chest Single View - 01/29/2021 8:33 am CLINICAL HISTORY: pneumonia COMPARISON: January 26 TECHNIQUE: AP portable chest image was obtained 01/29/2021 8:33 am . FINDINGS: Interstitial and alveolar opacities are present in both lung spicer. Findings are not subs tantially different from the comparison study. No progressive process. Heart and vasculature are normal. No measurable pleural effusion and no pneumothorax. No acute bony abnormality seen. No acute aortic findings suspected. IMPRESSION: Bilateral pneumonia findings not substantially different from January 26.
[2021-01-29] MEDS: BARICITINIB 2 MG TABLET PO SCH (09:00)
--- NOTE | 2021-01-29 09:22 | P.PN ---
Date of Service: 01/28/21 Subjective Patient feeling better. Had a large bowel movement and clinically feeling much better afterwards. Otherwise, no new complaints. Review of Systems 10-point ROS is otherwise unremarkable Physical Examination - Vital Signs Reviewed - Physical Exam General: Alert, In no apparent distress, Oriented x3 Respiratory: Diminished Cardiovascular: Regular rate/rhythm, Normal S1 S2, No murmurs Gastrointestinal: Normal bowel sounds, Soft and benign, Non-distended, No tenderness Musculoskeletal: No clubbing, No swelling, No tenderness Neurological: Sensation intact, Cranial nerves 3-12 intact Assessment & Plan - Problems (Diagnosis) (1) Pneumonia due to COVID-19 virus Current Visit: No Status: Acute (2) History of rheumatoid arthritis Current Visit: No Status: Acute (3) Hypoxemia Current Visit: No Status: Acute - Plan Continue with plan of care as mentioned below: 1. Continue with IV steroids 2. Monitor inflammatory markers 3. Repeat chest x-ray 4. Patient on high-flow oxygen along with occasional use of non-rebreather over the high-flow. 5. Continue with range of motion and out of bed as tolerated 6. Continue with neb treatments 7. Monitor LFTs 8. GI and DVT prophylaxis
--- NOTE | 2021-01-29 09:28 | P.PN ---
Date of Service: 01/29/21 Subjective Clinically, patient continues to show some improvement. Hopefully, we can start weaning down his oxygen requirements. Review of Systems 10-point ROS is otherwise unremarkable Physical Examination - Vital Signs Reviewed - Physical Exam General: Alert, In no apparent distress, Oriented x3 Respiratory: Diminished Cardiovascular: Regular rate/rhythm, Normal S1 S2, No murmurs Gastrointestinal: Normal bowel sounds, Soft and benign, Non-distended, No tenderness Musculoskeletal: No clubbing, No swelling, No tenderness Neurological: Sensation intact, Cranial nerves 3-12 intact Assessment & Plan - Problems (Diagnosis) (1) Pneumonia due to COVID-19 virus Current Visit: No Status: Acute (2) History of rheumatoid arthritis Current Visit: No Status: Acute (3) Hypoxemia Current Visit: No Status: Acute - Plan Continue with plan of care as mentioned below: 1. Continue with IV steroids; tapering dosage 2. Monitor inflammatory markers 3. Repeat chest x-ray 4. Patient on high-flow oxygen along with occasional use of non-rebreather over the high-flow. 5. Continue with range of motion and out of bed as tolerated 6. Continue with neb treatments 7. Monitor LFTs 8. GI and DVT prophylaxis
[2021-01-29] MEDS: FUROSEMIDE 20 MG/ 2ML VIAL IV SCH (09:31)
[2021-01-29] MEDS: VITAMIN D 1000 UNIT TAB PO SCH (09:32)
[2021-01-29] MEDS: THIAMINE HCL 100 MG TABLET PO SCH (09:33)
[2021-01-29] MEDS: FAMOTIDINE 20 MG TAB PO SCH ×2 (09:33→20:56)
[2021-01-29] MEDS: ASCORBIC ACID 500 MG TABLET PO SCH (09:33)
[2021-01-29] MEDS: METHYLPREDNISOLONE 40 MG INJ IV SCH ×2 (09:33→20:58)
[2021-01-29] MEDS: FLUCONAZOLE 100 MG TAB PO SCH (09:33)
[2021-01-29] MEDS: GABAPENTIN 300 MG CAP PO SCH ×3 (09:34→20:56)
[2021-01-29] MEDS: MULTIVIT W/ MINERAL TAB PO SCH (09:34)
[2021-01-29] MEDS: APIXABAN 5 MG TABLET PO SCH ×2 (09:34→20:57)
[2021-01-29] MEDS: ZINC SULFATE 220 MG CAP PO SCH (09:34)
[2021-01-29] MEDS: VALSARTAN 160 MG TAB PO SCH (09:34)
[2021-01-29] MEDS: HYDROCODONE/APAP 10/325 TAB PO SCH ×3 (09:35→20:57)
[2021-01-29] MEDS: FENOFIBRATE 160 MG TAB PO SCH (17:02)
[2021-01-30 06:36] LABS: Hematocrit 41.9 % (39.6-49.0); RBC Red Blood Cell Count 5.37 M/uL (4.33-5.43)
[2021-01-30 06:37] LABS: Absolute Lymphocytes (CBC) 0.3 K/uL (0.7-4.9); Basophils % 0.2 % (0-1.3); MPV 8.2 fL (7.6-11.3)
[2021-01-30 07:04] LABS: Albumin 2.9 g/dL (3.4-5.0); Bilirubin Total 1.2 mg/dL (0.2-1.0); C-Reactive Protein 3.99 mg/L (<3.00); Ferritin 423.3 ng/mL (26-388); Potassium 4.9 mmol/L (3.5-5.1); Protein, Total 6.8 g/dL (6.4-8.2)
[2021-01-30] MEDS: VALSARTAN 160 MG TAB PO SCH (08:59)
[2021-01-30] MEDS: FLUCONAZOLE 100 MG TAB PO SCH (09:00)
[2021-01-30] MEDS: VITAMIN D 1000 UNIT TAB PO SCH (09:00)
[2021-01-30] MEDS: FUROSEMIDE 20 MG/ 2ML VIAL IV SCH (09:00)
[2021-01-30] MEDS: ASCORBIC ACID 500 MG TABLET PO SCH (09:01)
[2021-01-30] MEDS: FAMOTIDINE 20 MG TAB PO SCH ×2 (09:01→19:58)
[2021-01-30] MEDS: APIXABAN 5 MG TABLET PO SCH ×2 (09:01→19:58)
[2021-01-30] MEDS: METHYLPREDNISOLONE 40 MG INJ IV SCH ×2 (09:01→19:59)
[2021-01-30] MEDS: THIAMINE HCL 100 MG TABLET PO SCH (09:01)
[2021-01-30] MEDS: MULTIVIT W/ MINERAL TAB PO SCH (09:01)
[2021-01-30] MEDS: GABAPENTIN 300 MG CAP PO SCH ×3 (09:01→20:00)
[2021-01-30] MEDS: ZINC SULFATE 220 MG CAP PO SCH (09:01)
[2021-01-30] MEDS: BARICITINIB 2 MG TABLET PO SCH (09:01)
[2021-01-30] MEDS: HYDROCODONE/APAP 10/325 TAB PO SCH ×3 (09:02→19:58)
[2021-01-30 09:22] LABS: Blood Morphology Comment NOT SEEN (NOT SEEN); Platelet Estimate INCR; White Blood Cell Scan OK (OK)
--- NOTE | 2021-01-30 12:16 | P.PN ---
Subjective Date of Service: 01/30/21 Primary Care Provider: unknown Chief Complaint: COVID-19 pneumonia No change he feels better although he still requiring high concentrations of oxygen eating and drinking Review of Systems 10-point ROS is otherwise unremarkable Physical Examination - Vital Signs Temperature: 98.4 F Blood Pressure: 121/70 Pulse: 96 Respirations: 24 Pulse Ox (%): 91 - Physical Exam General: Alert, In no apparent distress, Oriented x3 - Studies Medications List Reviewed: Yes Assessment & Plan - Problems (Diagnosis) (1) Pneumonia due to COVID-19 virus Current Visit: No Status: Acute Plan: Respiratory failure on high concentrations of oxygen very alert responsive c ooperative no change in present medication
[2021-01-30] MEDS: FENOFIBRATE 160 MG TAB PO SCH (17:12)
[2021-01-30] MEDS: MELATONIN 5 MG TABLET PO PRN (19:57)
[2021-01-30] MEDS: BENZONATATE 100 MG CAP PO PRN (19:58)
[2021-01-31 07:11] LABS: Absolute Lymphocytes (CBC) 0.4 K/uL (0.7-4.9); Basophils % 0.1 % (0-1.3); Hematocrit 42.7 % (39.6-49.0); Lymphocytes % 2.5 % (15.3-44.8); MPV 8.2 fL (7.6-11.3); RBC Red Blood Cell Count 5.51 M/uL (4.33-5.43)
[2021-01-31 07:31] LABS: Bilirubin Total 1.3 mg/dL (0.2-1.0); C-Reactive Protein 4.06 mg/L (<3.00); Ferritin 474.6 ng/mL (26-388); Potassium 5.1 mmol/L (3.5-5.1); Protein, Total 7.1 g/dL (6.4-8.2)
[2021-01-31] MEDS: FLUCONAZOLE 100 MG TAB PO SCH (08:51)
[2021-01-31] MEDS: MULTIVIT W/ MINERAL TAB PO SCH (08:51)
[2021-01-31] MEDS: VALSARTAN 160 MG TAB PO SCH (08:52)
[2021-01-31] MEDS: APIXABAN 5 MG TABLET PO SCH ×2 (08:52→20:53)
[2021-01-31] MEDS: GABAPENTIN 300 MG CAP PO SCH ×3 (08:53→20:51)
[2021-01-31] MEDS: FUROSEMIDE 20 MG/ 2ML VIAL IV SCH (08:53)
[2021-01-31] MEDS: HYDROCODONE/APAP 10/325 TAB PO SCH ×2 (08:53→14:12)
[2021-01-31] MEDS: METHYLPREDNISOLONE 40 MG INJ IV SCH ×2 (08:55→20:52)
[2021-01-31] MEDS: FAMOTIDINE 20 MG TAB PO SCH ×2 (08:55→20:51)
[2021-01-31] MEDS: BARICITINIB 2 MG TABLET PO SCH (08:55)
[2021-01-31] MEDS: ASCORBIC ACID 500 MG TABLET PO SCH (08:56)
[2021-01-31] MEDS: THIAMINE HCL 100 MG TABLET PO SCH (08:56)
[2021-01-31] MEDS: ZINC SULFATE 220 MG CAP PO SCH (08:56)
[2021-01-31] MEDS: VITAMIN D 1000 UNIT TAB PO SCH (08:56)
[2021-01-31] MEDS: FENOFIBRATE 160 MG TAB PO SCH (16:03)
[2021-01-31] MEDS: BENZONATATE 100 MG CAP PO PRN (20:52)
[2021-02-01 04:14] LABS: Hematocrit 41.7 % (39.6-49.0); MPV 8.1 fL (7.6-11.3)
[2021-02-01] MEDS: FUROSEMIDE 20 MG/ 2ML VIAL IV SCH (08:27)
[2021-02-01] MEDS: ASCORBIC ACID 500 MG TABLET PO SCH (08:28)
[2021-02-01] MEDS: GABAPENTIN 300 MG CAP PO SCH ×3 (08:28→21:14)
[2021-02-01] MEDS: FAMOTIDINE 20 MG TAB PO SCH ×2 (08:28→21:15)
[2021-02-01] MEDS: ZINC SULFATE 220 MG CAP PO SCH (08:28)
[2021-02-01] MEDS: THIAMINE HCL 100 MG TABLET PO SCH (08:28)
[2021-02-01] MEDS: MULTIVIT W/ MINERAL TAB PO SCH (08:28)
[2021-02-01] MEDS: METHYLPREDNISOLONE 40 MG INJ IV SCH ×2 (08:28→21:12)
[2021-02-01] MEDS: FLUCONAZOLE 100 MG TAB PO SCH (08:28)
[2021-02-01] MEDS: VALSARTAN 160 MG TAB PO SCH (08:29)
[2021-02-01] MEDS: APIXABAN 5 MG TABLET PO SCH ×2 (08:29→21:14)
[2021-02-01] MEDS: BARICITINIB 2 MG TABLET PO SCH (08:29)
[2021-02-01] MEDS: VITAMIN D 1000 UNIT TAB PO SCH (08:34)
--- NOTE | 2021-02-01 10:30 | P.PN ---
Date of Service: 02/01/21 Subjective Patient is continuing to show improvement. He is on non-rebreather. He is maintaining his oxygen saturations appropriately. May turn him down to wall oxygen. Continue to work on discharge planning over the next 48 hrs Review of Systems 10-point ROS is otherwise unremarkable Physical Examination - Vital Signs Reviewed - Physical Exam General: Alert, In no apparent distress, Oriented x3 Respiratory: Diminished Cardiovascular: Regular rate/rhythm, Normal S1 S2, No murmurs Gastrointestinal: Normal bowel sounds, Soft and benign, Non-distended, No tenderness Musculoskeletal: No clubbing, No swelling, No tenderness Neurological: Sensation intact, Cranial nerves 3-12 intact Assessment & Plan - Problems (Diagnosis) (1) Pneumonia due to COVID-19 virus Current Visit: No Status: Acute (2) History of rheumatoid arthritis Current Visit: No Status: Acute (3) Hypoxemia Current Visit: No Status: Acute - Plan Continue with plan of care as mentioned below: 1. Continue with IV steroids; tapering dosage 2.Monitor labs as needed 3. Repeat chest x-ray if needed 4. Start aggressively wean down oxygen as patient is clinically doing much better 5. Physical therapy evaluation 6. Continue with neb treatments 7. GI and DVT prophylaxis
--- NOTE | 2021-02-01 10:45 | P.PN ---
Date of Service: 01/30/21 Subjective Patient is continuing to show improvement. He is on non-rebreather. He is maintaining his oxygen saturations appropriately. May turn him down to wall oxygen. Review of Systems 10-point ROS is otherwise unremarkable Physical Examination - Vital Signs Reviewed - Physical Exam General: Alert, In no apparent distress, Oriented x3 Respiratory: Diminished but otherwise clear Cardiovascular: Regular rate/rhythm, Normal S1 S2, No murmurs Gastrointestinal: Normal bowel sounds, Soft and benign, Non-distended, No tenderness Musculoskeletal: No clubbing, No swelling, No tenderness Neurological: Sensation intact, Cranial nerves 3-12 intact Assessment & Plan - Problems (Diagnosis) (1) Pneumonia due to COVID-19 virus Current Visit: No Status: Acute (2) History of rheumatoid arthritis Current Visit: No Status: Acute (3) Hypoxemia Current Visit: No Status: Acute - Plan Continue with plan of care as mentioned below: 1. Continue with IV steroids; tapering dosage 2. Monitor labs every few days 3. Repeat chest x-ray if needed 4. Continue to try to wean down steroids 5. Physical therapy and out of bed 6. Continue with neb treatments; wean down O2 7. GI and DVT prophylaxis
--- NOTE | 2021-02-01 10:46 | P.PN ---
Date of Service: 01/31/21 Subjective Patient with no new complaints. Continues to do well. Respiratory status is improving. Review of Systems 10-point ROS is otherwise unremarkable Physical Examination - Vital Signs Reviewed - Physical Exam General: Alert, In no apparent distress, Oriented x3 Respiratory: Diminished but otherwise clear Cardiovascular: Regular rate/rhythm, Normal S1 S2, No murmurs Gastrointestinal: Normal bowel sounds, Soft and benign, Non-distended, No tenderness Musculoskeletal: No clubbing, No swelling, No tenderness Neurological: Sensation intact, Cranial nerves 3-12 intact Assessment & Plan - Problems (Diagnosis) (1) Pneumonia due to COVID-19 virus Current Visit: No Status: Acute (2) History of rheumatoid arthritis Current Visit: No Status: Acute (3) Hypoxemia Current Visit: No Status: Acute - Plan Continue with plan of care as mentioned below: 1. Continue with IV steroids; tapering dosage 2. Monitor labs every few days 3. Repeat chest x-ray if needed 4. Continue to try to wean down steroids 5. Physical therapy and out of bed along with start ambulating 6. Continue with neb treatments; wean down O2 7. GI and DVT prophylaxis
--- NOTE | 2021-02-01 11:28 | P.PN ---
Subjective Date of Service: 02/01/21 Primary Care Provider: unknown Chief Complaint: COVID-19 pneumonia Patient had a rough day yesterday he is feeling better today still very hypoxic Review of Systems Respiratory: Shortness of Breath Physical Examination - Vital Signs Temperature: 97.8 F Blood Pressure: 115/64 Pulse: 73 Respirations: 20 Pulse Ox (%): 98 - Physical Exam General: Alert, In no apparent distress, Oriented x3, Cooperative - Studies Medications List Reviewed: Yes Assessment & Plan - Problems (Diagnosis) (1) Pneumonia due to COVID-19 virus Current Visit: No Status: Acute Plan: Continues to remain hypoxic is still on 100% FiO2 15 L of nasal cannula oxygen l abs reviewed patient is on Solu-Medrol and Barcitinib
[2021-02-01] MEDS: HYDROCODONE/APAP 5/325 MG TAB PO SCH (21:13)
[2021-02-01] MEDS: BENZONATATE 100 MG CAP PO PRN (21:15)
[2021-02-01] MEDS: MELATONIN 5 MG TABLET PO PRN (21:15)
--- NOTE | 2021-02-02 06:10 | P.PN ---
Subjective Date of Service: 02/02/21 Primary Care Provider: unknown Chief Complaint: COVID-19 pneumonia Subjective: Improving (Currently on 15 L) Physical Examination - Vital Signs Temperature: 97.0 F Blood Pressure: 116/74 Pulse: 112 Respirations: 19 Pulse Ox (%): 92 - Studies Medications List Reviewed: Yes Assessment & Plan Discharge Plan: Home Plan to discharge in: Greater than 2 days Physician Review Additional Text: COVID: Positive Chest x-ray: COMPARISON: January 08, 2001 FINDINGS: Marked bilateral pulmonary opacities. . The heart is normal size IMPRESSION: Marked bilateral pulmonary opacities have worsened since the prior exam probably pneumonia Follow-up chest x-ray 01/23/2021: COMPARISON: Chest Single View dated 01/29/2021; Chest Single View dated 01/26/2021; Chest Single View dated 01/25/2021; Chest Single View dated 01/24/2021 FINDINGS: Lines: None. Lungs: Mild to moderate widespread bilateral airspace disease. Pleural: No significant pleural effusions or pneumothorax. Cardiac: The heart size is within normal limits. Bones: No acute fractures. IMPRESSION: Widespread airspace disease without significant change compared 01/29/2021. Physical Exam: GENERAL: The patient is a well-developed, well-nourished, in no apparent distress. Alert and oriented x3. VITAL SIGNS: Reviewed HEENT: Neck supple LUNGS: 15 L HEART: Regular rate and rhythm, no appreciable gallops, rubs, murmurs or extra heart sounds ABDOMEN: Soft, nontender, and nondistended. Positive bowel sounds. No hepatosplenomegaly was noted. EXTREMITIES: Without any cyanosis, clubbing, rash, lesions or peripheral edema. NEUROLOGIC: The patient is oriented to person, place and time. Strength and sensation are grossly intact. Face is symmetric. SKIN: Normal color, turgor and temperature. No ulcerations or rashes noted. Impression: Dyspnea secondary to acute respiratory failure with hypoxia related to bilateral Covid pneumonia with transient Covid encephalopathy Hypertension Rheumatoid arthritis Leukocytosis Thrombocytopenia Plan: Dyspnea secondary to acute respiratory failure with hypoxia related to bilateral Covid pneumonia with transient Covid encephalopathy: Patient remains on 15 L. Continue to monitor closely. Continue IV steroids. Encourage incentive spirometer. Continue DVT prophylaxis. Medications reviewed Hypertension: Continue valsartan. Rheumatoid arthritis: Continue gabapentin. Celebrex discontinued due to thrombocytopenia. Leukocytosis: Likely from steroids. Will monitor closely. Will discuss with pulmonology. Thrombocytopenia: Celebrex discontinued. Hold Eliquis if platelet count less than 100. Continue to monitor closely. Continue monitor the patient closely. DVT prophylaxis: Eliquis CODE STATUS: This was readdressed with the patient. Patient wishes to be full code at this time. Patient was previously DO NOT INTUBATE. Advanced care [id number] minutes: Patient wishes to go home at discharge Time Spent Managing Pts Care (In Minutes): 55
--- NOTE | 2021-02-02 07:14 | RAD REPORT ---
EXAM DESCRIPTION: RAD - Chest Single View - 02/02/2021 4:49 am CLINICAL HISTORY: Respiratory failure COMPARISON: Chest Single View dated 01/29/2021; Chest Single View dated 01/26/2021; Chest Single View da [place] 01/25/2021; Chest Single View dated 01/24/2021 FINDINGS: Lines: None. Lungs: Mild to moderate widespread bilateral airspace disease. Pleural: No significant pleural effusions or pneumothorax. Cardiac: The heart size is within normal limits. Bones: No acute fractures. Other: IMPRESSION: Widespread airspace disease without significant change compared 01/29/2021.
[2021-02-02] MEDS: HYDROCODONE/APAP 5/325 MG TAB PO SCH ×3 (07:21→21:00)
[2021-02-02] MEDS: FLUCONAZOLE 100 MG TAB PO SCH (08:48)
[2021-02-02] MEDS: MULTIVIT W/ MINERAL TAB PO SCH (08:48)
[2021-02-02] MEDS: GABAPENTIN 300 MG CAP PO SCH ×3 (08:49→20:34)
[2021-02-02] MEDS: APIXABAN 5 MG TABLET PO SCH ×2 (08:49→20:35)
[2021-02-02] MEDS: ZINC SULFATE 220 MG CAP PO SCH (08:49)
[2021-02-02] MEDS: THIAMINE HCL 100 MG TABLET PO SCH (08:49)
[2021-02-02] MEDS: VALSARTAN 160 MG TAB PO SCH (08:49)
[2021-02-02] MEDS: FUROSEMIDE 20 MG/ 2ML VIAL IV SCH (08:50)
[2021-02-02] MEDS: VITAMIN D 1000 UNIT TAB PO SCH (08:50)
[2021-02-02] MEDS: BARICITINIB 2 MG TABLET PO SCH (08:50)
[2021-02-02] MEDS: FAMOTIDINE 20 MG TAB PO SCH ×2 (08:50→20:34)
[2021-02-02] MEDS: METHYLPREDNISOLONE 40 MG INJ IV SCH ×2 (08:51→20:34)
[2021-02-02] MEDS: ASCORBIC ACID 500 MG TABLET PO SCH (08:51)
[2021-02-02] MEDS: BENZONATATE 100 MG CAP PO PRN (20:34)
[2021-02-02] MEDS: MELATONIN 5 MG TABLET PO PRN (20:35)
[2021-02-03] MEDS: HYDROCODONE/APAP 5/325 MG TAB PO SCH ×3 (05:53→20:45)
--- NOTE | 2021-02-03 06:11 | P.PN ---
Subjective Date of Service: 02/03/21 Primary Care Provider: unknown Chief Complaint: COVID-19 pneumonia Subjective: Other (Currently on 15 L) Physical Examination - Vital Signs Temperature: 97.2 F Blood Pressure: 106/64 Pulse: 107 Respirations: 18 Pulse Ox (%): 93 - Studies Medications List Reviewed: Yes Assessment & Plan Discharge Plan: LTAC Plan to discharge in: Greater than 2 days Physician Review Additional Text: COVID: Positive Chest x-ray: COMPARISON: January 08, 2001 FINDINGS: Marked bilateral pulmonary opacities. . The heart is normal size IMPRESSION: Marked bilateral pulmonary opacities have worsened since the prior exam probably pneumonia Follow-up chest x-ray 01/23/2021: COMPARISON: Chest Single View dated 01/29/2021; Chest Single View dated 01/26/2021; Chest Single View dated 01/25/2021; Chest Single View dated 01/24/2021 FINDINGS: Lines: None. Lungs: Mild to moderate widespread bilateral airspace disease. Pleural: No significant pleural effusions or pneumothorax. Cardiac: The heart size is within normal limits. Bones: No acute fractures. IMPRESSION: Widespread airspace disease without significant change compared 01/29/2021. Physical Exam: GENERAL: The patient is a well-developed, well-nourished, in no apparent distress. Alert and oriented x3. VITAL SIGNS: Reviewed HEENT: Neck supple LUNGS: Currently on 15 L HEART: Regular rate and rhythm, no appreciable gallops, rubs, murmurs or extra heart sounds ABDOMEN: Soft, nontender, and nondistended. Positive bowel sounds. No hepatosplenomegaly was noted. EXTREMITIES: Without any cyanosis, clubbing, rash, lesions or peripheral edema. NEUROLOGIC: The patient is oriented to person, place and time. Strength and sensation are grossly intact. Face is symmetric. SKIN: Normal color, turgor and temperature. No ulcerations or rashes noted. Impression: Dyspnea secondary to acute respiratory failure with hypoxia related to bilateral Covid pneumonia with transient Covid encephalopathy Hypertension Rheumatoid arthritis Leukocytosis Thrombocytopenia Plan: Dyspnea secondary to acute respiratory failure with hypoxia related to bilateral Covid pneumonia with transient Covid encephalopathy: Patient remains on 15 L. No distress noted. We will have respiratory continue to wean off oxygen to maintain sats above 90%. Continue IV steroids and baricitinib. Continue to monitor CRP, ferritin and liver function tests. Encourage incentive spirometer. Continue DVT prophylaxis. Medications reviewed spoke with patient concerning plan of care. Patient agreeable to LTAC. We will pursue this at this time.. Hypertension: Continue valsartan. Rheumatoid arthritis: Continue gabapentin. Celebrex discontinued due to thrombocytopenia. Leukocytosis: Likely from steroids. Will monitor closely. Pulmonology added Diflucan. Thrombocytopenia: Celebrex discontinued. Hold Eliquis if platelet count less than 100. Continue to monitor closely. Continue monitor the patient closely. DVT prophylaxis: Eliquis CODE STATUS: This was readdressed with the patient. Patient wishes to be full code at this time. Advanced care [id number] minutes: Patient agreeable to LTAC Time Spent Managing Pts Care (In Minutes): 55
[2021-02-03] MEDS: FUROSEMIDE 20 MG/ 2ML VIAL IV SCH ×2 (09:00→09:54)
[2021-02-03] MEDS: METHYLPREDNISOLONE 40 MG INJ IV SCH ×3 (09:00→20:57)
[2021-02-03] MEDS: FLUCONAZOLE 100 MG TAB PO SCH (09:51)
[2021-02-03] MEDS: VITAMIN D 1000 UNIT TAB PO SCH (09:51)
[2021-02-03] MEDS: GABAPENTIN 300 MG CAP PO SCH ×3 (09:52→20:44)
[2021-02-03] MEDS: FAMOTIDINE 20 MG TAB PO SCH ×2 (09:52→20:47)
[2021-02-03] MEDS: ASCORBIC ACID 500 MG TABLET PO SCH (09:52)
[2021-02-03] MEDS: THIAMINE HCL 100 MG TABLET PO SCH (09:52)
[2021-02-03] MEDS: APIXABAN 5 MG TABLET PO SCH ×2 (09:52→20:47)
[2021-02-03] MEDS: MULTIVIT W/ MINERAL TAB PO SCH (09:52)
[2021-02-03] MEDS: BARICITINIB 2 MG TABLET PO SCH (09:52)
[2021-02-03] MEDS: ZINC SULFATE 220 MG CAP PO SCH (09:52)
[2021-02-03] MEDS: VALSARTAN 160 MG TAB PO SCH (09:53)
[2021-02-03] MEDS: MELATONIN 5 MG TABLET PO PRN (20:47)
--- NOTE | 2021-02-04 00:26 | P.PN ---
Date of Service: 02/03/21 JASSON DÍAZ was called by nursing staff, patient was found on floor in treatment room off of his oxygen and appeared cyanotic. Upon evaluation by nursing staff patient was found to have a pulse and be breathing, was placed back on his oxygen and quickly recovered. Patient without any injuries or pain, negative loss of consciousness no pain or tenderness noted to C-spine all extremities active and passive range of motion intact without pain. Patient oriented x4, when I attempted to interview patient and ask him what happened he declined to speak with me stating "I refuse to talk to you". Attempted to discuss patient's wishes/CODE STATUS patient again stated "I refused to talk to you". Patient was placed back on oxygen vital signs were stable oxygen saturation satisfactory again oriented x4. After leaving patient's treatment room nursing staff called and reportedly had conversation with patient during which he alluded that he is very depressed regarding his 's passing and his inability to attend her this coming Tuesday, reports that he intentionally took his oxygen off and got on the floor and apparent self-harm attempt. Patient requesting evaluation from psychiatry when directly probed patient declined suicidal ideation. Discussed with her supervisor uranium processing recommend close observation, will also discuss case with hospitalist attending and place consult for psychiatry. We will need to discuss CODE STATUS further when patient is willing to.
[2021-02-04] MEDS: HYDROCODONE/APAP 5/325 MG TAB PO SCH ×3 (05:42→19:40)
--- NOTE | 2021-02-04 05:54 | P.PN ---
Subjective Date of Service: 02/04/21 Primary Care Provider: unknown Chief Complaint: COVID-19 pneumonia Subjective: Other (Patient was brought to ICU for close monitoring. There was some question of possible suicidal ideation. Patient stable at this time. Patient not suicidal) Physical Examination - Vital Signs Temperature: 97.1 F Blood Pressure: 97/76 Pulse: 109 Respirations: 16 Pulse Ox (%): 100 - Studies Medications List Reviewed: Yes Assessment & Plan Discharge Plan: LTAC Plan to discharge in: Greater than 2 days Physician Review Additional Text: COVID: Positive Chest x-ray: COMPARISON: January 08, 2001 FINDINGS: Marked bilateral pulmonary opacities. . The heart is normal size IMPRESSION: Marked bilateral pulmonary opacities have worsened since the prior exam probably pneumonia Follow-up chest x-ray 01/23/2021: COMPARISON: Chest Single View dated 01/29/2021; Chest Single View dated 01/26/2021; Chest Single View dated 01/25/2021; Chest Single View dated 01/24/2021 FINDINGS: Lines: None. Lungs: Mild to moderate widespread bilateral airspace disease. Pleural: No significant pleural effusions or pneumothorax. Cardiac: The heart size is within normal limits. Bones: No acute fractures. IMPRESSION: Widespread airspace disease without significant change compared 01/29/2021. Physical Exam: GENERAL: The patient is a well-developed, well-nourished, in no apparent distress. Alert and oriented x3. Patient not suicidal. Patient appropriate. VITAL SIGNS: Reviewed HEENT: Neck supple LUNGS: Currently on high flow at 80% HEART: Regular rate and rhythm, no appreciable gallops, rubs, murmurs or extra heart sounds ABDOMEN: Soft, nontender, and nondistended. Positive bowel sounds. No hepatosplenomegaly was noted. EXTREMITIES: Without any cyanosis, clubbing, rash, lesions or peripheral edema. NEUROLOGIC: The patient is oriented to person, place and time. Strength and sensation are grossly intact. Face is symmetric. SKIN: Normal color, turgor and temperature. No ulcerations or rashes noted. Impression: Dyspnea secondary to acute respiratory failure with hypoxia related to bilateral Covid pneumonia with transient Covid encephalopathy Hypertension Rheumatoid arthritis Leukocytosis Thrombocytopenia Depression Elevated liver function Plan: Dyspnea secondary to acute respiratory failure with hypoxia related to bilateral Covid pneumonia with transient Covid encephalopathy: Patient now in ICU for close monitoring. Patient not suicidal at this time. Patient wishes to be evaluated by psychiatry. Spoke with psychiatry. Psychiatry to evaluate patient. Patient has been under a great deal of stress with losing his to Covid 2 weeks ago. Now dealing with Covid infection himself. Continue current treatment plan. Wean off high flow. Maintain sats above 90%. Maintain oxygen at all times. Will discuss with pharmacy on when parse intermittent needs to be discontinued due to elevated liver function test. Continue to monitor CRP, ferritin and liver function tests. Encourage incentive spirometer. Continue DVT prophylaxis. Await recommendations from psychiatry. Will discuss with pulmonology. Patient agreeable to long-term care facility placement. Hypertension: Continue valsartan. Rheumatoid arthritis: Continue gabapentin. Celebrex has been discontinued due to thrombocytopenia. Leukocytosis: Likely from steroids. Will monitor closely. Pulmonology added Diflucan. Thrombocytopenia: Resolved. Celebrex discontinued. Hold Eliquis if platelet count less than 100. Depression: No suicidal ideation noted at this time. Will provide medication as needed. Await recommendations from psychiatry. Elevated liver function: We will need to monitor lab closely. Consider discontinuing baricitinib. Will discuss with pharmacy DVT prophylaxis: Eliquis CODE STATUS: This was readdressed with the patient. Patient wishes to be full code at this time. Advanced care [id number] minutes: Patient agreeable to LTAC Time Spent Managing Pts Care (In Minutes): 55
[2021-02-04 07:35] LABS: Absolute Lymphocytes (CBC) 1.1 K/uL (0.7-4.9); Basophils % 0.1 % (0-1.3); Hematocrit 43.3 % (39.6-49.0); Lymphocytes % 4.5 % (15.3-44.8); MPV 7.9 fL (7.6-11.3); RBC Red Blood Cell Count 5.56 M/uL (4.33-5.43)
[2021-02-04 07:59] LABS: ALT/SGPT 177 U/L (12-78); AST/SGOT 114 U/L (15-37); Albumin 3.1 g/dL (3.4-5.0); Alkaline Phosphatase 152 U/L (45-117); BUN Blood Urea Nitrogen 34 mg/dL (7-18); Bicarbonate 38 mmol/L (21-32); Bilirubin Total 1.6 mg/dL (0.2-1.0); Ferritin 632.4 ng/mL (26-388); Glucose Level 152 mg/dL (74-106); Magnesium 2.2 mg/dL (1.8-2.4); Potassium 4.2 mmol/L (3.5-5.1); Protein, Total 6.8 g/dL (6.4-8.2); Sodium Level 140 mmol/L (136-145)
[2021-02-04 08:00] LABS: C-Reactive Protein < 2.90 mg/L (<3.00)
[2021-02-04] MEDS: FUROSEMIDE 20 MG/ 2ML VIAL IV SCH (08:10)
[2021-02-04] MEDS: VITAMIN D 1000 UNIT TAB PO SCH (08:11)
[2021-02-04] MEDS: METHYLPREDNISOLONE 40 MG INJ IV SCH ×2 (08:11→20:00)
[2021-02-04] MEDS: ZINC SULFATE 220 MG CAP PO SCH (08:12)
[2021-02-04] MEDS: APIXABAN 5 MG TABLET PO SCH ×2 (08:12→20:00)
[2021-02-04] MEDS: FLUCONAZOLE 100 MG TAB PO SCH (08:12)
[2021-02-04] MEDS: ASCORBIC ACID 500 MG TABLET PO SCH (08:12)
[2021-02-04] MEDS: FAMOTIDINE 20 MG TAB PO SCH ×2 (08:12→20:00)
[2021-02-04] MEDS: VALSARTAN 160 MG TAB PO SCH (08:12)
[2021-02-04] MEDS: MULTIVIT W/ MINERAL TAB PO SCH (08:12)
[2021-02-04] MEDS: GABAPENTIN 300 MG CAP PO SCH ×3 (08:12→20:00)
[2021-02-04] MEDS: THIAMINE HCL 100 MG TABLET PO SCH (08:12)
[2021-02-04 08:34] LABS: Blood Morphology Comment NOTED (NOT SEEN); Platelet Estimate INCR; Stomatocytes 1+
--- NOTE | 2021-02-04 10:01 | RAD REPORT ---
EXAM DESCRIPTION: RAD - Chest Single View - 02/04/2021 9:52 am CLINICAL HISTORY: resp failure COMPARISON: Chest Single View dated 02/02/2021; Chest Single View dated 01/29/2021; Chest Single View d ated 01/26/2021; Chest Single View dated 01/25/2021 FINDINGS: Lines: None. Lungs: Mild diffuse airspace disease without significant change. Pleural: No significant pleural effusions or pneumothorax. Cardiac: The heart size is within normal limits. Bones: No acute fractures. Other: Interval development of subcutaneous emphysema at the right base of the neck and likely pneumo mediastinum IMPRESSION: Interval development of subcutaneous emphysema and pneumomediastinum. No pneumothorax. Mild bilateral airspace disease is similar.
[2021-02-04] MEDS: CEFTRIAXONE/SWI 1gm 1 GM/10 ML SYR IV SCH (10:08)
[2021-02-04] MEDS: BARICITINIB 2 MG TABLET PO SCH (10:09)
[2021-02-04] MEDS ORDERED: TRAZODONE 50 MG TABLET PO PRN (12:40)
[2021-02-04 12:41] LABS: Arterial Blood Carboxyhemoglob 1.1 % (0-1.5); Blood Gas Oxyhemoglobin 83.8 % (94-97); Blood O2 Saturation 85.4 % (92-98.5)
--- NOTE | 2021-02-04 16:55 | P.PN ---
Subjective Date of Service: 02/04/21 Primary Care Provider: unknown Chief Complaint: COVID-19 pneumonia Pt transferred from floor to the ICU, Denies suicidal ideation Review of Systems Respiratory: Shortness of Breath Physical Examination - Vital Signs Temperature: 97.1 F Blood Pressure: 93/74 Pulse: 116 Respirations: 18 Pulse Ox (%): 99 - Physical Exam General: Alert, Oriented x3, Cooperative - Studies Medications List Reviewed: Yes Assessment & Plan - Problems (Diagnosis) (1) Pneumonia due to COVID-19 virus Current Visit: No Status: Acute Plan: Resp failure denies suicidal ideation/SBpsychiatry/ ABG severe hypoxemia WBC now elevated/CXRY has improved/ on 70% FIo2/ Microcytosis/ Transferrin sat/on Rocephin
[2021-02-05] MEDS: HYDROCODONE/APAP 5/325 MG TAB PO SCH ×3 (04:08→20:14)
[2021-02-05 05:00] LABS: Absolute Lymphocytes (CBC) 0.7 K/uL (0.7-4.9); Basophils % 0.2 % (0-1.3); Hematocrit 42.1 % (39.6-49.0); Lymphocytes % 3.5 % (15.3-44.8); MPV 7.9 fL (7.6-11.3)
--- NOTE | 2021-02-05 05:46 | P.PN ---
Subjective Date of Service: 02/05/21 Primary Care Provider: unknown Chief Complaint: COVID-19 pneumonia Subjective: Improving (Current on high flow at 75% overall stable.) Physical Examination - Vital Signs Temperature: 97.2 F Blood Pressure: 104/78 Pulse: 83 Respirations: 15 Pulse Ox (%): 98 - Studies Medications List Reviewed: Yes Assessment & Plan Discharge Plan: LTAC Plan to discharge in: Greater than 2 days Physician Review Additional Text: COVID: Positive Chest x-ray: COMPARISON: January 08, 2001 FINDINGS: Marked bilateral pulmonary opacities. . The heart is normal size IMPRESSION: Marked bilateral pulmonary opacities have worsened since the prior exam probably pneumonia Follow-up chest x-ray 02/05/2021: COMPARISON: February 04 TECHNIQUE: AP portable chest image was obtained 02/05/2021 5:34 am . FINDINGS: Lung volumes are low. Patchy lung parenchymal opacification present similar to comparison. No new or progressive lung parenchymal finding seen. Heart and vasculature are normal. No pneumothorax or enlarging pleural effusions seen. Subcutaneous emphysema is similar or slightly diminished from comparison. No new or progressive pneumomediastinum. IMPRESSION: Stable patchy lung parenchymal opacification. No pneumothorax or progressive subcutaneous emphysema. Physical Exam: GENERAL: The patient is a well-developed, well-nourished, in no apparent distress. Alert and oriented x3. Patient not suicidal. Patient appropriate. VITAL SIGNS: Reviewed HEENT: Neck supple LUNGS: Currently on high flow at 75 % HEART: Regular rate and rhythm, no appreciable gallops, rubs, murmurs or extra heart sounds ABDOMEN: Soft, nontender, and nondistended. Positive bowel sounds. No hepatosplenomegaly was noted. EXTREMITIES: Without any cyanosis, clubbing, rash, lesions or peripheral edema. NEUROLOGIC: The patient is oriented to person, place and time. Strength and sensation are grossly intact. Face is symmetric. SKIN: Normal color, turgor and temperature. No ulcerations or rashes noted. Impression: Dyspnea secondary to acute respiratory failure with hypoxia related to bilateral Covid pneumonia with transient Covid encephalopathy Hypertension Rheumatoid arthritis Leukocytosis Thrombocytopenia Depression Elevated liver function Plan: Dyspnea secondary to acute respiratory failure with hypoxia related to bilateral Covid pneumonia with transient Covid encephalopathy: Patient reports improvement. No suicidal ideation at this time. Psych evaluated patient. No intervention needed at this time. No medication needed at this time. Continue with support. CRP and ferritin improved. Now down to 75% high flow. Continue to maintain sats above 90%. Continue to monitor lab closely. Continue IV steroid. White count improved. Patient was placed on Rocephin and Diflucan to cover for opportunistic infection. Patient agreeable to long-term acute facility placement. Continue DVT prophylaxis. Continue to monitor closely. Continue with current plan of care. Hypertension: No longer on medication. Discontinue IV Lasix. Rheumatoid arthritis: Continue gabapentin. Hold with increased sedation. Celebrex has been discontinued due to thrombocytopenia. Leukocytosis: Likely from steroids. Will monitor closely. Patient on Diflucan and Rocephin. White count improved. Will monitor closely. Thrombocytopenia: Resolved. Celebrex discontinued. Hold Eliquis if platelet count less than 100. Depression: No suicidal ideation noted at this time. Will provide medication as needed. Psychiatry recommended no intervention at this time. Patient stable. Continue with supportive care. Elevated liver function: We will need to monitor lab closely. Pharmacy to monitor and adjust baricitinib. Continue to monitor liver function test. DVT prophylaxis: Eliquis CODE STATUS: This was readdressed with the patient. Patient wishes to be full code at this time. Advanced care [id number] minutes: Patient agreeable to LTAC Time Spent Managing Pts Care (In Minutes): 55
[2021-02-05 05:50] LABS: ALT/SGPT 174 U/L (12-78); AST/SGOT 99 U/L (15-37); Alkaline Phosphatase 139 U/L (45-117); BUN Blood Urea Nitrogen 41 mg/dL (7-18); Bicarbonate 37 mmol/L (21-32); Bilirubin Total 1.2 mg/dL (0.2-1.0); Ferritin 605.6 ng/mL (26-388); Glucose Level 150 mg/dL (74-106); Magnesium 2.2 mg/dL (1.8-2.4); Potassium 4.7 mmol/L (3.5-5.1); Protein, Total 6.6 g/dL (6.4-8.2); Sodium Level 139 mmol/L (136-145)
[2021-02-05 05:51] LABS: C-Reactive Protein < 2.90 mg/L (<3.00)
--- NOTE | 2021-02-05 07:43 | RAD REPORT ---
EXAM DESCRIPTION: RAD - Chest Single View - 02/05/2021 5:34 am CLINICAL HISTORY: resp failure COMPARISON: February 04 TECHNIQUE: AP portable chest image was obtained 02/05/2021 5:34 am . FINDINGS: Lung volumes are low. Patchy lung parenchymal opacification present similar to comparison. No new or progressive lung parenchymal finding seen. Heart and vasculature are normal. No pneumothor ax or enlarging pleural effusions seen. Subcutaneous emphysema is similar or slightly diminished from comparison. No new or progressive pneumomediastinum. IMPRESSION: Stable patchy lung parenchymal opacification. No pneumothorax or progressive subcutaneous emphysema.
[2021-02-05] MEDS: CEFTRIAXONE/SWI 1gm 1 GM/10 ML SYR IV SCH (08:01)
[2021-02-05] MEDS: FUROSEMIDE 20 MG/ 2ML VIAL IV SCH (08:01)
[2021-02-05] MEDS: VITAMIN D 1000 UNIT TAB PO SCH (08:01)
[2021-02-05] MEDS: METHYLPREDNISOLONE 40 MG INJ IV SCH ×2 (08:01→20:14)
[2021-02-05] MEDS: GABAPENTIN 300 MG CAP PO SCH ×3 (08:02→20:14)
[2021-02-05] MEDS: FLUCONAZOLE 100 MG TAB PO SCH ×2 (08:02→08:29)
[2021-02-05] MEDS: THIAMINE HCL 100 MG TABLET PO SCH (08:02)
[2021-02-05] MEDS: MULTIVIT W/ MINERAL TAB PO SCH (08:02)
[2021-02-05] MEDS: APIXABAN 5 MG TABLET PO SCH ×2 (08:02→20:14)
[2021-02-05] MEDS: FAMOTIDINE 20 MG TAB PO SCH ×2 (08:03→20:14)
[2021-02-06] MEDS: HYDROCODONE/APAP 5/325 MG TAB PO SCH ×3 (05:04→21:14)
--- NOTE | 2021-02-06 05:54 | P.PN ---
Subjective Date of Service: 02/06/21 Primary Care Provider: unknown Chief Complaint: COVID-19 pneumonia Subjective: Improving (Patient in good spirit. Currently on high flow at 80%) Physical Examination - Vital Signs Temperature: 97.5 F Blood Pressure: 132/79 Pulse: 77 Respirations: 19 Pulse Ox (%): 96 - Studies Medications List Reviewed: Yes Assessment & Plan Discharge Plan: LTAC Plan to discharge in: Greater than 2 days Physician Review Additional Text: COVID: Positive Chest x-ray: COMPARISON: January 08, 2001 FINDINGS: Marked bilateral pulmonary opacities. . The heart is normal size IMPRESSION: Marked bilateral pulmonary opacities have worsened since the prior exam probably pneumonia Follow-up chest x-ray 02/05/2021: COMPARISON: February 04 TECHNIQUE: AP portable chest image was obtained 02/05/2021 5:34 am . FINDINGS: Lung volumes are low. Patchy lung parenchymal opacification present similar to comparison. No new or progressive lung parenchymal finding seen. Heart and vasculature are normal. No pneumothorax or enlarging pleural effusions seen. Subcutaneous emphysema is similar or slightly diminished from comparison. No new or progressive pneumomediastinum. IMPRESSION: Stable patchy lung parenchymal opacification. No pneumothorax or progressive subcutaneous emphysema. Physical Exam: GENERAL: The patient is a well-developed, well-nourished, in no apparent distress. Alert and oriented x3. Patient not suicidal. Patient appropriate. VITAL SIGNS: Reviewed HEENT: Neck supple LUNGS: Currently on high flow at 80 % HEART: Regular rate and rhythm, no appreciable gallops, rubs, murmurs or extra heart sounds ABDOMEN: Soft, nontender, and nondistended. Positive bowel sounds. No hepatosplenomegaly was noted. EXTREMITIES: Without any cyanosis, clubbing, rash, lesions or peripheral edema. NEUROLOGIC: The patient is oriented to person, place and time. Strength and sensation are grossly intact. Face is symmetric. SKIN: Normal color, turgor and temperature. No ulcerations or rashes noted. Impression: Dyspnea secondary to acute respiratory failure with hypoxia related to bilateral Covid pneumonia with transient Covid encephalopathy Hypertension Rheumatoid arthritis Leukocytosis Thrombocytopenia Depression Elevated liver function Plan: Dyspnea secondary to acute respiratory failure with hypoxia related to bilateral Covid pneumonia with transient Covid encephalopathy: Patient continues to improve. Currently on 80% high flow. No suicidal ideation. Patient evaluated by psych. No intervention required. Continue with support. CRP and ferritin improved. Continue to maintain sats above 90%. Continue to monitor lab closely. Continue IV steroid. White count stable. Patient remains on Rocephin and Diflucan to cover opportunistic infection. Patient agreeable to long-term acute facility placement. Continue DVT prophylaxis. Continue to monitor closely. Continue with current plan of care. Hypertension: No longer on medication. Will monitor closely. Rheumatoid arthritis: Continue gabapentin. Hold with increased sedation. Celebrex has been discontinued due to thrombocytopenia. Leukocytosis: Likely from steroids. Will monitor closely. Patient on Diflucan and Rocephin. White count improved. Will monitor closely. Thrombocytopenia: Resolved. Celebrex discontinued. Hold Eliquis if platelet count less than 100. Depression: No suicidal ideation noted at this time. Will provide medication as needed. Psychiatry recommended no intervention at this time. Patient stable. Continue with supportive care. will be buried on Tuesday. He plans to attend [employer]. Elevated liver function: We will need to monitor lab closely. Pharmacy to monitor and adjust baricitinib. Continue to monitor liver function test. DVT prophylaxis: Eliquis CODE STATUS: This was readdressed with the patient. Patient wishes to be full code at this time. Advanced care [id number] minutes: Patient agreeable to LTAC Time Spent Managing Pts Care (In Minutes): 55
[2021-02-06 06:00] LABS: Absolute Lymphocytes (CBC) 0.4 K/uL (0.7-4.9); Basophils % 0.1 % (0-1.3); Hematocrit 43.4 % (39.6-49.0); RBC Red Blood Cell Count 5.57 M/uL (4.33-5.43)
[2021-02-06 06:30] LABS: ALT/SGPT 179 U/L (12-78); AST/SGOT 92 U/L (15-37); Albumin 3.2 g/dL (3.4-5.0); Alkaline Phosphatase 145 U/L (45-117); BUN Blood Urea Nitrogen 31 mg/dL (7-18); Bicarbonate 35 mmol/L (21-32); Bilirubin Total 1.4 mg/dL (0.2-1.0); Ferritin 683.7 ng/mL (26-388); Glucose Level 158 mg/dL (74-106); Magnesium 2.2 mg/dL (1.8-2.4); Potassium 5.1 mmol/L (3.5-5.1); Protein, Total 6.9 g/dL (6.4-8.2); Sodium Level 138 mmol/L (136-145)
[2021-02-06 06:32] LABS: C-Reactive Protein < 2.90 mg/L (<3.00)
--- NOTE | 2021-02-06 07:18 | RAD REPORT ---
EXAM DESCRIPTION: RAD - Chest Single View - 02/06/2021 5:32 am CLINICAL HISTORY: resp failure COMPARISON: February 05 TECHNIQUE: AP portable chest image was obtained 02/06/2021 5:32 am . FINDINGS: Lung volumes remain low. No new or progressive lung parenchymal opacification. No measurab le improvement or progression is identifiable. Heart and vasculature are normal. No pleural effusion. No pneumothorax seen and the subcutaneous emp hysema shows further resolution. IMPRESSION: Stable lung parenchymal opacification pattern. No pneumothorax identifiable. Subcutaneous emphysema has improved.
[2021-02-06] MEDS: FLUCONAZOLE 100 MG TAB PO SCH (08:52)
[2021-02-06] MEDS: METHYLPREDNISOLONE 40 MG INJ IV SCH ×2 (08:52→21:14)
[2021-02-06] MEDS: VITAMIN D 1000 UNIT TAB PO SCH (08:52)
[2021-02-06] MEDS: GABAPENTIN 300 MG CAP PO SCH ×3 (08:53→21:15)
[2021-02-06] MEDS: MULTIVIT W/ MINERAL TAB PO SCH (08:53)
[2021-02-06] MEDS: APIXABAN 5 MG TABLET PO SCH ×2 (08:53→21:15)
[2021-02-06] MEDS: THIAMINE HCL 100 MG TABLET PO SCH (08:53)
[2021-02-06] MEDS: FAMOTIDINE 20 MG TAB PO SCH ×2 (08:53→21:15)
[2021-02-06] MEDS: CEFTRIAXONE/SWI 1gm 1 GM/10 ML SYR IV SCH (09:30)
--- NOTE | 2021-02-06 11:20 | P.PN ---
Subjective Date of Service: 02/06/21 Primary Care Provider: unknown Chief Complaint: COVID-19 pneumonia Patient is doing better he is down to 80% FiO2 he is alert responsive cleared by psych no suicidal ideation Review of Systems General: Weakness Respiratory: Shortness of Breath Physical Examination - Vital Signs Temperature: 97.5 F Blood Pressure: 132/79 Pulse: 77 Respirations: 19 Pulse Ox (%): 96 - Physical Exam General: Alert, Oriented x3, Cooperative - Studies Medications List Reviewed: Yes Assessment & Plan - Problems (Diagnosis) (1) Pneumonia due to COVID-19 virus Current Visit: No Status: Acute Plan: Respiratory failure seems to be improving down to 80% FiO2 no evidence of any suicidal ideation white count is still mildly elevated improvement in chest x- ray stable to be transferred to the floor
[2021-02-07] MEDS ORDERED: LORazepam 2 MG/ML VIAL IV ONE (01:41)
[2021-02-07] MEDS ORDERED: LORazepam 2 MG/ML VIAL ONE (02:04)
[2021-02-07] MEDS: HYDROCODONE/APAP 5/325 MG TAB PO SCH ×3 (05:03→20:02)
[2021-02-07 05:08] LABS: Absolute Lymphocytes (CBC) 0.2 K/uL (0.7-4.9); Basophils % 0.1 % (0-1.3); Hematocrit 42.9 % (39.6-49.0); Lymphocytes % 1.2 % (15.3-44.8); MPV 8.1 fL (7.6-11.3); RBC Red Blood Cell Count 5.52 M/uL (4.33-5.43)
[2021-02-07 05:28] VITALS: BMI 22.8
[2021-02-07 05:35] LABS: ALT/SGPT 189 U/L (12-78); AST/SGOT 93 U/L (15-37); Albumin 3.2 g/dL (3.4-5.0); Alkaline Phosphatase 148 U/L (45-117); BUN Blood Urea Nitrogen 32 mg/dL (7-18); Bicarbonate 38 mmol/L (21-32); Bilirubin Total 1.7 mg/dL (0.2-1.0); Ferritin 756.9 ng/mL (26-388); Glucose Level 187 mg/dL (74-106); Magnesium 2.2 mg/dL (1.8-2.4); Potassium 4.7 mmol/L (3.5-5.1); Protein, Total 6.8 g/dL (6.4-8.2); Sodium Level 136 mmol/L (136-145)
[2021-02-07 05:48] LABS: C-Reactive Protein < 2.90 mg/L (<3.00)
[2021-02-07] MEDS: METHYLPREDNISOLONE 40 MG INJ IV SCH ×2 (08:30→20:02)
[2021-02-07] MEDS: FAMOTIDINE 20 MG TAB PO SCH ×2 (08:31→20:02)
[2021-02-07] MEDS: APIXABAN 5 MG TABLET PO SCH ×2 (08:31→20:02)
[2021-02-07] MEDS: VITAMIN D 1000 UNIT TAB PO SCH (08:31)
--- NOTE | 2021-02-07 08:31 | RAD REPORT ---
EXAM DESCRIPTION: RAD - Chest Single View - 02/07/2021 6:57 am CLINICAL HISTORY: resp failure COMPARISON: February 06February 05 TECHNIQUE: AP portable chest image was obtained 02/07/2021 6:57 am . FINDINGS: Lung parenchymal opacification in the lower left lung field is fractionally worse than true or imaging. This is partly due to lower lung volume. Right lung field is stable. Heart and vasculature are normal. No measurable pleural effusion and no pneumothorax. IMPRESSION: Slightly worse airspace opacification in the left lung base.
[2021-02-07] MEDS: THIAMINE HCL 100 MG TABLET PO SCH (08:32)
[2021-02-07] MEDS: GABAPENTIN 300 MG CAP PO SCH ×3 (08:32→20:02)
[2021-02-07] MEDS: FLUCONAZOLE 100 MG TAB PO SCH (08:32)
[2021-02-07] MEDS: CEFTRIAXONE/SWI 1gm 1 GM/10 ML SYR IV SCH (08:33)
[2021-02-07] MEDS: MULTIVIT W/ MINERAL TAB PO SCH (08:33)
--- NOTE | 2021-02-07 09:30 | P.PN ---
Subjective Date of Service: 02/07/21 Primary Care Provider: unknown Chief Complaint: COVID-19 pneumonia NC still onFio2 of 80%. NC Review of Systems Respiratory: Shortness of Breath Physical Examination - Vital Signs Temperature: 97.9 F Blood Pressure: 145/86 Pulse: 101 Respirations: 12 Pulse Ox (%): 93 - Physical Exam General: Alert, Oriented x3, Cooperative - Studies Medications List Reviewed: Yes Assessment & Plan - Problems (Diagnosis) (1) Pneumonia due to COVID-19 virus Current Visit: No Status: Acute Plan: Resp failure NC , ABG ordered labs reviewed/ Chage to DELGADO mccartney, WBC declinging Prog poor
[2021-02-07 12:04] LABS: Arterial Blood Carboxyhemoglob 1.2 % (0-1.5)
--- NOTE | 2021-02-07 15:19 | P.PN ---
Date of Service: 02/07/21 Patient Name: ELIER NEELY Date of : 1960 Patient Status: Inpatient Attending Provider: Giovanni Garcia Subjective Primary Care Provider: unknown Chief Complaint: COVID-19 pneumonia Subjective: still same on 80% FIO2, wanting to go to facility in [place] Physical Examination - Vital Signs Temperature: 97.2 F Blood Pressure: 104/78 Pulse: 83 Respirations: 15 Pulse Ox (%): 98 Physical Exam: GENERAL: The patient is a well-developed, well-nourished, in no apparent distress. Alert and oriented x3. VITAL SIGNS: Reviewed HEENT: Neck supple, no JVP or bruits LUNGS: Currently on high flow at 80 % HEART: Regular rate and rhythm, no appreciable gallops, rubs, murmurs or extra heart sounds ABDOMEN: Soft, nontender, and nondistended. Positive bowel sounds. No hepatosplenomegaly was noted. EXTREMITIES: Without any cyanosis, clubbing, rash, lesions or peripheral edema. NEUROLOGIC: The patient is oriented to person, place and time. Strength and sensation are grossly intact. Face is symmetric. SKIN: Normal color, turgor and temperature. No ulcerations or rashes noted. Assessment & Plan Discharge Plan: LTAC Plan to discharge in: Greater than 2 days Physician Review Additional Text: COVID: Positive Chest x-ray: COMPARISON: January 08, 2001 FINDINGS: Marked bilateral pulmonary opacities. . The heart is normal size IMPRESSION: Marked bilateral pulmonary opacities have worsened since the prior exam probably pneumonia Follow-up chest x-ray 02/05/2021: COMPARISON: February 04 TECHNIQUE: AP portable chest image was obtained 02/05/2021 5:34 am . FINDINGS: Lung volumes are low. Patchy lung parenchymal opacification present similar to comparison. No new or progressive lung parenchymal finding seen. Heart and vasculature are normal. No pneumothorax or enlarging pleural effusions seen. Subcutaneous emphysema is similar or slightly diminished from comparison. No new or progressive pneumomediastinum. IMPRESSION: Stable patchy lung parenchymal opacification. No pneumothorax or progressive subcutaneous emphysema. Impression: Dyspnea secondary to acute respiratory failure with hypoxia related to bilateral Covid pneumonia with transient Covid encephalopathy Hypertension Rheumatoid arthritis Leukocytosis Depression Elevated liver function Plan: Dyspnea secondary to acute respiratory failure with hypoxia related to bilateral Covid pneumonia with transient Covid encephalopathy: Patient stable , not much improvement he is on 80 % high flow. Continue to maintain sats above 90%. Continue to monitor lab closely. Continue IV steroid. White count improved down to 18.9 . Patient was placed on Rocephin and Diflucan to cover for opportunistic infection. Patient agreeable to long-term acute facility placement but he want that close to family in [place]. Hypertension: No longer on medication. off IV Lasix. well controlled Rheumatoid arthritis: Continue gabapentin. off Celebrex due to thrombocytopenia. Leukocytosis: Likely from steroids. trending down at 18.9 Patient on Diflucan and Rocephin empirically . cont to monitor Thrombocytopenia: Resolved 433 today Depression: No suicidal ideation noted at this time. Will provide medication as needed. Psychiatry recommended no intervention at this time. Elevated liver function: worse today mildly with Steven 1.7, will consider US if get worse DVT prophylaxis: Eliquis CODE STATUS: This was readdressed with the patient. Patient wishes to be full code at this time.
[2021-02-07] MEDS: DOCUSATE NA 100 MG CAP PO SCH (20:02)
[2021-02-08] MEDS: HYDROCODONE/APAP 5/325 MG TAB PO SCH ×3 (05:12→20:07)
[2021-02-08 06:24] LABS: BUN Blood Urea Nitrogen 30 mg/dL (7-18); Bicarbonate 36 mmol/L (21-32); Glucose Level 183 mg/dL (74-106); Phosphorus 3.5 mg/dL (2.5-4.9); Sodium Level 137 mmol/L (136-145)
[2021-02-08 06:26] LABS: Absolute Lymphocytes (CBC) 0.2 K/uL (0.7-4.9); Basophils % 0.4 % (0-1.3); Hematocrit 42.5 % (39.6-49.0); Lymphocytes % 1.5 % (15.3-44.8); MPV 8.4 fL (7.6-11.3); Magnesium 2.3 mg/dL (1.8-2.4); Potassium 4.5 mmol/L (3.5-5.1); RBC Red Blood Cell Count 5.48 M/uL (4.33-5.43)
[2021-02-08] MEDS: levoFLOXacin 500 MG TAB PO SCH (08:16)
[2021-02-08] MEDS: METHYLPREDNISOLONE 40 MG INJ IV SCH (08:16)
[2021-02-08] MEDS: VITAMIN D 1000 UNIT TAB PO SCH (08:17)
[2021-02-08] MEDS: THIAMINE HCL 100 MG TABLET PO SCH (08:17)
[2021-02-08] MEDS: FLUCONAZOLE 100 MG TAB PO SCH (08:17)
[2021-02-08] MEDS: MULTIVIT W/ MINERAL TAB PO SCH (08:17)
[2021-02-08] MEDS: FAMOTIDINE 20 MG TAB PO SCH ×2 (08:18→20:06)
[2021-02-08] MEDS: DOCUSATE NA 100 MG CAP PO SCH ×2 (08:18→20:07)
[2021-02-08] MEDS: GABAPENTIN 300 MG CAP PO SCH ×3 (08:18→20:07)
[2021-02-08] MEDS: APIXABAN 5 MG TABLET PO SCH ×2 (08:18→20:07)
[2021-02-08] MEDS: ACETAMINOPHEN 500 MG TAB PO PRN (08:36)
[2021-02-08 08:42] LABS: C-Reactive Protein < 2.90 mg/L (<3.00)
[2021-02-08 10:12] LABS: Blood Morphology Comment NOT SEEN (NOT SEEN); Platelet Estimate ADEQ; White Blood Cell Scan OK (OK)
--- NOTE | 2021-02-08 13:36 | P.PN ---
Date of Service: 02/08/21 Patient Name: ELIER NEELY Date of : 1960 Patient Status: Inpatient Attending Provider: Giovanni Garcia Subjective Primary Care Provider: unknown Chief Complaint: COVID-19 pneumonia Subjective: still same on 80% FIO2 stable since yesterday , wanting to go to facility in [place] , he is complaining about his food Physical Examination - Vital Signs Temperature: 97.2 F Blood Pressure: 104/78 Pulse: 83 Respirations: 15 Pulse Ox (%): 98 Physical Exam: GENERAL: The patient is a well-developed, well-nourished, in no apparent distress. Alert and oriented x3. VITAL SIGNS: Reviewed HEENT: Neck supple, no JVP or bruits LUNGS: Currently on high flow at 80 % HEART: Regular rate and rhythm, no appreciable gallops, rubs, murmurs or extra heart sounds ABDOMEN: Soft, nontender, and nondistended. Positive bowel sounds. No hep atosplenomegaly was noted. EXTREMITIES: Without any cyanosis, clubbing, rash, lesions or peripheral edema. NEUROLOGIC: The patient is oriented to person, place and time. Strength and sensation are grossly intact. SKIN: Normal color, turgor and temperature. No ulcerations or rashes noted. Assessment & Plan Discharge Plan: LTAC Plan to discharge in: Greater than 2 days Physician Review Additional Text: COVID: Positive Chest x-ray: COMPARISON: January 08, 2001 FINDINGS: Marked bilateral pulmonary opacities. . The heart is normal size IMPRESSION: Marked bilateral pulmonary opacities have worsened since the prior exam probably pneumonia Follow-up chest x-ray 02/05/2021: COMPARISON: February 04 TECHNIQUE: AP portable chest image was obtained 02/05/2021 5:34 am . FINDINGS: Lung volumes are low. Patchy lung parenchymal opacification present similar to comparison. No new or progressive lung parenchymal finding seen. Heart and vasculature are normal. No pneumothorax or enlarging pleural effusions seen. Subcutaneous emphysema is similar or slightly diminished from comparison. No new or progressive pneumomediastinum. IMPRESSION: Stable patchy lung parenchymal opacification. No pneumothorax or progressive subcutaneous emphysema. Impression: Dyspnea secondary to acute respiratory failure with hypoxia related to bilateral Covid pneumonia with transient Covid encephalopathy Hypertension Rheumatoid arthritis Leukocytosis Depression Elevated liver function Plan: Dyspnea secondary to acute respiratory failure with hypoxia related to bilateral Covid pneumonia with transient Covid encephalopathy: Patient stable , not much improvement since yesterday, he is on 80 % high flow. Continue to maintain sats above 90%. Continue to monitor lab closely. Continue IV steroid. White count improved down to 14.5 today . Patient was placed on Rocephin and Diflucan to cover for opportunistic infection. Patient agreeable to long-term acute facility placement but he want that close to family in [place]. his ferritin up to 854 today, CRP nl Hypertension: No longer on medication. off IV Lasix. well controlled Rheumatoid arthritis: Continue gabapentin. off Celebrex due to thrombocytopenia. Leukocytosis: Likely from steroids. WBC trending down 14.5 now Patient on Diflucan and Rocephin empirically . cont to monitor Thrombocytosis: Resolved 320 today nl Depression: No suicidal ideation noted at this time. Will provide medication as needed. Psychiatry recommended no intervention at this time. Elevated liver function: Steven not done today, will order in am, if worse will consider US DVT prophylaxis: Eliquis CODE STATUS: Patient wishes to be full code at this time.
[2021-02-08] MEDS ORDERED: HYDRALAZINE HCL 20 MG/ML VIAL IV PRN (13:44)
--- NOTE | 2021-02-08 18:26 | P.PN ---
Subjective Date of Service: 02/08/21 Primary Care Provider: unknown Chief Complaint: COVID-19 pneumonia NC still onFio2 of 80%. NC, WBC declining Review of Systems Respiratory: Shortness of Breath Physical Examination - Vital Signs Temperature: 97.3 F Blood Pressure: 126/83 Pulse: 126 Respirations: 19 Pulse Ox (%): 91 - Physical Exam General: Alert, Cooperative - Studies Medications List Reviewed: Yes Assessment & Plan - Problems (Diagnosis) (1) Pneumonia due to COVID-19 virus Current Visit: No Status: Acute Plan: Resp failure NC , WBC is declining, Very hypoxic/ Change to po decasron
[2021-02-08] MEDS: dexAMETHasone 4 MG TAB PO SCH (20:07)
[2021-02-08] MEDS ORDERED: GUAIFENESIN/DM 5 ML UCUP PO PRN (22:49)
[2021-02-09 05:05] LABS: Absolute Lymphocytes (CBC) 0.2 K/uL (0.7-4.9); Basophils % 0.5 % (0-1.3); Hematocrit 42.5 % (39.6-49.0); Lymphocytes % 1.1 % (15.3-44.8); RBC Red Blood Cell Count 5.49 M/uL (4.33-5.43)
[2021-02-09 05:25] LABS: ALT/SGPT 242 U/L (12-78); AST/SGOT 121 U/L (15-37); Albumin 3.1 g/dL (3.4-5.0); Alkaline Phosphatase 177 U/L (45-117); BUN Blood Urea Nitrogen 29 mg/dL (7-18); Bicarbonate 38 mmol/L (21-32); Bilirubin Total 1.7 mg/dL (0.2-1.0); Glucose Level 204 mg/dL (74-106); Magnesium 2.2 mg/dL (1.8-2.4); Phosphorus 2.9 mg/dL (2.5-4.9); Potassium 4.1 mmol/L (3.5-5.1); Protein, Total 6.6 g/dL (6.4-8.2); Sodium Level 139 mmol/L (136-145)
[2021-02-09] MEDS: HYDROCODONE/APAP 5/325 MG TAB PO SCH ×2 (05:51→13:05)
[2021-02-09] MEDS: VITAMIN D 1000 UNIT TAB PO SCH (08:22)
[2021-02-09] MEDS: GABAPENTIN 300 MG CAP PO SCH ×2 (08:22→13:44)
[2021-02-09] MEDS: THIAMINE HCL 100 MG TABLET PO SCH (08:23)
[2021-02-09] MEDS: FLUCONAZOLE 100 MG TAB PO SCH (08:23)
[2021-02-09] MEDS: DOCUSATE NA 100 MG CAP PO SCH (08:23)
[2021-02-09] MEDS: levoFLOXacin 500 MG TAB PO SCH (08:23)
[2021-02-09] MEDS: MULTIVIT W/ MINERAL TAB PO SCH (08:23)
[2021-02-09] MEDS: APIXABAN 5 MG TABLET PO SCH (08:24)
[2021-02-09] MEDS: FAMOTIDINE 20 MG TAB PO SCH (08:24)
--- NOTE | 2021-02-09 08:27 | P.PN ---
Subjective Date of Service: 02/09/21 Primary Care Provider: unknown Chief Complaint: COVID-19 pneumonia Improving oxygenation is better new complaints plan to wean down on the O2 Review of Systems General: Weakness Respiratory: Shortness of Breath Physical Examination - Vital Signs Temperature: 97.3 F Blood Pressure: 125/89 Pulse: 109 Respirations: 15 Pulse Ox (%): 94 - Physical Exam General: Alert, In no apparent distress, Cooperative - Studies Medications List Reviewed: Yes Assessment & Plan - Problems (Diagnosis) (1) Pneumonia due to COVID-19 virus Current Visit: No Status: Acute Plan: Doing better doing well plan to continue to wean down on the O2 add low-dose Lasix currently on p.o. Decadron
--- NOTE | 2021-02-09 08:50 | RAD REPORT ---
EXAM DESCRIPTION: RAD - Chest Single View - 02/09/2021 5:31 am CLINICAL HISTORY: pneumonia Chest pain. COMPARISON: Chest Single View dated 02/08/2021; Chest Single View dated 02/07/2021; Chest Single View dated 02/06/2021; Chest Single View dated 02/05/2021 FINDINGS: Portable technique limits examination quality. Mild bilateral pulmonary opacities are seen, mildly worsened since yesterday's study. Pneumomediastin um is again noted, appearing unchanged. Right-sided PICC line is stable in position.The heart is norm al in size. IMPRESSION: Mild worsening is seen in lung aeration since yesterday's study.
[2021-02-09] MEDS ORDERED: FLUCONAZOLE 100 MG TAB PO SCH (09:00)
[2021-02-09] MEDS ORDERED: FUROSEMIDE 20 MG TABLET PO SCH (09:00)
[2021-02-09] MEDS: dexAMETHasone 4 MG TAB PO SCH (09:45)
--- NOTE | 2021-02-09 13:54 | RAD REPORT ---
EXAM DESCRIPTION: Chest Single View 02/09/2021 12:05 AM CDT CLINICAL HISTORY: 61 years, Male, PICC placement COMPARISON: 02/07/2021 FINDINGS: Single view of the chest was obtained portable. Prior films were compared. There has been interval placement of a right upper extremity PICC line tip of the catheter within the cavoatrial sincere ction. External EKG leads within the [id number] limits diagnosis. The lung volume is decreased. Arely cency surrounding the heart and mediastinum correspond to pneumomediastinum similar to prior study. A gain there is a small right lower neck subcutaneous emphysema The heart is not enlarged. The thorac ic aorta is unremarkable. Minimal airspace opacity within the left lung base. The rest of the soft tissue and bony structures demonstrate to be unremarkable. IMPRESSION: Right upper extremity PICC line in good position. Minimal airspace opacity left lung base. Pneumomediastinum similar to prior study. Electronically signed by: Jose Juan Thorpe MD 02/09/2021 12:07 AM CDT Due to temporary technical issues with the PACS/Fluency reporting system, reports are being signed by the in house radiologists without review as a courtesy to insure prompt reporting. The interpreting radiologist is fully responsible for the content of the report.
[2021-02-09 14:22] VITALS: O2SAT 91
[2021-02-09 18:02] VITALS: TEMP 96
[2021-02-09 18:06] VITALS: BP 122/83
[2021-02-09] MEDS ORDERED: ENSURE ENLIVE 237 ML CAN PO SCH (21:00)
--- NOTE | 2021-02-16 09:58 | P.DS ---
Discharge Date: 02/09/21 Primary Care Provider: unknown Disposition: [facility] Discharge Condition: Reason for Admission: COVID-19 pneumonia - Problems (1) Pneumonia due to COVID-19 virus Status: Acute (2) History of rheumatoid arthritis Status: Acute (3) Hypoxemia Status: Acute Brief History of Present Illness: Patient is a 60-year-old gentleman who came to the hospital with worsening shortness of breath. Patient has worsening hypoxemia at home. Patient was satting 50%. Patient son called EMS and they came out and decided to bring patient into the emergency room for further evaluation. In the emergency room patient was placed on a non-rebreather and his sats were in the low 90s. Patient be admitted to the hospital for further evaluation. Patient's inflammatory markers are elevated. CRP is significantly elevated. Will go ahead and give additional IV steroids to try to get him to feeling better. Hospital Course: Patient has done well during his hospital stay. Patient had quite a prolonged hospitalization. His respiratory status is stable. Patient remains on high flow. Will continue at [facility]. Patient will also need continued physical therapy. Patient strengths is severely diminished. Patient is very tachycardic and tachypneic upon ambulation . At this time, patient is stable for discharge. Vital Signs/Physical Exam: Temp Pulse Resp BP Pulse Ox 96.0 F L 120 H 16 122/83 93 02/09/21 16:00 02/09/21 18:00 02/09/21 18:00 02/09/21 18:00 02/09/21 18:00 General: Alert, In no apparent distress, Oriented x3 Laboratory Data at Discharge: WBC 16.30 K/uL (4.3-10.9) H 02/09/21 04:27 Hgb 13.7 g/dL (13.6-17.9) 02/09/21 04:27 Hct 42.5 % (39.6-49.0) 02/09/21 04:27 Plt Count 284 K/uL (152-406) 02/09/21 04:27 PT 21.0 SECONDS (9.5-12.5) H 01/23/21 14:33 INR 1.82 01/23/21 14:33 APTT 22.4 SECONDS (24.3-36.9) L 01/23/21 14:33 Sodium 139 mmol/L (136-145) 02/09/21 04:27 Potassium 4.1 mmol/L (3.5-5.1) 02/09/21 04:27 BUN 29 mg/dL (7-18) H 02/09/21 04:27 Creatinine 0.63 mg/dL (0.55-1.3) 02/09/21 04:27 Glucose 204 mg/dL (74-106) H 02/09/21 04:27 Phosphorus 2.9 mg/dL (2.5-4.9) 02/09/21 04:27 Magnesium 2.2 mg/dL (1.8-2.4) 02/09/21 04:27 Total Bilirubin 1.7 mg/dL (0.2-1.0) H 02/09/21 04:27 AST 121 U/L (15-37) H 02/09/21 04:27 ALT 242 U/L (12-78) H 02/09/21 04:27 Alkaline Phosphatase 177 U/L (45-117) H 02/09/21 04:27 Lipase 75 U/L (73-393) 01/18/21 13:30 Home Medications: Ascorbic Acid [Vitamin C*] 1 tab PO DAILY 01/04/21 Celecoxib [Celebrex*] 100 mg PO BID 01/04/21 Cholecalciferol (Vitamin D3) [Vitamin D3] 1,000 unit PO DAILY 01/04/21 Cyanocobalamin (Vitamin B-12) [Vitamin B12] 2,500 mcg PO DAILY 01/04/21 Folic Acid 1 mg PO DAILY 01/04/21 Gabapentin 300 mg PO TID 01/04/21 Hydrocodone Bit/Acetaminophen [Hydrocodon-Acetaminophn 10-325] 1 tab PO TID 01/04/21 Multivit-Min/FA/Lycopen/Lutein [Centravites 50 Plus Tablet] 1 tab PO DAILY 01/04/21 Secukinumab [Cosentyx Pen] 300 mg SQ SEECOM 01/04/21 Valsartan [Diovan*] 160 mg PO DAILY 01/04/21 Zinc Sulfate [Zinc Sulfate*] 1 tab PO DAILY 01/04/21 Albuterol Inhaler [Ventolin Inhaler*] 2 puff IH Q6H PRN #1 hfa.aer.ad 01/12/21 Benzonatate [Tessalon Perle] 200 mg PO TID PRN #30 cap 01/12/21 Budesonide/Formoterol Fumarate [Symbicort 160-4.5 Mcg Inhaler] 2 puff IH BID #1 hfa.aer.ad 01/12/21 predniSONE [Prednisone*] 20 mg PO BID #26 tab 01/12/21 Physician Discharge Instructions: -OK TO DC To [facility] -FOLLOW-UP WITH Hospitalist @ [facility] -FOLLOW-UP WITH Pulmonary IN 1-2 WEEKS -PLEASE MAKE SURE ALL DIAGNOSTIC STUDIES ARE AVAILABLE AND HAVE BEEN REVIEWED WITH PATIENT PRIOR TO DISCHARGE -RETURN TO THE ER IF symptoms worsens -CALL DR. NOVAK AT [phone] IF ANY QUESTIONS REGARDING HOSPITAL STAY -PLEASE CALL THE FLOOR AT [phone] IF ANY MEDICATION OR NURSING QUESTIONS Diet: AHA Activity: Fall precautions Followup: NONE,NONE [Primary Care Provider] - Time spent managing pt's care (in minutes): 35
--- NOTE | 2021-02-17 08:43 | CON ---
The patient was admitted via the ER on 01/18/2021, on account of hypoxia due to respiratory failure s econdary to COVID-19 pneumonia. Psychiatry was consulted to evaluate the patient for severe depressi on and possible suicidal ideation. Assessment was done on 02/04/2021. History Of Present Illness: Mr. Jose Juan Spence, aged 61-year-old male, with no significant psyc hiatric history. The patient admits to be feeling sad and tearful depressed. Stated that he is sad of the recent of his , who apparently also had COVID-19 infection and was admitt ed recently with him. The patient denies suicidal ideation. States he has never been depressed. Mix s not had any psychiatric issues. He denies past suicidal attempt and states he is looking forward o f possibly going home to be with his family. The patient states he has been for a long time, and he knows that he is going to miss his easily, but with the support of his family and his ch ildren, he hopes to overcome the situation. The patient is agreeable to follow up with the therapist , to have an agreement on discharge from the hospital. He denies psychotic symptoms. No history of manic or hypomanic episode. No history of alcohol or substance abuse. States he works for _ and has been working here for 27 years. Objective: Vital Signs: Blood pressure is 125/89, pulse rate is 109, temperature is 97.3 Fahrenheit , respiratory rate is The patient is on oxygen via nasal cannula. Mental Status Examination: The patient is a well-nourished male, dressed in hospital gown. respiratory distress. Oxygen via nasal cannula. Cooperative with interview. Speech is continuous. Alert and oriented to person, place, and time. Memory and concentration opti mal. Mood, he described as dysphoric. Affect is mood congruent. Thought process linear and at time s, circumstantial. Thought content, no suicidal ideation or homicidal ideation. The patient has tho ughts ruminating about his late . Fund of knowledge fair. Language skills are Impression: 61-year-old male, with no previous psychiatric history, sadness over the recent of his . No suicidality and no past history of suicidal attempt. Does have si gnificant support from family and friends. No history of suicide or alcohol abuse. Prognosis is merlyn r. Diagnoses: 1.Major depressive disorder. 2. and of a family member. Recommendation: 1.No antidepressants recommended at this time. 2.Recommend the patient to follow up with individual psychotherapy on discharge. 3.Discontinue one-on-one observation. 4. observation. 5.Recommendation to treatment team. Thank you for the consult. SALMA Voice ID: [id number] Report ID: [id number]
== END 2021-02-09 18:40 | DRG 177 ==
LOC: ER 13:08 → ERHOLD 20:43 → 4TH 01-19 22:52 → 3RD-ICU 01-22 10:30 → 4TH 01-29 06:40 → 3RD-ICU 02-04 04:22
PROVIDERS: ADMIT Hospitalist; ATTEND Hospitalist
PROC: 0T9B70Z Drainage of Bladder with Drainage Device, Via Natural or Artificial Opening (ICD-10-PCS; 2021-01-21)
PROC: 02HV33Z Insertion of Infusion Device into Superior Vena Cava, Percutaneous Approach (ICD-10-PCS; principal; 2021-02-08)
DX: U07.1 COVID-19 (principal); J12.82 Pneumonia due to coronavirus disease 2019; J96.01 Acute respiratory failure with hypoxia; K85.90 Acute pancreatitis without necrosis or infection, unspecified; G93.49 Other encephalopathy; R00.0 Tachycardia, unspecified; M06.9 Rheumatoid arthritis, unspecified; I10 Essential (primary) hypertension; D69.6 Thrombocytopenia, unspecified; F32.9 Major depressive disorder, single episode, unspecified
CPT/HCPCS: 36415; 36569; 71045; 80048; 80053; 80076; 81003; 81015; 82728; 82805; 82947; 83010; 83540; 83605; 83615; 83690; 83735; 84100; 84145; 84466; 84484; 85025; 85027; 85379; 85610; 85730; 86140; 87040; 93005; 94002; 94003; 94010; 94760; 96372; 97110; 97161; 97530; 99285; J1940; J2270; J2405; J2920; J2930; J3010; J7040; J8540; U0003